=== PATIENT | female | born 1950 | race Caucasian/White ===

== ENCOUNTER → 2016-11-26 | Outpatient (CLI) | payer OTHER ==
[~2016-11-26] MED LIST: ACET500T57 PO; ATEN50TA8 PO; CLOP1TAB15 PO; IPRA1AER2 INH; NAPR1TAB9 PO; NARA2.5T2 PO; SNG10 PO
--- NOTE | 2016-11-26 15:47 | DIAGNOSTIC IMAGING REPORT ---
LEFT CLAVICLE 2 VIEWS HISTORY: Left clavicle PAIN COMPARISON: None. FINDINGS: There is no fracture or dislocation. Soft tissues are unremarkable. No radiopaque foreign bodies. IMPRESSION: No fractures. Electronically signed by: Ash Lopez M.D. 11/26/2016 3:46 PM Dictated Date/Time: 11/26/2016 3:45 PM
--- NOTE | 2016-11-26 15:49 | DIAGNOSTIC IMAGING REPORT ---
LEFT SHOULDER MIN 2 VIEWS ROUTINE CLINICAL HISTORY: PAIN pain COMPARISON: None. DISCUSSION: The bones and joint spaces appear intact. There is no evidence of fracture, dislocation or bony disease. There is no evidence for soft tissue swelling. IMPRESSION: Negative study. Electronically signed by: Rai Cordoba M.D. 11/26/2016 3:48 PM Dictated Date/Time: 11/26/2016 3:44 PM
--- NOTE | 2016-11-27 15:20 | CODING QUERY NO DIAGNOSIS ---
TREATMENT RENDERED WITHOUT A DIAGNOSIS To promote full compliance with coding requirements relating to patient care, physician participation is requested in all cases of accounting file clerk uncertainty. Please assist us with providing a diagnosis/symptom for the test(s) below: A diagnosis/symptom was not documented on your Order. A valid diagnosis/symptom is required to bill all insurances. Please remember that we are unable to code a diagnosis of rule out, probable, possible, questionable, or suspected. Tests that require a diagnosis: * CLAVICLE XRAY DIAGNOSIS: * SHOULDER MIN 2 VIEWS DIAGNOSIS: Provider Signature: Date: Thank you Cherelle Pacheco RIVS Information Management Once completed, please kindly fax back to [phone] For questions please call [phone]
== END | disposition home or self-care (01) ==
LOC: C.RAD 15:01
PROVIDERS: ATTEND Physician Assistant Medical
DX: Z00.00 Encounter for general adult medical examination without abnormal findings (principal)

== ENCOUNTER → 2017-03-26 | Outpatient (CLI) | payer OTHER ==
[2017-03-26 13:01] LABS: ESTIMATED AVERAGE GLUCOSE 120 mg/dl; HA1C FLAG Normal (Normal)
[2017-03-26 13:49] LABS: CHOLESTEROL/HDL RATIO 5.1
== END | disposition home or self-care (01) ==
LOC: C.LABBFT 08:18
PROVIDERS: ATTEND Family Medicine
DX: R73.01 Impaired fasting glucose (principal); Z91.89 Other specified personal risk factors, not elsewhere classified

== ENCOUNTER → 2018-05-16 | Outpatient (CLI) | payer OTHER, MEDICARE ==
[~2018-05-16] MED LIST changes: -ACET500T57 PO; +ACET500T58 PO; +MONT1TAB3 PO; -SNG10 PO
--- NOTE | 2018-05-16 13:08 | MAMMOGRAPHY REPORT ---
BILATERAL DIGITAL SCREENING MAMMOGRAM TOMOSYNTHESIS WITH CAD: 05/16/2018 CLINICAL HISTORY: Routine screening. Patient has no complaints. TECHNIQUE: The study was acquired using full field digital technology and interpreted from soft copy. Breast tomosynthesis in addition to standard 2D mammography was performed. Current study was also ev aluated with a Computer Aided Detection (CAD) system. COMPARISON: Comparison is made to exams dated: 02/14/2016 mammogram, 01/18/2015 mammogram, 03/10/2004 ma mmogram, 10/08/2009 mammogram, and 06/23/2013 ultrasound - [facility] [address]. BREAST COMPOSITION: The tissue of both breasts is heterogeneously dense, which may obscure small mass es. FINDINGS: The parenchymal pattern is unchanged. No developing mass, architectural distortion or cluster of susp icious microcalcifications is seen in either breast. IMPRESSION: ACR BI-RADS CATEGORY 2: BENIGN There is no mammographic evidence of malignancy. A 1 year screening mammogram is recommended.( 019) The patient will receive written notification of the results. Some breast cancers are not detected with mammography. A negative mammographic report should not kimberly y biopsy if a clinically suggestive mass is present. Michelle Sharp M.D. ay/:05/16/2018 10:49:17 Photographer Lithographic: RT Umesh(Tracy)(M), [facility] [address] letter sent: Normal 1/2 BI-RADS Code: ACR BI-RADS Category 2: Benign
== END | disposition home or self-care (01) ==
LOC: C.MAMM 09:30
PROVIDERS: ATTEND Family Medicine
DX: Z12.31 Encounter for screening mammogram for malignant neoplasm of breast (principal)

== ENCOUNTER 2024-10-13 17:56 | Inpatient (IN) ==
[2024-10-13 18:33] LABS: Basophils # (auto) 0.06 K/uL (0.00-0.20); Basophils % (auto) 0.7 %; Eosinophils # (auto) 0.13 K/uL (0.00-0.50); Eosinophils % (auto) 1.5 %; Hemoglobin 14.7 g/dl (12.0-16.0); Immature Granulocytes # (auto) 0.03 K/uL (0.01-0.20); Immature Granulocytes % (auto) 0.3 %; Lymphocytes # (auto) 2.72 K/uL (1.20-3.40); Mean Corpuscular Hemoglobin 29.9 pg (25.0-34.0); Mean Corpuscular Hgb Conc 34.2 g/dL (32.0-36.0); Mean Corpuscular Volume 87.4 fL (80.0-100.0); Mean Platelet Volume 9.9 fL (9.4-12.4); Monocytes # (auto) 0.92 K/uL (0.11-0.59); Monocytes % (auto) 10.5 %; Neutrophils # (auto) 4.91 K/uL (1.40-6.50); Platelet Count 244 K/uL (130-400); RDW Coefficient of Variation 13.2 % (11.5-14.5); RDW Standard Deviation 42.1 fL (36.4-46.3); Red Blood Count 4.92 M/uL (4.20-5.40); White Blood Count 8.77 K/ul (4.8-10.8)
[2024-10-13] MEDS: ONDANSETRON INJ 2 MG/ML 2 ML VIAL IV STA (18:50)
[2024-10-13 18:51] LABS: Albumin Globulin Ratio 1.3 (0.9-2); BUN Creatinine Ratio 20.8 (10-20); Bilirubin,Total 0.5 mg/dl (0.2-1.0); Calcium 9.2 mg/dl (8.6-10.3); Creatinine Clr Calc Pharmacy 50.3 ml/min
[2024-10-13] MEDS: MoRPHine SULFATE 4 MG/ML 1 ML CARP\\VIAL IV STA (18:52)
--- NOTE | 2024-10-13 18:53 | Emergency Department Note ---
Impression & Plan Hydronephrosis due to obstruction of ureter, Hypertension, Ureterolithiasis, Acute left flank pain ED Provider Note NAME: DEANNA LEES AGE: 74 SEX: F : 1950 ARRIVES VIA: Walk-In INFORMANT: Patient ED PROVIDER(S): Quentin Mathew MD CHIEF COMPLAINT: Left flank pain PLAN: Disposition: Admit MEDICAL DECISION MAKING: The patient is a pleasant 74-year-old woman with a past medical history of small bowel perforation in 2016, who presents to the emergency department via walk-in for evaluation of acute onset left flank and lower abdominal pain associated nausea and vomiting began approximate an hour prior to arrival. Patient denies any history of similar symptoms. She denies any history of kidney stones. She denies any blood in urine or burning with urination. She denies any fevers, chills, cough, congestion, diarrhea or constipation. On evaluation the patient is uncomfortable but no distress, afebrile with blood pressure in the 230/130s in the setting of her discomfort and vital signs otherwise stable. She appears clinically dry. She has mild left lower abdominal and left flank discomfort without discrete tenderness. EKG without overt acute ischemia. CXR negative for acute cardiopulmonary process per my personal preliminary review/interpretation. WBC, H/H and platelets within normal limits. Chemistry without metabolic acidosis. LFTs unremarkable. High-sensitivity troponin 3.1, within normal limits. UA with out evidence of infection. CT of the abdomen pelvis was performed and demonstrates mild left-sided hydronephrosis and hydroureter related to a 2 mm distal ureteral calculus send 1 cm of the UVJ. Upon reevaluation patient did report some improvement following IV hydration, IV morphine x 2, Zofran and Phenergan though she did report feeling as though the pain was returning and ultimately did prefer admission for further observation and management. Case was discussed with Dr. Coronado, [facility] hospitalist, who will evaluate the patient for admission. Further management per admitting team. Triage Nursing notes reviewed and agree them. Prior/external medical records reviewed Vital Signs: reviewed Differential diagnosis: Renal colic, UTI, appendicitis, diverticulitis, mesenteric ischemia, aortic pathology, infections, inflammatory bowel disease, PUD, biliary pathology, as well as other pathologies. ER treatment provided: See below. Diagnostics interpreted by me: ECG: Normal sinus rhythm, 64 bpm, no ectopy, no overt ST elevation or depression, LVH, QTc 441, QRS 82 Cardiac Monitoring: An order for continuous cardiac monitoring was placed and demonstrated Normal sinus rhythm, 64 bpm, no ectopy. Laboratory studies: See below Imaging studies: See below Consultation(s): Case was discussed with Dr. Coronado, [facility] hospitalist, who will evaluate the patient for admission. HPI: The patient is a pleasant 74-year-old woman with a past medical history of small bowel perforation in 2016, who presents to the emergency department via walk-in for evaluation of acute onset left flank and lower abdominal pain associated nausea and vomiting began approximate an hour prior to arrival. Patient denies any history of similar symptoms. She denies any history of kidney stones. She denies any blood in urine or burning with urination. She denies any fevers, chills, cough, congestion, diarrhea or constipation. ROS: See above HPI for pertinent positives & negatives. A total of 10 systems reviewed and were otherwise negative. VITALS:See Below PHYSICAL EXAMINATION: GENERAL: Awake, alert, uncomfortable-appearing, in no distress, BMI 28.9. HENT: Normocephalic, atraumatic. Oropharynx with dry mucous membranes and otherwise unremarkable. EYES: Normal conjunctiva. Sclera non-icteric. NECK: Supple. No nuchal rigidity. FROM. No JVD. RESPIRATORY: Clear to auscultation. CARDIAC: Regular rate, normal rhythm. Extremities warm and well perfused. Pulses equal. ABDOMEN: Soft, non-distended. Mild left lower abdominal and left flank discomfort without discrete tenderness. MUSCULOSKELETAL: Chest examination reveals no tenderness. The back is symmetrical on inspection without obvious abnormality. There is no CVA tenderness to palpation. No joint edema. LOWER EXTREMITIES: Calves are equal size bilaterally and non-tender. No edema. No discoloration. NEURO: Normal sensorium. No sensory or motor deficits noted. SKIN: No rash or jaundice noted. Quentin Mathew MD Past Med/Surg History Problem List (Updated 10/14/24 @ 03:09 by Quentin Mathew MD) Acute left flank pain (Acute) Ureterolithiasis (Acute) Hypertension (Acute) Hydronephrosis due to obstruction of ureter (Acute) COVID (Acute) HTN (hypertension) (Chronic) Duodenal perforation (Acute) Dysphagia (Acute) Hemorrhagic cystitis (Acute) Hemorrhagic cystitis (Acute) Swelling of right little finger (Acute) Social History Smoking Status: Former smoker Preferred Language: Hebrew Feels Safe at Home: Yes Allergies Allergies Allergy/AdvReac Type Severity Reaction Status Date / Time spironolactone Allergy Mild RAPID HR Verified 10/13/24 23:59 AND SOB SUN Inhibitors Allergy Unknown SWELLING Verified 10/13/24 23:59 IN FACE apple Allergy Unknown HIVES Verified 10/13/24 23:59 Bactrim Allergy Unknown THRUSH Unverified 04/10/18 11:09 cabbage Allergy Unknown HIVES Verified 10/13/24 23:59 nut - unspecified Allergy Unknown SWELLING Verified 10/13/24 23:59 orange Allergy Unknown HIVES Verified 10/13/24 23:59 sulfamethoxazole [Bactrim] Allergy Unknown THRUSH Unverified 10/13/24 23:59 trimethoprim [Bactrim] Allergy Unknown THRUSH Unverified 10/13/24 23:59 Home Meds Home Medications Medication Instructions Recorded Confirmed albuterol sulfate 90 mcg/actuation 2 inh inhalation Q4H PRN Shortness 10/13/24 10/14/24 breath activated powder inhaler Of Breath atenolol 50 mg tablet 50 mg PO DAILY 10/13/24 10/14/24 clopidogrel 75 mg tablet (Plavix) 75 mg PO DAILY 10/13/24 10/14/24 famotidine 40 mg tablet 40 mg PO DAILY 10/13/24 10/14/24 montelukast 10 mg tablet 10 mg PO DAILY 10/13/24 10/14/24 pantoprazole 40 mg tablet,delayed 40 mg PO DAILY 10/13/24 10/14/24 release (Protonix) polyethylene glycol 3350 17 gram 17 g PO DAILY 10/13/24 10/14/24 oral powder packet (Miralax) psyllium 1 packet PO DAILY 10/13/24 10/14/24 Results & Data (ED) Vital Signs Vital Signs - 24 hr 10/13/24 17:57 10/13/24 17:57 10/13/24 18:57 Temperature 36.6 C Temperature Source Temporal Artery Scan Pulse Rate 71 Pulse Rate [Apical] Respiratory Rate 18 18 Respiratory Effort / Characteristics Respiratory Depth Respiratory Pattern Blood Pressure 239/131 H Blood Pressure [Right Arm] Blood Pressure Mean 167 Blood Pressure Mean [Right Arm] Blood Pressure Position [Right Arm] Pulse Oximetry 98 96 91 Oxygen Delivery Method Room Air Sepsis Recent Fever Within 48 Hours No Sepsis New/Unexplained Change in Mental Status N/A Sepsis Action Taken by Nursing No Action Required 10/13/24 18:57 10/13/24 19:02 10/13/24 19:07 Temperature Temperature Source Pulse Rate 74 63 Pulse Rate [Apical] 64 Respiratory Rate 18 19 Respiratory Effort / Characteristics Non-Labored Spontaneous Respiratory Depth Normal Respiratory Pattern Regular Blood Pressure Blood Pressure [Right Arm] 221/111 H Blood Pressure Mean Blood Pressure Mean [Right Arm] 147 Blood Pressure Position [Right Arm] Pulse Oximetry 91 93 Oxygen Delivery Method Room Air Room Air Sepsis Recent Fever Within 48 Hours Sepsis New/Unexplained Change in Mental Status Sepsis Action Taken by Nursing 10/13/24 19:55 10/13/24 20:04 10/13/24 20:30 Temperature Temperature Source Pulse Rate Pulse Rate [Apical] 87 90 87 Respiratory Rate 22 20 20 Respiratory Effort / Characteristics Non-Labored Spontaneous Non-Labored Spontaneous Respiratory Depth Normal Normal Respiratory Pattern Regular Regular Blood Pressure Blood Pressure [Right Arm] 250/133 H 195/106 H 186/133 H Blood Pressure Mean Blood Pressure Mean [Right Arm] 172 135 150 Blood Pressure Position [Right Arm] Semi-fowlers Semi-fowlers Semi-fowlers Pulse Oximetry 93 92 93 Oxygen Delivery Method Room Air Room Air Room Air Sepsis Recent Fever Within 48 Hours Sepsis New/Unexplained Change in Mental Status Sepsis Action Taken by Nursing 10/13/24 20:55 10/13/24 21:30 10/13/24 22:00 Temperature Temperature Source Pulse Rate Pulse Rate [Apical] 80 105 H 95 H Respiratory Rate 19 18 26 H Respiratory Effort / Characteristics Non-Labored Spontaneous Non-Labored Spontaneous Non-Labored Spontaneous Respiratory Depth Normal Normal Normal Respiratory Pattern Regular Regular Regular Blood Pressure Blood Pressure [Right Arm] 204/107 H 200/120 H 208/115 H Blood Pressure Mean Blood Pressure Mean [Right Arm] 139 146 146 Blood Pressure Position [Right Arm] Semi-fowlers Semi-fowlers Pulse Oximetry 93 91 93 Oxygen Delivery Method Room Air Room Air Room Air Sepsis Recent Fever Within 48 Hours Sepsis New/Unexplained Change in Mental Status Sepsis Action Taken by Nursing 10/13/24 22:52 10/13/24 23:04 Temperature Temperature Source Pulse Rate 81 Pulse Rate [Apical] 73 Respiratory Rate 25 H Respiratory Effort / Characteristics Non-Labored Spontaneous Respiratory Depth Normal Respiratory Pattern Regular Blood Pressure Blood Pressure [Right Arm] 184/112 H Blood Pressure Mean Blood Pressure Mean [Right Arm] 136 Blood Pressure Position [Right Arm] Semi-fowlers Pulse Oximetry 93 Oxygen Delivery Method Room Air Sepsis Recent Fever Within 48 Hours Sepsis New/Unexplained Change in Mental Status Sepsis Action Taken by Nursing Laboratory Data 10/13/24 18:12 10/13/24 18:12 Lab Results 10/13/24 10/13/24 Range/Units 18:12 18:40 WBC 8.77 (4.8-10.8) K/ul RBC 4.92 (4.20-5.40) M/uL Hgb 14.7 (12.0-16.0) g/dl Hct 43.0 (37.0-47.0) % MCV 87.4 (80.0-100.0) fL MCH 29.9 (25.0-34.0) pg MCHC 34.2 (32.0-36.0) g/dL RDW Std Deviation 42.1 (36.4-46.3) fL RDW Coeff of Heri 13.2 (11.5-14.5) % Plt Count 244 (130-400) K/uL MPV 9.9 (9.4-12.4) fL Immature Gran % (Auto) 0.3 % Neut % (Auto) 56.0 % Lymph % (Auto) 31.0 % [place] % (Auto) 10.5 % Eos % (Auto) 1.5 % Baso % (Auto) 0.7 % Neut # (Auto) 4.91 (1.40-6.50) K/uL Lymph # (Auto) 2.72 (1.20-3.40) K/uL [place] # (Auto) 0.92 H (0.11-0.59) K/uL Eos # (Auto) 0.13 (0.00-0.50) K/uL Baso # (Auto) 0.06 (0.00-0.20) K/uL Immature Gran # (Auto) 0.03 (0.01-0.20) K/uL PT 9.7 (9.0-12.0) Seconds INR 0.9 (0.9-1.1) APTT 25 (21-31) Seconds PTT Ratio 0.9 Sodium 142 (136-145) mmol/L Potassium 4.0 (3.5-5.1) mmol/L Chloride 108 H (98-107) mmol/L Carbon Dioxide 28 (21-32) mmol/L Anion Gap 6 (3-11) BUN 21 (6-23) mg/dl Creatinine 1.01 (0.6-1.2) mg/dl Est Cr Clr Drug Dosing 50.3 ml/min eGFR 59.15 BUN/Creatinine Ratio 20.8 H (10-20) Glucose 115 H (70-99(Fasting)) mg/dl Calcium 9.2 (8.6-10.3) mg/dl Total Bilirubin 0.5 (0.2-1.0) mg/dl AST 18 (13-39) U/L ALT 18 (7-52) U/L Alkaline Phosphatase 89 (34-104) U/L Troponin I High Sens 3.1 (0-14) pg/ml Total Protein 7.0 (6.0-8.3) gm/dl Albumin 4.0 (3.4-5.0) gm/dl Globulin 3.0 (2.5-4.0) gm/dl Albumin/Globulin Ratio 1.3 (0.9-2) Urine Color Yellow Urine Appearance Clear (Clear) Urine pH 6.0 (4.5-7.5) Ur Specific [place] 1.017 (1.000-1.030) Urine Protein Negative (Negative) Urine Glucose (UA) Negative (Negative) Urine Ketones Negative (Negative) Urine Blood Trace H (Negative) Urine Nitrite Negative (Negative) Urine Bilirubin Negative (Negative) Urine Urobilinogen Negative (Negative) Ur Leukocyte Esterase Negative (Negative) Urine WBC (Auto) 0-5 (0-5) /hpf Urine RBC (Auto) 3-5 H (0-2) /hpf U Hyaline Cast (Auto) 0-2 (0-2) /lpf U Epithel Cells (Auto) 0-2 (0-2) /hpf Urine Bacteria (Auto) None Seen (None Seen) Administered Medications Discontinued Medications Hydromorphone HCl (Hydromorphone Inj 0.5 Mg/0.5 Ml Syr) 0.5 mg IV NOW STA Stop: 10/13/24 23:18 Last Admin: 10/13/24 23:28 Dose: 0.5 mg Documented By: Acetaminophen (Ofirmev) 1,000 mg in 100 mls @ 400 mls/hr IV NOW STA Stop: 10/13/24 19:00 Last Infusion: 10/13/24 19:59 Dose: Infused Documented By: Admin: 10/13/24 19:05 Dose: 400 mls/hr Documented By: ALAYNA Sodium Chloride (Nss) 1,000 mls @ 999 mls/hr IV .Q1H1M ONE Stop: 10/13/24 19:46 Last Infusion: 10/13/24 20:37 Dose: Infused Documented By: Admin: 10/13/24 18:57 Dose: 999 mls/hr Documented By: ALAYNA Promethazine HCl (Phenergan) 6.25 mg in 50.25 mls @ 201 mls/hr IV NOW STA Stop: 10/13/24 20:02 Last Admin: 10/13/24 20:55 Dose: Not Given Documented By: ALAYNA Ioversol (Optiray 320 100ml) 93 ml IV ONCE ONE Stop: 10/13/24 19:16 Last Admin: 10/13/24 19:15 Dose: 93 ml Documented By: EHSAN Ioversol (Optiray 320 100ml) 113 ml IV ONCE ONE Stop: 10/13/24 19:38 Last Admin: 10/13/24 19:37 Dose: 113 ml Documented By: EHSAN Labetalol HCl (Labetalol Hcl Iv 5 Mg/Ml 20ml) 10 mg IV NOW STA Stop: 10/14/24 00:53 Last Admin: 10/14/24 01:10 Dose: 10 mg Documented By: Labetalol HCl (Labetalol Hcl Iv 5 Mg/Ml 20ml) 10 mg IV NOW STA Stop: 10/14/24 02:31 Last Admin: 10/14/24 02:46 Dose: 10 mg Documented By: Morphine Sulfate (Morphine Sulfate 4 Mg/Ml 1 Ml Carp\Vial) 4 mg IV NOW STA Stop: 10/13/24 18:45 Last Admin: 10/13/24 18:52 Dose: 4 mg Documented By: ALAYNA Morphine Sulfate (Morphine Sulfate 10 Mg/Ml Carp/Vial) 6 mg IV NOW STA Stop: 10/13/24 19:48 Last Admin: 10/13/24 19:54 Dose: 6 mg Documented By: ALAYNA Ondansetron HCl (Ondansetron Inj 2 Mg/Ml 2 Ml Vial) 4 mg IV NOW STA Stop: 10/13/24 18:45 Last Admin: 10/13/24 18:50 Dose: 4 mg Documented By: ALAYNA Imaging Data Radiologist's Impression: Abdomen/Pelvis CT 10/13/24 18:16 Exam(s): CT ABDOMEN + PELVIS With Contrast IV Amt: 113ML OPTIRAY 320 EXAM: CT Abdomen and Pelvis With Intravenous Contrast CLINICAL HISTORY: Reason for exam: left flank pain. TECHNIQUE: Axial computed tomography images of the abdomen and pelvis with intravenous contrast. CTDI is 21.18 mGy and DLP is 1008.65 mGy-cm. Automated exposure control was utilized for the study. A dose lowering technique was utilized adhering to the principles of ALARA. CONTRAST: Patient received 113ML OPTIRAY 320 of IV contrast COMPARISON: July 10, 2015 FINDINGS: Lung bases: Unremarkable. No mass. No consolidation. ABDOMEN: Liver: The liver is enlarged measuring 20 cm craniocaudad. No focal liver mass lesion is seen. Gallbladder and bile ducts: Previous cholecystectomy. No choledocholithiasis is seen. No ductal dilation. Pancreas: Unremarkable. No mass. No ductal dilation. Spleen: Unremarkable. No splenomegaly. Adrenals: Unremarkable. No mass. Kidneys and ureters: Slightly delayed left nephrogram with mild left hydronephrosis and hydroureter down to a 2 mm calculus in the distal left ureter located within 1 cm of the ureterovesicular junction.. Stomach and bowel: There is diverticulosis of the left and sigmoid colon without evidence of acute diverticulitis. There is mild diffuse wall thickening throughout the entire colon due to decompressed status. No pneumoperitoneum, free fluid, or acute inflammation is seen. There is an anastomotic staple line along the stomach which is otherwise unremarkable. No obstruction. PELVIS: Appendix: No findings to suggest acute appendicitis. Bladder: Unremarkable. No mass. Reproductive: Unremarkable as visualized. ABDOMEN and PELVIS: Intraperitoneal space: See above. Bones/joints: No acute fracture. No dislocation. Soft tissues: Unremarkable. Vasculature: The abdominal aorta is mildly calcified but nondilated. Lymph nodes: Unremarkable. No enlarged lymph nodes. IMPRESSION: 1. Slightly delayed left nephrogram with mild left hydronephrosis and hydroureter down to a 2 mm calculus in the distal left ureter located within 1 cm of the ureterovesicular junction.. 2. There is diverticulosis of the left and sigmoid colon without evidence of acute diverticulitis. There is mild diffuse wall thickening throughout the entire colon due to decompressed status. No pneumoperitoneum, free fluid, or acute inflammation is seen. Electronically signed by: Orlando Miranda MD 10/13/24 20:08 PM Chest X-Ray 10/13/24 18:16 Chest radiograph, one view History: Chest pain Comparison: CT from 05/18/2015 Findings: Single AP view of the chest performed. No focal consolidation or pleural effusion. No pneumothorax. The cardiomediastinal silhouette is within normal limits. Prominence of the pulmonary vasculature. Calcified granuloma over the right lower lung. No evidence for lymphadenopathy. No visualized bony or soft tissue abnormality. Impression: Prominence of the pulmonary vasculature suggesting pulmonary venous hypertension. Otherwise no acute process Electronically signed by Stu Quintanilla 10-13-2024 6:52 PM Discharge Plan Visit Data Chief Complaint: Pain (Generalized) Stated Complaint: LEFT SIDE PAIN, NAUSEA, VOMITING ED Provider: Quentin Mathew Discharge Problem: Hydronephrosis due to obstruction of ureter, Hypertension, Ureterolithiasis, Acute left flank pain Discharge Instructions Interventions: ED Discharge Assessment Last Done: 10/14/24 02:50 Discharge Problem: Hypertension Qualifiers: Hypertension type: unspecified Qualified Code(s): I10 - Essential (primary) hypertension
[2024-10-13 18:56] LABS: Troponin I High Sensitivity 3.1 pg/ml (0-14)
[2024-10-13] MEDS: SODIUM CHLORIDE 0.9% 1,000 ML IV ONE (18:57)
[2024-10-13 19:04] LABS: Appearance Urine Clear (Clear); Bacteria Urine Automated None Seen (None Seen); Bilirubin Urine Negative (Negative); Blood Urine Trace (Negative); Cast Urine Automated 0-2 /lpf (0-2); Color Urine Yellow; Epithelial Cell Urine Auto 0-2 /hpf (0-2); Glucose Urine UA Negative (Negative); Ketones Urine Negative (Negative); Leukocyte Esterase Urine Negative (Negative); Nitrite Urine Negative (Negative); Protein Urine Negative (Negative); Specific Gravity Urine 1.017 (1.000-1.030); Urobilinogen Urine Negative (Negative); WBC Urine Automated 0-5 /hpf (0-5)
[2024-10-13] MEDS: ACETAMINOPHEN 1,000 MG/100 ML VIAL IV STA (19:05)
[2024-10-13 19:10] LABS: INR 0.9 (0.9-1.1); Partial Thromboplastin Ratio 0.9; Partial Thromboplastin Time 25 Seconds (21-31); Prothrombin Time 9.7 Seconds (9.0-12.0)
[2024-10-13] MEDS: OPTIRAY 320 100ml IV ONE ×2 (19:15→19:37)
[2024-10-13] MEDS: MoRPHine SULFATE 10 MG/ML CARP/VIAL IV STA (19:54)
--- NOTE | 2024-10-13 20:09 | CT Scan Report ---
Exam(s): CT ABDOMEN + PELVIS With Contrast IV Amt: 113ML OPTIRAY 320 EXAM: CT Abdomen and Pelvis With Intravenous Contrast CLINICAL HISTORY: Reason for exam: left flank pain. TECHNIQUE: Axial computed tomography images of the abdomen and pelvis with intravenous contrast. CTDI is 21.18 mGy and DLP is 1008.65 mGy-cm. Automated exposure control was utilized for the study. A dose lowering technique was utilized adhering to the principles of ALARA. CONTRAST: Patient received 113ML OPTIRAY 320 of IV contrast COMPARISON: July 10, 2015 FINDINGS: Lung bases: Unremarkable. No mass. No consolidation. ABDOMEN: Liver: The liver is enlarged measuring 20 cm craniocaudad. No focal liver mass lesion is seen. Gallbladder and bile ducts: Previous cholecystectomy. No choledocholithiasis is seen. No ductal dilation. Pancreas: Unremarkable. No mass. No ductal dilation. Spleen: Unremarkable. No splenomegaly. Adrenals: Unremarkable. No mass. Kidneys and ureters: Slightly delayed left nephrogram with mild left hydronephrosis and hydroureter down to a 2 mm calculus in the distal left ureter located within 1 cm of the ureterovesicular junction.. Stomach and bowel: There is diverticulosis of the left and sigmoid colon without evidence of acute diverticulitis. There is mild diffuse wall thickening throughout the entire colon due to decompressed status. No pneumoperitoneum, free fluid, or acute inflammation is seen. There is an anastomotic staple line along the stomach which is otherwise unremarkable. No obstruction. PELVIS: Appendix: No findings to suggest acute appendicitis. Bladder: Unremarkable. No mass. Reproductive: Unremarkable as visualized. ABDOMEN and PELVIS: Intraperitoneal space: See above. Bones/joints: No acute fracture. No dislocation. Soft tissues: Unremarkable. Vasculature: The abdominal aorta is mildly calcified but nondilated. Lymph nodes: Unremarkable. No enlarged lymph nodes. IMPRESSION: 1. Slightly delayed left nephrogram with mild left hydronephrosis and hydroureter down to a 2 mm calculus in the distal left ureter located within 1 cm of the ureterovesicular junction.. 2. There is diverticulosis of the left and sigmoid colon without evidence of acute diverticulitis. There is mild diffuse wall thickening throughout the entire colon due to decompressed status. No pneumoperitoneum, free fluid, or acute inflammation is seen. Electronically signed by: Orlando Miranda MD 10/13/24 20:08 PM
[2024-10-13] MEDS: PROMETHAZINE 6.25 MG/50.25 ML BAG IV STA (20:55)
[2024-10-13] MEDS: HYDROmorphone INJ 0.5 MG/0.5 ML SYR IV STA (23:28)
[2024-10-14] MEDS: LABETALOL HCL IV 5 MG/ML 20ML IV STA ×2 (01:10→02:46)
[2024-10-14] MEDS ORDERED: LABETALOL HCL IV 5 MG/ML 20ML IV PRN ×2 (02:49→14:42)
[2024-10-14] MEDS ORDERED: POLYETHYLENE (MIRALAX) 17 GM PACK PO PRN (02:49)
[2024-10-14] MEDS ORDERED: ONDANSETRON INJ 2 MG/ML 2 ML VIAL IV PRN ×2 (02:49→14:42)
[2024-10-14] MEDS ORDERED: HYDROmorphone INJ 0.5 MG/0.5 ML SYR IV PRN (02:49)
[2024-10-14] MEDS ORDERED: ALBUTEROL HFA 8 GM INHALER INH PRN (02:56)
[2024-10-14] MEDS: SODIUM CHLORIDE 0.9% 1,000 ML IV SCH (03:36)
--- OUTSIDE RECORDS SUMMARY | 2024-10-14 04:27 | External Medical Summary | Summary of Care ---
Author Name Unknown Organization [facility] Address [address] [place] [address] Phone [phone] Care Team Providers Care Linux Kernel Developer Name Role Phone Layo Flores MD Primary Care Provider Encounter Details Date Type Department Care Team (Late st Contact Info) Description 07/03/2024 Telephone Interventional [facility] C[facility] [address] [place] [address] Jaycee Schmidt MD [address] [place] [address] Allergies Active Allergy Reactions Criticality Noted Date Comments Trevon Inhibitors 09/06/2002 Swelling in face Sulfamethoxazole-Trimeth oprim Rash 12/09/2016 Food (See Comments) 11/29/2001 Nuts: lip/throat swelling Cephalexin Other (Please comment) 12/14/2021 thrush Levofloxacin 11/03/2017 Rash on day 7 of abx Spironolactone Tachycardia 11/18/2011 Heart racing documented as of this encounter (statuses as of 10/02/2024) Medications fluticasone (FLONASE) 50 MCG/ACT nasal sprayIndications: PND (post-nasal drip) 2 spray in each nostril daily 16 g 2 05/06/20 20 Active Additional Information Patient taking differently: 2 [place] Nasal Daily(AM), 2 spray in each nostril daily,Indications: as needed, Reported on 09/07/2024 Ipratropium-Albut cuco 20-100 MCG/ACT Inhalation Aerosol Solution Inhale by mouth. 0 15 Active Cyclobenzaprine HCl 5 MG Oral Tablet (Flexeril) TAKE 1 TABLET BY MOUTH AT BEDTIME NEEDED 15 Tablet 11/15/19 22 Active Erythromycin 2 % External Solution APPLY TO AFFECTED AREA OF FACE, 2X A DAY 60 mL 11 10/18/19 24 Active Albuterol Sulfate HFA 108 (90 Base) MCG/ACT Inhalation Aerosol SolutionIndicatio ns:Mild intermittent reactive airway disease without complication TAKE 2 INHALATION DOSING UNIT BY MOUTH 4 TIMES A DAY NEEDED FOR SHORTNESS OF BREATH OR WHEEZING. 18 g 1 01/04/20 24 Active Montelukast Sodium 10 MG Oral Tablet (Singulair) TAKE 1 TABLET BY MOUTH EVERY DAY IN THE MORNING 90 Tablet 3 03/06/20 24 Active Additional Information Patient taking differently: 10 mg Oral HS, Reported on 09/07/2024 Triamcinolone Acetonide 0.1 % External Cream (Aristocort)Indic ations:Seborrheic keratosis Apply 2x daily to irritated lesions on body intermittently when needed 80 g 05/11/20 24 Active Clopidogrel Bisulfate 75 MG Oral Tablet (pLAVix)Indicatio ns:TICKETING CLERK demyelination (HCC) TAKE 1 TABLET BY MOUTH EVERY DAY 90 Tablet 2 06/20/20 24 Active documented as of this encounter (statuses as of 10/02/2024) Active Problems Problem Noted Date Diagnosed Date 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 Gastroesophageal reflux disease with esophagitis 02/23/2019 Family history of colon cancer 07/12/2009 Cerebrovascular disease, arteriosclerotic, post- stroke 01/15/2009 Overview (01/17/2009): Modified per CVA protocol #8 Tobacco use disorder 02/03/2001 HTN, goal below 140/90 08/19/2000 documented as of this encounter (statuses as of 10/02/2024) Resolved Problems Problem Noted Date Diagnosed Date Resolved Date TICKETING CLERK demyelination 01/11/2023 01/04/2024 Prediabetes 11/14/2018 04/16/2022 Overview: Per Prediabetes protocol #1 Perforation of duodenum 07/10/201510/06 PURE HYPERCHOLESTEROLEM 04/24/200512/2008 CVA 02/03/2001 01/17/2009 Overview (01/17/2009): Modified per CVA protocol #8 TICKETING CLERK demyelination 08/19/2000 02/18/2021 Headache 11/06/2008 Overview (12/25/2015): ICD-10 update of inactive term LUMBAGO 11/06/2008 GENERAL OSTEOARTHROSIS 07/12 Sequela, post-stroke 009 Peanut allergy 02/23/2019 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 documented as of this encounter (statuses as of 10/02/2024) Immunizations Name Administration Dates Next Due COVID-19 mRNA, LNP-s, No Pre serve, 2-Dose Series (Moderna) 09/04/2021,12/09/2020,10/29/2020 H1N1 2009 Influenza, IM 08/18/2009 Pneumococcal Conjugate Vacc, 13 Valent (Prevnar) 08/05/2018 Pneumococcal Polysaccharide PPV23 (Pneumovax) 11/06/2019 Seasonal Influenza Vac., MDV , IM, 0.5 mL (Fluzone) 07/01/2015,07/18/2014,07/28/2013,07/14,07/01/2009 Seasonal Influenza, PF, 6 M & above, IM , (FluLaval or Fluzone) 07/25/2021,07/25/2020,08/05/2018 Seasonal Influenza, Quadriva lent Hd (Fluzone Hd) 07/05/2023 Seasonal Influenza, Quadriva lent Hd, 65+ Yrs 08/04/2022 Seasonal Influenza, Quadriva lent, No Preserve, IM 07/06/2017 Seasonal Influenza, Trivalen t, Adjuvanted, 65+ YRS, PF, (Fluad) 06/23/2019 TDAP (age 10 and older)(Boostrix) 11/07/2018 TDAP, Age 7 and older, IM (Adacel) 08/10/2008 Varicella Zoster Vaccine (Adult) 11/22/2015 documented as of this encounter Social History Tobacco Use Types Packs/Day Years Used Date Smoking Tobacco: Light Smoker Cigarettes 0.5 38 Smokeless Tobacco: Never Comments:Smoking since age [age], < 1/2 pk per day Alcohol Use Standard Drinks/Week Comments No 0 (1 standard drink = 0.6 oz pur e alcohol) PHQ-2 Answer Date Recorded PHQ Adult Total Score 0 07/05/2024 Hunger Vital Sign Answer Date Recorded Within the past 12 months, y ou worried that your food would run out before you got the money to buy more. Never true 07/05/20 24 Within the past 12 months, t he food you bought just didn't last and you didn't have money to get more. Never true 07/05/2024 Childcare Answer Date Recorded Do you feel overwhelmed with taking care of a child, family member or friend? No 07/05/2024 Does your family need help f inding childcare? (Household - for ages 0-17 years) Not on file 07/05/2024 Clothing Answer Date Recorded Have you been unable to get clothing when it was really needed? No 07/05/2024 Is your family able to get c lothes or diapers when needed? (Household - for ages 0-17 years) Not on file 07/05/2024 Personal Safety Answer Date Recorded Do you feel unsafe or have concerns for your saf ety? No 07/05/2024 Do you have concerns for you r family's safety? (Household - for ages 0-17 years) Not on file 07/05/2024 Utilities Answer Date Recorded Do you have trouble paying y our heating, water, or electric bill? No 07/05/2024 Is your family able to pay t he heat, water, or electric bill? (Household - for ages 0-17 years) Not on file 07/05/2024 Does your family have access to good internet? (Household - for ages 0-17 years) Not on file 07/05/2024 Employment Status Answer Date Recorded Are you unemployed or without regular income? No 07/05/2024 Does the household have a re gular source of income? (Household - for ages 0-17 years) Not on file 07/05/2024 Social Connections Answer Date Recorded How often do you feel lonely or isolated from th ose around you? Never 07/05/2024 Financial Resource Strain Answer Date R ecorded Do you have any trouble payi ng for your medications, or do you think you might in the future? No 07/05/2024 Does your family have troubl e paying for medicine? (Household - for ages 0-17 years) Not on file 07/05/2024 Transportation Needs Answer Date Record ed Do you have trouble getting a ride to medical visits or work? (Adult - for ages 18 years and over) Not on file 07/05/2024 Does your family have a hard time getting a ride to doctors visits? (Household - for ages 0-17 years) Not on file 07/05/2024 Has lack of transportation k ept you from medical appointments, meetings, work, or from getting things needed for daily living? Check all that apply. No 07/05/2024 Do you (or your family) have trouble finding or paying for a ride (transportation)? (Household - for ages 0-17 years) Not on file 07/05/2024 Housing Stability Answer Date Recorded Do you currently live in a s helter or have no steady place to sleep at night? No 07/05/2024 Do you think you are at risk of becoming homeless? (Adult - for ages 18 years and over) Not on file 07/05/2024 Does your family worry about paying for your home or becoming homeless? (Household - for ages 0-17 years) Not on file 1 Are you homeless or worried that you might be in the future? No 07/05/2024 Are you (or your family) lynn eless or worried that you might be in the future? (Household - for ages 0-17 years) Not on file Food Insecurity Answer Date Recorded Do you need food for this week? No 07/05/2024 Are you able to get enough f ood for your family? (Household - for ages 0-17 years) Not on file 07/05/2024 Does your family need food t his week? (Household - for ages 0-17 years) Not on file 07/05/2024 Do you always have enough fo od for your family? (Household - for ages 0-17 years) Not on file 07/05/2024 Comments No Sex and Gender Information Value Date Recorded Sex Assigned at Female 05/06/2020 8:33 AM EDT Legal Sex Female 5:05 AM EST Gender Identity Female 05/06/2020 8:33 AM EDT Sexual Orientation Straight 05/06/2020 8: 33 AM EDT documented as of this encounter Functional Status * Are you deaf or do you have serious difficulty hearing? Answer Date of Assessment Author No 07/10/2015 12:03 AM EDT Mary Carrasquillo RN * Are you blind or do you have serious difficulty seeing, even when wearing glasses? Answer Date of Assessment Author No 07/10/2015 12:03 AM EDT Mary Carrasquillo RN * Do you have serious difficulty walking or climbing stairs? (5 years old or older) Answer Date of Assessment Author No 07/10/2015 12:03 AM EDT Mary Carrasquillo RN * Do you have difficulty dressing or bathing? (5 years old or older) Answer Date of Assessment Author No 07/10/2015 12:03 AM EDT Mary Carrasquillo RN * Because of a physical, mental, or emotional condition, do you have difficulty doing errands alone such as visiting a doctors office or shopping? (15 years old or older) Answer Date of Assessment Author No 07/10/2015 12:03 AM EDT Mary Carrasquillo RN documented as of this encounter Mental Status * Because of a physical, mental, or emotional condition, do you have serious difficulty concentrating, remembering, or making decisions? (5 years old or older) Answer Entry Date Author No 07/10/2015 12:03 AM EDT Mary Carrasquillo RN documented in this encounter Miscellaneous Notes * Telephone Encounter - Jaqueline Pierce OSA - 07/03/2024 8:23 AM EDT ERROR documented in this encounter Plan of Treatment Upcoming Encounters Date Type Department Care Team (Late st Contact Info) Description 11/16/2024 1:30 PM EST Office Visit Interventional Pain Center [facility] [address] [facility] [place] [phone] Josey Jacob PA-C [address] [place] [address] 11/21/2024 8:30 AM EST Office Visit Gastroenterology, [facility] [address] [place] [address] Maria Fernanda Maciel CRNP [address] [place] [address] 01/03/2025 8:20 AM EDT [place] [address] [place] [address] [phone] FebruaryLayo MD [address] [place] [address] 05/22/2025 10:20 AM EDT Office Visit Dermatology, [facility] [place] [address] [place] [address] [phone] Filomena Moncada PA-C [address] [place] [address] [place] [address] Scheduled Procedures Name Priority Associated Diagnoses Date/Ti me COLONOSCOPY FLEXIBLE WITH EN DOSCOPIC ULTRASOUND EXAM Recall Pancreatic cyst Health Maintenance Due Date Last Done Comments Cologuard 1997 Sigmoidoscopy 1997 Zoster Vaccines (2 of 3) 01/17/2016 11/22/2015 Fecal Occult Blood Test 07/17/2020 07/17/2019 Adult Wellness Visit 05/19/2022 05/19/2021 Mammogram 04/21/2024 04/21/2023, 11/04, 06/28/2019, Additional history exists COVID-19 Vaccine ( season) 2024 07/13/2023, 09/04/2021, 12/09/2020, Additional history exists DXA Scan 01/18/2025 01/18/2018 Depression Screening 07/05/2025 07/05/2024 GFR 07/25/2025 07/25/2024, 05/04, 01/17/2024, Additional history exists Albumin/Creatinine Ratio 07/25/2027 07/25/2024, 01/02 DTap/Tdap Vaccines (3 - Td or Tdap) 11/07/2028 11/07/2018, 08/10/2008 Pneumococcal Vaccine: 50+ Years Completed 11/06/2019, 08/05/2018 Colonoscopy Discontinued 04/24/2024, 04/24/2024 Influenza Vaccine (FLU shot) Completed 07/05/2024, 07/05/2023, 08/04/2022, Additional history exists Colorectal Cancer Screening Discontinued HPV (Gardasil) Vaccine Aged Out No lo nger eligible based on patient's age to complete this topic Hepatitis B Vaccine Aged Out No longe r eligible based on patient's age to complete this topic MENINGOCOCCAL (MENACTRA/MENVEO) Aged Out No longer eligible based on patient's age to complete this topic documented as of this encounter Medical Devices Not on filedocumented as of this encounter Advance Directives * Full Code (Latest Code Status on File) Date Activated Date Inactivated Comments 07/09/2015 11:15 PM 07/23/2015 2:52 PM Question Answer Comments Discussion of Advance Directives occurred with: Not Discussed Does the patient have a Living Will? No Does the patient have Health Care Power of Attor mariusz? No Care Teams Linux Kernel Developer Relationship Specialty Start Date End Date February, Layo Almaguer MD PCP - General Family Medicine 06/09/23 documented as of this encounter
--- OUTSIDE RECORDS SUMMARY | 2024-10-14 04:27 | External Medical Summary | Summary of Care ---
Author Name Unknown Organization [facility] Address [address] [place] [address] Phone [phone] Care Team Providers Care Events Manager Name Role Phone Layo Flores MD Primary Care Provider Reason for Visit * Reason Onset Date Comments Appointment 07/03/2024 Encounter Details Date Type Department Care Team (Late st Contact Info) Description 07/03/2024 Telephone Interventional Pain Center, [facility] [address] [facility] [place] [address] Jaycee Schmidt MD [address] [place] [address] Appointment Allergies Active Allergy Reactions Criticality Noted Date [...] Active Additional Information Patient taking differently: 2 [place] Nasal Daily(AM), 2 spray in each nostril [...] Clopidogrel Bisulfate 75 MG Oral Tablet (pLAVix)Indicatio ns:WILDLIFE TECHNICIAN demyelination (HCC) TAKE 1 TABLET BY MOUTH EVERY DAY 90 Tablet 2 06/20/20 24 Active documented as of this encounter (statuses as of 10/02/2024) Active Problems Problem Noted Date Diagnosed Date WILDLIFE TECHNICIAN demyelination 07/05/2024 Gastroesophageal reflux disease with esophagitis 02/23/2019 Family history of colon cancer 07/12/2009 Cerebrovascular disease, arteriosclerotic, post- stroke 01/15/2009 Overview (01/17/2009): Modified per CVA protocol #8 Tobacco use disorder 02/03/2001 HTN, goal below 140/90 08/19/2000 documented as of this encounter (statuses as of 10/02/2024) Resolved Problems Problem Noted Date Diagnosed Date Resolved Date WILDLIFE TECHNICIAN demyelination 01/11/2023 01/04/2024 Prediabetes 11/14/2018 04/16/2022 Overview: Per Prediabetes protocol #1 Perforation of duodenum 07/10/201510/06 PURE HYPERCHOLESTEROLEM 04/24/2005 02/0 12/2008 CVA 02/03/2001 01/17/2009 Overview (01/17/2009): Modified per CVA protocol #8 WILDLIFE TECHNICIAN demyelination 08/19/2000 02/18/2021 Headache 11/06/2008 Overview (12/25/2015): [...] of Assessment Author No 07/10/2015 12:03 AM NANCYT Mary Carrasquillo RN * Do you have [...] of Assessment Author No 07/10/2015 12:03 AM NANCYT Mary Carrasquillo RN documented as of this encounter Mental Status * Because of a physical, mental, or emotional condition, do you have serious difficulty concentrating, remembering, or making decisions? (5 years old or older) Answer Entry Date Author No 07/10/2015 12:03 AM EDT Mary Carrasquillo RN documented in this encounter Miscellaneous Notes * Telephone Encounter - Jaqueline Pierce OSA - 07/03/2024 8:24 AM EDT Patient calling requesting an appointment for injection for July, please call patient and advise. documented in this encounter Plan of Treatment Upcoming Encounters Date Type Department Care Team (Late st Contact Info) Description 11/16/2024 1:30 PM EST Office Visit Interventional Pain Center [facility] [address] [place] [phone] Josey Jacbo PA-C [address] [place] [address] 11/21/2024 8:30 AM EST Office Visit Gastroenterology, [facility] [address] [place] [address] Maria Fernanda Maciel CRNP [address] [place] [address] 01/03/2025 8:20 AM EDT [place] [address] [place] [address] [phone] FebruaryLayo MD [address] [facility] [place] [address] 05/22/2025 10:20 AM EDT Office Visit Dermatology, [place] Cristina Calhoun [address] [place] [phone] Filomena Moncada PA-C [address] [place] [address] [place] [address] Scheduled Procedures Name Priority Associated Diagnoses Date/Ti [...] Power of Attor mariusz? No Care Teams Events Manager Relationship Specialty Start Date End Date February, Layo Almaguer MD PCP - General Family Medicine 06/09/23 documented as of this encounter
--- OUTSIDE RECORDS SUMMARY | 2024-10-14 04:28 | External Medical Summary | Summary of Care ---
Author Name Unknown Organization [facility] Address [address] [place] [address] Phone [phone] Care Team Providers Care Field Service Coordinator Name Role Phone FebruaryJorge MD Primary Care Provider [phone] Reason for Visit * Reason Comments eRx-Medication Refill Encounter Details Date Type Department Care Team (Late st Contact Info) Description 09/06/2024 Refill Family Practice [facility] [address] [facility] [place] [address] FebruaryJorge MD [address] [place] [address] [place] [phone] Allergies Active Allergy Reactions Criticality Noted Date Comments Trevon Inhibitors 09/06/2002 Swelling in face Sulfamethoxazole-Trimeth oprim Rash 12/09/2016 Food (See Comments) 11/29/2001 Nuts: lip/throat swelling Cephalexin Other (Please comment) 12/14/2021 thrush Levofloxacin 11/03/2017 Rash on day 7 of abx Spironolactone Tachycardia 11/18/2011 Heart racing documented as of this encounter (statuses as of 09/07/2024) Medications fluticasone (FLONASE) 50 MCG/ACT nasal sprayIndications :PND (post-nasal drip) 2 spray in each nostril daily 16 g 2 020 Active Additional Information Patient taking differently: 2 [place] Nasal Daily(AM), 2 spray in each nostril daily,Indications: as needed, Reported on 09/07/2024 Ipratropium-Albu terol 20-100 MCG/ACT Inhalation Aerosol Solution Inhale by mouth. 015 Active Cyclobenzaprine HCl 5 MG Oral Tablet (Flexeril) TAKE 1 TABLET BY MOUTH AT BEDTIME NEEDED 15 Tablet 022 Active Erythromycin 2 % External Solution APPLY TO AFFECTED AREA OF FACE, 2X A DAY 60 mL 11 024 Active Albuterol Sulfate HFA 108 (90 Base) MCG/ACT Inhalation Aerosol SolutionIndicati ons:Mild intermittent reactive airway disease without complication TAKE 2 INHALATION DOSING UNIT BY MOUTH 4 TIMES A DAY NEEDED FOR SHORTNESS OF BREATH OR WHEEZING. 18 g 1 024 Active Montelukast Sodium 10 MG Oral Tablet (Singulair) TAKE 1 TABLET BY MOUTH EVERY DAY IN THE MORNING 90 Tablet 3 024 Active Additional Information Patient taking differently: 10 mg Oral HS, Reported on 09/07/2024 Triamcinolone Acetonide 0.1 % External Cream (Aristocort)Marsha cations:Seborrhe ic keratosis Apply 2x daily to irritated lesions on body intermittently when needed 80 g 024 Active Clopidogrel Bisulfate 75 MG Oral Tablet (pLAVix)Indicati ons:TARGET NETWORK ANALYST demyelination (HCC) TAKE 1 TABLET BY MOUTH EVERY DAY 90 Tablet 2 024 Active Pantoprazole Sodium 40 MG Oral Tablet Delayed Release (Protonix)Indica tions:Gastroesop hageal reflux disease without esophagitis,Othe r vitamin B12 deficiency anemias Take 1 Tablet by mouth in the morning. 90 Tablet 024 Active Polyethylene Glycol 3350 17 GM/SCOOP Oral Powder (MiraLax)Indicat ions:Constipatio n, unspecified constipation type,Gastroesoph ageal reflux disease without esophagitis Take 17 g by mouth in the morning. One cap full in juice, to effect 1 stool per day. .. 510 g 11 024 Active Psyllium 58.6 % Oral Packet (Metamucil)Indic ations:Constipat ion, unspecified constipation type,Gastroesoph ageal reflux disease without esophagitis Take 1 Packet by mouth in the morning. 90 Packet 3 024 Active Atenolol 50 MG Oral Tablet (Tenormin) TAKE 1 TABLET BY MOUTH EVERY DAY 90 Tablet 3 024 Active Atenolol 50 MG Oral Tablet (Tenormin) TAKE 1 TABLET BY MOUTH EVERY DAY 90 Tablet 3 023 2023 Discontinued documented as of this encounter (statuses as of 09/07/2024) Active Problems Problem Noted Date Diagnosed Date TARGET NETWORK ANALYST demyelination 07/05/2024 Gastroesophageal reflux disease with esophagitis 02/23/2019 Family history of colon cancer 07/12/2009 Cerebrovascular disease, arteriosclerotic, post- stroke 01/15/2009 Overview (01/17/2009): Modified per CVA protocol #8 Tobacco use disorder 02/03/2001 HTN, goal below 140/90 08/19/2000 documented as of this encounter (statuses as of 09/07/2024) Resolved Problems Problem Noted Date Diagnosed Date Resolved Date TARGET NETWORK ANALYST demyelination 01/11/2023 01/04/2024 Prediabetes 11/14/2018 04/16/2022 Overview: Per Prediabetes protocol #1 Perforation of duodenum 07/10/201510/06 PURE HYPERCHOLESTEROLEM 04/24/2005 02/0 12/2008 CVA 02/03/2001 01/17/2009 Overview (01/17/2009): Modified per CVA protocol #8 TARGET NETWORK ANALYST demyelination 08/19/2000 02/18/2021 Headache 11/06/2008 Overview (12/25/2015): ICD-10 update of inactive term LUMBAGO 11/06/2008 GENERAL OSTEOARTHROSIS 07/12 Sequela, post-stroke 009 Peanut allergy 02/23/2019 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 documented as of this encounter (statuses as of 09/07/2024) Immunizations Name Administration Dates Next Due COVID-19 mRNA, LNP-s, No Pre serve, 2-Dose Series (Moderna) 09/04/2021,12/09/2020,10/29/2020 H1N1 2009 Influenza, IM 08/18/2009 Pneumococcal Conjugate Vacc, 13 Valent (Prevnar) 08/05/2018 Pneumococcal Polysaccharide PPV23 (Pneumovax) 11/06/2019 Seasonal Influenza Vac., MDV , IM, 0.5 mL (Fluzone) 07/01/2015,07/18/2014,07/28/2013,07/14,07/01/2009 Seasonal Influenza, High Dos e, Trivalent, PF, IM (Fluzone HD) 07/05/2024 Seasonal Influenza, PF, 6 M & above, [...] No 07/05/2024 Does the household have a [facility] source of income? (Household - for ages [...] of Assessment Author No 07/10/2015 12:03 AM Mary Bingham RN * Do you have serious difficulty walking or climbing stairs? (5 years old or older) Answer Date of Assessment Author No 07/10/2015 12:03 AM EDT Mary Carrasquillo RN * Do you have difficulty dressing or bathing? (5 years old or older) Answer Date of Assessment Author No 07/10/2015 12:03 AM Mary Bingham RN * Because of a physical, mental, or emotional condition, do you have difficulty doing errands alone such as visiting a doctors office or shopping? (15 years old or older) Answer Date of Assessment Author No 07/10/2015 12:03 AM Mary Bingham RN documented as of this encounter Mental Status * Because of a physical, mental, or emotional condition, do you have serious difficulty concentrating, remembering, or making decisions? (5 years old or older) Answer Entry Date Author No 07/10/2015 12:03 AM Mary Bingham RN documented in this encounter Miscellaneous Notes * Telephone Encounter - Andreas Nelson [facility] - 09/07/2024 5:14 PM ESTSigned Prescriptions: Disp Refills Atenolol 50 MG Oral Tablet (Tenormin) 90 Tab*3 Sig: TAKE 1 TABLET BY MOUTH EVERY DAYAuthorizing Provider: JORGE MCMILLAN User: ANDREAS NELSON documented in this encounter Plan of Treatment Upcoming Encounters Date Type Department Care Team (Late st Contact Info) Description 11/16/2024 1:30 PM EST Office Visit Interventional Pain Center, [facility] [address] [place] [address] Josey Jacob PA-C [address] [place] [address] 11/21/2024 8:30 AM EST Office Visit Gastroenterology, [facility] [address] [place] [address] Maria Fernanda Maciel CRNP [address] [place] [address] 01/03/2025 8:20 AM EDT Office Visit Family Practice, [facility] [address] [place] [place] [phone] FebruaryJorge MD [address] [place] [address] 05/22/2025 10:20 AM EDT Office Visit Dermatology, [place] [phone] Filomena Moncada PA-C [address] [place] [address] [place] [address] Scheduled Procedures Name Priority Associated Diagnoses Date/Ti [...] or Tdap) 11/07/2028 11/07/2018, 08/10/2008 Pneumococcal Vaccine: 65+ Years Completed 11/06/2019, 08/05/2018 Colonoscopy Discontinued 04/24/2024, [...] Power of Attor mariusz? No Care Teams Field Service Coordinator Relationship Specialty Start Date End Date February, Jorge Almaguer MD [address] [place] [address] PCP - General Family Medicine 06/09/23 documented as of this encounter
--- OUTSIDE RECORDS SUMMARY | 2024-10-14 04:28 | External Medical Summary ---
Author Name Unknown Address Unknown Organization [id number]:LABORATORY [facility] – [place], [place] - [facility] [place] [address] [place] [address] [place] [address] Laboratory Report Ordering Provider Test Date Status 07/25/2024 08:17:38 Final Normal: <30 mg/g creatinine< br/>High: 30-300 mg/g creatinine
Very High: >300 mg/g creatinine
Nephrotic: >2200 mg/g creatinine Observation Date Value Abnormality Reference (Units ) Status Albumin, Urine 07/25/2024 08:17:38 <1.20 (mg/dL) Final Creatinine, Urine 07/25/2024 08:17:38 126 (mg/dL) Final Albumin/Creatinine [Mass Ratio] in Urine 07/25/2024 08:17:38 <10 <30 (mg/g Creat) Final Performing Location LABORATORY [facility] [place], [place] - [address] [place] [address]
--- OUTSIDE RECORDS SUMMARY | 2024-10-14 04:28 | External Medical Summary ---
Author Name Unknown Address Unknown Organization [id number]:LABORATORY [facility] [place] - [facility] [address] [facility] [address] Laboratory Report Ordering Provider Test Date Status 07/25/2024 08:17:38 Final Observation Date Value Abnormality Reference (Units ) Status WBC, Total 07/25/2024 08:17:38 8.92 4.00-10.80 (K/uL) Final RBC 07/25/2024 08:17:38 4.98 3.85-5.15 (M/uL) Final Hemoglobin 07/25/2024 08:17:38 15.1 12.0-15.3 (g/dL) Final HCT 07/25/2024 08:17:38 46.0 Above high normal 36.0-45.2 (%) Final MCV 07/25/2024 08:17:38 92.4 81.5-97.5 (fL) Final MCH 07/25/2024 08:17:38 30.3 27.0-34.0 (pg) Final MCHC 07/25/2024 08:17:38 32.8 32.0-36.0 (g/dL) Final RDW 07/25/2024 08:17:38 13.0 11.5-15.5 (%) Final Platelets 07/25/2024 08:17:38 238 140-400 (K/uL) Final MPV 07/25/2024 08:17:38 10.9 6.6-11.1 (fL) Final Nucleated erythrocytes/100 leukocytes [Ratio] in Blood by Automated count 07/25/2024 08:17:38 0 <=0 (/100 WBCs) Final Performing Location LABORATORY [facility] [place] - [address] [facility] [address]
--- OUTSIDE RECORDS SUMMARY | 2024-10-14 04:28 | External Medical Summary | Continuity of Care Document ---
Author Name Unknown Organization [place] [id number] Address [address] [place] [id number] Care Team Providers Care Cops Name Role Phone Darinel Anderson Primary Care Physician [phone] Encounter [facility] JITENDRAR [id number] Date(s): 07/17/24 - 07/17/24 [facility] [address] [id number] [facility] Sports Medicine [address] [place] [id number] Encounter Diagnosis Calcific tendonitis of right shoulder region(Discharge Diagnosis) - 07/17/24 Discharge Disposition: Home or Self Care Attending Physician: FREDIS Lin Cory D Allergies, Adverse Reactions, Alerts Substance Criticality Severity Reaction Reaction Severity Status spironolactone increased HR Ac tive lisinopril 1 facial swelling A ctive Levaquin rash Active Bactrim rash Active 1allergic to all SUN's Assessment and Plan Extracted from: Title:Clinical Document Author:FREDIS Lin C ory D Date:07/17/24 OUTPATIENT NOTE Name: DEANNA LEES Patient Number:[id number] : 1950 Date of Service: 07/17/2024 Chief complaint: Right shoulder impingement HPI: This 73 year-old female presents today for another cortisone injection in her right shoulder. I last saw her 4 months ago. She denies any loss of motion. No numbness or tingling. No loss of strength. She points to the rotator cuff insertion and subacromial space as the area of discomfort. No other complaints. Physical exam General: Well-developed, well-nourished, elderly female, in no acute distress. Sitting on a chair. Alert and oriented. Skin: Warm and dry with good turgor. No rashes or lesions. No ecchymosis or erythema. No edema. Musculoskeletal: Right shoulder evaluation reveals no obvious asymmetry or deformity. She has full range of motion of the shoulder including overhead reach. Normal cross body adduction and behind the back reach. She continues to have discomfort with Dorman testing and Neer impingement testing. No appreciable weakness. Mild to moderate pain with empty can testing. No current discomfort with palpation over the shoulder unless she is stressed during resisted external rotation. No pain with palpation over the proximal biceps tendon. Elbow exam is benign. There is full motion without discomfort. Neurologic: Gross sensation is intact across the left arm by soft touch. Peripheral pulses are 2+. Impression: Right shoulder calcific tendinopathy Plan: The patient was educated regarding today's findings. Conservative care measures were discussed. She responded well to the cortisone injection previously. She would like to proceed again. I think it is reasonable. Follow-up on an as-needed basis. Continue to limit heavy overhead work or prolonged repetitive activity. Call with any other concerns. Impression: Right shoulder calcific tendinopathy Procedure: Informed oral consent was obtained for administration of a cortisone injection. Timeout was taken with nurse Martinez in the room and the right shoulder was confirmed with the patient. She was seated in a chair with her arm in her lap. A posterior lateral approach was used. Bony landmarks on the shoulder were identified and the posterior glenohumeral joint was identified and marked. Skin was cleansed Betadine x2 and an alcohol swab x1. Skin was anesthetized using ethyl chloride spray. A syringe of 1ml 1% plain lidocaine, 1 mL 0.25% plain Marcaine, and 2 mL Depo- Medrol (40 mg/mL) was injected sterilely. Free flow was obtained. The patient tolerated the procedure well. Hemostasis was achieved with a Band-Aid. This dictation has been completed using Healint text voice recognition software. Grammatical errors, omissions, insertions, and misspellings may be present due to the limitations of the software. Medications atenolol 50 mg oral tablet Start: 05/16/18 10:33:00 AM EDT, 1 tab, PO, Daily Start Date: 05/16/18 Status: Ordered Flonase Start: 05/16/18 10:34:00 AM EDT, 50 mcg =, intranasal, Daily, 2 sprays each nostril. PRN Start Date: 05/16/18 Status: Ordered montelukast 10 mg oral tablet TAKE 1 TABLET BY MOUTH EVERY DAY IN THE MORNING Start Date: 12/14/23 Status: Ordered Pepcid 20 mg oral tablet Start: 05/16/18 10:34:00 AM EDT, 2 tab, PO, Daily, PRN Start Date: 05/16/18 Status: Ordered Plavix 75 mg oral tablet Start: 05/16/18 10:33:00 AM EDT, 1 tab, PO, Daily Start Date: 05/16/18 Status: Ordered Protonix 40 mg oral delayed release tablet Start: 05/16/18 10:33:00 AM EDT, 1 tab, PO, Daily, PRN Start Date: 05/16/18 Status: Ordered Ventolin Start: 05/16/18 10:34:00 AM EDT, PRN Start Date: 05/16/18 Status: Ordered Mental Status 07/17/24 Barriers to Learning one year None evide nt Mandatory Health Literacy Documentation Yes Health Literacy Communication Barriers N ever Primary Language Lao Problem List Condition Confirmation Course Effective Dates Status Health St atus Informant Calcific tendonitis of right shoulder region Confirmed Active Stroke 1 Confirmed Active GERD (gastroesophageal reflux disease) Confirmed Active Hypertension Confirmed Active 1history of Diagnosis Diagnosis Type Effective Dates Health Status Clinical Service Informant Calcific tendonitis of right shoulder region Discharge Diagnosis 07/17/24 Vital Signs Most recent to oldest [Reference Range]: 1 Height 162.0 cm (07/17/24 7:58 AM) Patient Weight 75 kg (07/17/24 7:58 AM) Body Mass Index 28.58 kg/m2 (07/17/24 7:58 AM) Social History Social History Type Response Smoking Status Never smoked cigaret shelli Sex Female Sex Representation Female (finding) Outpatient Note * FREDIS Lin Cory D: PERFORM, MODIFY Event Display: .Outpt Note Authored Date: [id number] OUTPATIENT NOTE Name: DEANNA LEES Patient Number:[id number] : 1950 Date of Service: 07/17/2024 Chief complaint: Right shoulder impingement HPI: This 73 year-old female presents today for another cortisone injection in her right shoulder. I last saw her 4 months ago. She denies any loss of motion. No numbness or tingling. No loss of strength. She points to the rotator cuff insertion and subacromial space as the area of discomfort. No other complaints. Physical exam General: Well-developed, well-nourished, elderly female, in no acute distress. Sitting on a chair. Alert and oriented. Skin: Warm and dry with good turgor. No rashes or lesions. No ecchymosis or erythema. No edema. Musculoskeletal: Right shoulder evaluation reveals no obvious asymmetry or deformity. She has full range of motion of the shoulder including overhead reach. Normal cross body adduction and behind theback reach. She continues to have discomfort with Dorman testing and Neer impingement testing. No a ppreciable weakness. Mild to moderate pain with empty can testing. No current discomfort with palpation over the shoulder unless she is stressed during resisted external rotation. No pain with palpation over the proximal biceps tendon. Elbow exam is benign. There is full motion without discomfort. Neurologic: Gross sensation is intact across the left arm by soft touch. Peripheral pulses are 2+. Impression: Right shoulder calcific tendinopathy Plan: The patient was educated regarding today's findings. Conservative care measures were discussed. She responded well to the cortisone injection previously. She would like to proceed again. I think it is reasonable. Follow-up on an as-needed basis. Continue to limit heavy overhead work or prolonged repetitive activity. Call with any other concerns. Impression: Right shoulder calcific tendinopathy Procedure: Informed oral consent was obtained for administration of a cortisone injection. Timeout was taken with nurse Maritnez in the room and the right shoulder was confirmed with the patient. She wasseated in a chair with her arm in her lap. A posterior lateral approach was used. Bony landmarks onthe shoulder were identified and the posterior glenohumeral joint was identified and marked. Skin was cleansed Betadine x2 and an alcohol swab x1. Skin was anesthetized using ethyl chloride spray. A syringe of 1ml 1% plain lidocaine, 1 mL 0.25% plain Marcaine, and 2 mL Depo-Medrol (40 mg/mL) was injected sterilely. Free flow was obtained. The patient tolerated the procedure well. Hemostasis was achieved with a Band-Aid. This dictation has been completed using Healint text voice recognition software. Grammatical errors, omissions, insertions, and misspellings may be present due to the limitations of the software. Electronic Signature on File Electronically Reviewed/Signed by: Allen Lin PA-C Author Signature Dt/Tm:07/17/2024 02:53 PM Division of Sports Medicine Electronically Reviewed/Signed by: Shilo Gerber MD Cosigner Signature Dt/Tm: 07/17/2024 03:11 PM Credit Review Manager for Clinical Affairs, [facility] Professor in Orthopaedics Fusion Juncture Grinder, [facility] CDS Patient Care team information Care Team Personnel Name: MD Monica, Darinel Molina Position: Referring DIRECT Member Role: Primary Care Provider Address: [address] [place] [id number]
--- OUTSIDE RECORDS SUMMARY | 2024-10-14 04:28 | External Medical Summary | Summary of Care ---
Author Name Unknown Organization [facility] Address [address] [place] [address] Phone [phone] Care Team Providers Care Indirect Sales Exec Name Role Phone May, Layo Almaguer MD Primary Care Provider Reason for Visit * Reason Comments Outpatient Testing Encounter Details Date Type Department Care Team (Late st Contact Info) Description 07/25/2024 8:00 AM EDT Laboratory Laboratory, [place] [address] [place] [address] [place] [address] [place] [address] HTN, goal below 140/90; Cerebrovascular disease, arteriosclerotic, post-stroke; Prediabetes Allergies Active Allergy Reactions Criticality Noted Date Comments Trevon Inhibitors 09/06/2002 Swelling in face Sulfamethoxazole-Trimeth oprim Rash 12/09/2016 Food (See Comments) 11/29/2001 Nuts: lip/throat swelling Cephalexin Other (Please comment) 12/14/2021 thrush Levofloxacin 11/03/2017 Rash on day 7 of abx Spironolactone Tachycardia 11/18/2011 Heart racing documented as of this encounter (statuses as of 07/25/2024) Medications Medication Sig Dispensed Refills Start Date End Date Status fluticasone (FLONASE) 50 MCG/ACT nasal sprayIndications:PN D (post-nasal drip) 2 spray in each nostril daily 16 g 2 05/06/2020 Active Additional Information Patient taking differently: 2 [place] Nasal Daily(AM), 2 spray in each nostril daily,Indications: as needed, Reported on 04/18/2024 Ipratropium-Albuter ol 20-100 MCG/ACT Inhalation Aerosol Solution Inhale by mouth. 07/09/2015 Active Cyclobenzaprine HCl 5 MG Oral Tablet (Flexeril) TAKE 1 TABLET BY MOUTH AT BEDTIME NEEDED 15 Tablet 11/15/2021 Active Pantoprazole Sodium 40 MG Oral Tablet Delayed Release (Protonix) Take by mouth 1 Tablet in the morning. 90 Tablet 03/06/2022 Active Additional Information Patient taking differently:40 mg Oral Daily(AM),Indications: as needed, Reported on 04/18/2024 Atenolol 50 MG Oral Tablet (Tenormin) TAKE 1 TABLET BY MOUTH EVERY DAY 90 Tablet 3 08/31/2023 Active Additional Information Patient taking differently: 50 mg Oral HS, Reported on 04/18/2024 Erythromycin 2 % External Solution APPLY TO AFFECTED AREA OF FACE, 2X A DAY 60 mL 11 10/18/2023 Active Albuterol Sulfate HFA 108 (90 Base) MCG/ACT Inhalation Aerosol SolutionIndications :Mild intermittent reactive airway disease without complication TAKE 2 INHALATION DOSING UNIT BY MOUTH 4 TIMES A DAY NEEDED FOR SHORTNESS OF BREATH OR WHEEZING. 18 g 1 01/04/2024 Active Montelukast Sodium 10 MG Oral Tablet (Singulair) TAKE 1 TABLET BY MOUTH EVERY DAY IN THE MORNING 90 Tablet 3 03/06/2024 Active Additional Information Patient taking differently: 10 mg Oral HS, Reported on 04/18/2024 Triamcinolone Acetonide 0.1 % External Cream (Aristocort)Indicat ions:Seborrheic keratosis Apply 2x daily to irritated lesions on body intermittently when needed 80 g 05/11/2024 Active Clopidogrel Bisulfate 75 MG Oral Tablet (pLAVix)Indications :SOCK FOLDER demyelination (HCC) TAKE 1 TABLET BY MOUTH EVERY DAY 90 Tablet 2 06/20/2024 Active Famotidine 40 MG Oral Tablet (Pepcid)Indications :as needed Take 1 Tablet by mouth in the morning. 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 Gastroesophageal reflux disease with esophagitis 02/23/2019 Family history of colon cancer 07/12/2009 Cerebrovascular disease, arteriosclerotic, post- stroke 01/15/2009 Overview: Modified per CVA protocol #8 Tobacco use disorder 02/03/2001 HTN, goal below 140/90 08/19/2000 documented as of this encounter (statuses as of 07/25/2024) Resolved Problems Problem Noted Date Diagnosed Date Resolved Date SOCK FOLDER demyelination 01/11/2023 01/04/2024 Prediabetes 11/14/2018 04/16/2022 Overview: Per Prediabetes protocol #1 Perforation of duodenum 07/10/201510/06 PURE HYPERCHOLESTEROLEM 04/24/2005 0212/2008 CVA 02/03/2001 01/17/2009 Overview: Modified per CVA protocol #8 SOCK FOLDER demyelination 08/19/2000 02/18/2021 Headache 11/06/2008 Overview: ICD-10 update of inactive term LUMBAGO 11/06/2008 GENERAL OSTEOARTHROSIS 07/12 Sequela, post-stroke 009 Peanut allergy 02/23/2019 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 documented as of this encounter (statuses as of 07/25/2024) Immunizations Name Administration Dates Next Due COVID-19 [...] Date Recorded PHQ Adult Total Score 0 05/19/2021 Hunger Vital Sign Answer Date Recorded Worried About Running Out of Food in the Last Ye ar Never true 06/23/2019 Ran Out of Food in the Last Year Never true 06/23/2019 Sex and Gender Information Value Date Recorded Sex Assigned at Female 05/06/2020 8:33 AM EDT Gender Identity Female 05/06/2020 8:33 AM EDT Sexual Orientation Straight 05/06/2020 8: 33 AM EDT Job Start Date Occupation Industry Not on file Not on file Not on file documented as of this encounter Functional Status Functional Status Response Date of Assess ment Are you deaf or do you have serious difficulty h earing? No 07/10/2015 Are you blind or do you have serious difficulty seeing, even when wearing glasses? No 07/10/2015 Do you have serious difficul ty walking or climbing stairs? (5 years old or older) No 07/10/2015 Do you have difficulty dress ing or bathing? (5 years old or older) No 07/10/2015 Because of a physical, menta l, or emotional condition, do you have difficulty doing errands alone such as visiting a doctor s office or shopping? (15 years old or older) No 07/10/20 15 Cognitive Status Response Date of Assessm ent Because of a physical, menta l, or emotional condition, do you have serious difficulty concentrating, remembering, or making decisions? (5 years old or older) No 07/10/2015 documented as of this encounter Plan of Treatment Upcoming Encounters Date Type Department Care Team (Late st Contact Info) Description 08/11/2024 7:30 AM EST Office Visit Gastroenterology, [facility] [address] [place] [phone] Maria Fernanda Maciel CRNP [address] [place] [phone] 09/07/2024 1:30 PM EST Office Visit Interventional Pain Center, [facility] [address] [place] [phone] Josey Jacob PA-C [address] [place] [phone] 01/03/2025 8:20 AM EDT Office Visit [facility] [place] [address] [facility] [phone] [facility]ayo [facility] [address] [facility] [address] 05/22/2025 10:20 AM EDT Office Visit [facility], [place] [address] [facility] [address] Filomena Moncada PA-C [address] [place] [address] [place] [phone] Pending Results Name Type Priority Associated Diagnoses Date /Time CBC WITH WBC DIFFERENTIAL Lab Routine HTN, goal below 140/90 07/25/2024 8:17 AM EDT COMPREHENSIVE METABOLIC PANEL Lab Routine HTN, goal below 140/90 07/25/2024 8:17 AM EDT LIPID PANEL WITH DIRECT LDL IF TG IS HIGH Lab Routine Cerebrovascular disease, arteriosclerotic, post-stroke 07/25/2024 8:17 AM EDT HEMOGLOBIN A1C Lab Routine Prediabetes 07/25/2024 8:17 AM EDT ALBUMIN / CREATININE RATIO, URINE Lab Routine HTN, goal below 140/90 07/25/2024 8:17 AM EDT CBC Lab Routine HTN, goal below 140/90 07/25/2024 8:17 AM EDT DIFFERENTIAL, AUTOMATED Lab Routine HTN, goal below 140/90 07/25/2024 8:17 AM EDT Scheduled Procedures Name Priority Associated Diagnoses Date/Ti me COLONOSCOPY FLEXIBLE WITH EN DOSCOPIC ULTRASOUND EXAM Recall Pancreatic cyst Health Maintenance Due Date Last Done Comments Cologuard 1997 Sigmoidoscopy 1997 Fecal Occult Blood Test 07/17/2020 07/17/2019 Adult Wellness Visit 05/19/2022 05/19/2021 Mammogram 04/21/2024 04/21/2023, 11/04, 06/28/2019, Additional history exists COVID-19 Vaccine ( season) 2024 07/13/2023, 09/04/2021, 12/09/2020, Additional history exists Zoster Vaccines (2 of 3) 08/12/2024 11/22/2015 Pos tponed from 01/17/2016 (Patient Declined After Education) DXA Scan 01/18/2025 01/18/2018 GFR 05/15/2025 05/15/2024, 01/02, 07/21/2023, Additional history exists Depression Screening 07/05/2025 07/05/2024 Albumin/Creatinine Ratio 01/16/2027 01/17/2024 DTap/Tdap Vaccines (3 - Td or Tdap) [...] Not on filedocumented as of this encounter Visit Diagnoses Diagnosis HTN, goal below 140/90 Unspecified essential hypertension Cerebrovascular disease, arteriosclerotic, post-stroke Cerebral atherosclerosis Prediabetes Other abnormal glucose documented in this encounter Advance Directives * Full Code (Latest Code Status on File) Date Activated Date Inactivated Comments 07/09/2015 11:15 PM 07/23/2015 2:52 PM Question Answer Comments Discussion of Advance Directives occurred with: Not Discussed Does the patient have a Living Will? No Does the patient have Health Care Power of Attor mariusz? No Care Teams Indirect Sales Exec Relationship Specialty Start Date End Date February, Layo Almaguer MD [address] [place] [address] PCP - General Family Medicine 06/09/23 documented as of this encounter
--- OUTSIDE RECORDS SUMMARY | 2024-10-14 04:28 | External Medical Summary ---
Author Name Unknown Address Unknown Organization K01:[facility] [place] [address] [facility] [place] [address] Laboratory Report Ordering Provider Test Date Status 07/25/2024 08:17:38 Final Observation Date Value Abnormality Reference (Units ) Status BUN 07/25/2024 08:17:38 24 Above high normal 6-20 (mg/dL) Final Creatinine 07/25/2024 08:17:38 0.8 0.5-1.0 (mg/dL) Final Glomerular filtration rate/1.73 sq M.predicted [Volume Rate/Area] in Serum, Plasma or Blood by Creatinine-based formula (CKD-EPI) 07/25/2024 08:17:38 75 >=60 (mL/min) Final eGFR is calculated based on the CKD-EPI 2020 equation. Sodium 07/25/2024 08:17:38 144 135-146 (m mol/L) Final Potassium 07/25/2024 08:17:38 4.2 3.5-5.1 (m mol/L) Final Cl 07/25/2024 08:17:38 106 98-107 (mm ol/L) Final CO2 07/25/2024 08:17:38 26 22-32 (mmo l/L) Final Anion gap 07/25/2024 08:17:38 12 7-15 (mmol /L) Final Glucose 07/25/2024 08:17:38 94 70-120 (mg /dL) Final Albumin 07/25/2024 08:17:38 4.1 3.8-5.0 (g /dL) Final AST (Aspartate aminotransferase) 07/25/2024 08:17:38 16 10-35 (U/L) Final Alk Phos 07/25/2024 08:17:38 105 35-130 (U/ L) Final Bilirubin, Total 07/25/2024 08:17:38 0.5 <=1 .2 (mg/dL) Final Calcium 07/25/2024 08:17:38 9.3 8.4-10.2 ( mg/dL) Final Protein 07/25/2024 08:17:38 6.3 6.0-8.3 (g /dL) Final ALT (Alanine aminotransferase) 07/25/2024 08:17:38 20 10-35 (U/L) Final Performing Location [facility] [place] [address] [facility] [address]
--- OUTSIDE RECORDS SUMMARY | 2024-10-14 04:28 | External Medical Summary | Summary of Care ---
Author Name Unknown Organization [facility] Address [address] [place] [address] Phone [phone] Care Team Providers Care Rating Examiner Name Role Phone Sandra, Layo Almaguer MD Primary Care Provider [phone] Reason for Visit * Reason Comments Outpatient Testing Encounter Details Date Type Department Care Team (Latest Contact Info) Description 08/11/2024 8:30 AM EST Laboratory Laboratory, [facility] [address] [place] [address] [facility] [address] [place] [address] Gastroesophageal reflux disease without esophagitis; Other vitamin B12 deficiency anemias Allergies Active Allergy Reactions Criticality Noted Date Comments Trevon Inhibitors 09/06/2002 Swelling in face Sulfamethoxazole-Trimeth oprim Rash 12/09/2016 Food (See Comments) 11/29/2001 Nuts: lip/throat swelling Cephalexin Other (Please comment) 12/14/2021 thrush Levofloxacin 11/03/2017 Rash on day 7 of abx Spironolactone Tachycardia 11/18/2011 Heart racing documented as of this encounter (statuses as of 08/11/2024) Medications fluticasone (FLONASE) 50 MCG/ACT nasal sprayIndications: PND (post-nasal drip) 2 spray in each nostril daily 16 g 2 05/06/20 20 Active Additional Information Patient taking differently: 2 [place] Nasal Daily(AM), 2 spray in each nostril daily,Indications: as needed, Reported on 08/11/2024 Ipratropium-Albut cuco 20-100 MCG/ACT Inhalation Aerosol Solution Inhale by mouth. 0 15 Active Cyclobenzaprine HCl 5 MG Oral Tablet (Flexeril) TAKE 1 TABLET BY MOUTH AT BEDTIME NEEDED 15 Tablet 11/15/19 22 Active Atenolol 50 MG Oral Tablet (Tenormin) TAKE 1 TABLET BY MOUTH EVERY DAY 90 Tablet 3 08/31/20 23 Active Additional Information Patient taking differently: 50 mg Oral HS, Reported on 08/11/2024 Erythromycin 2 % External Solution APPLY TO [...] differently: 10 mg Oral HS, Reported on 08/11/2024 Triamcinolone Acetonide 0.1 % External Cream (Aristocort)Indic ations:Seborrheic keratosis Apply 2x daily to irritated lesions on body intermittently when needed 80 g 05/11/20 24 Active Clopidogrel Bisulfate 75 MG Oral Tablet (pLAVix)Indicatio ns:NASCAR RACER demyelination (HCC) TAKE 1 TABLET BY MOUTH EVERY DAY 90 Tablet 2 06/20/20 24 Active Pantoprazole Sodium 40 MG Oral Tablet Delayed Release (Protonix)Indicat ions:Gastroesopha geal reflux disease without esophagitis,Other vitamin B12 deficiency anemias Take 1 Tablet by mouth in the morning. 90 Tablet 08/11/20 24 Active Polyethylene Glycol 3350 17 GM/SCOOP Oral Powder (MiraLax)Indicati ons:Constipation, unspecified constipation type,Gastroesopha geal reflux disease without esophagitis Take 17 g by mouth in the morning. One cap full in juice, to effect 1 stool per day. .. 510 g 11 08/11/20 24 Active Psyllium 58.6 % Oral Packet (Metamucil)Indica tions:Constipatio n, unspecified constipation type,Gastroesopha geal reflux disease without esophagitis Take 1 Packet by mouth in the morning. 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 Gastroesophageal reflux disease with esophagitis 02/23/2019 Family history of colon cancer 07/12/2009 Cerebrovascular disease, arteriosclerotic, post- stroke 01/15/2009 Overview (01/17/2009): Modified per CVA protocol #8 Tobacco use disorder 02/03/2001 HTN, goal below 140/90 08/19/2000 documented as of this encounter (statuses as of 08/11/2024) Resolved Problems Problem Noted Date Diagnosed Date Resolved Date NASCAR RACER demyelination 01/11/2023 01/04/2024 Prediabetes 11/14/2018 04/16/2022 Overview: Per Prediabetes protocol #1 Perforation of duodenum 07/10/201510/06 PURE HYPERCHOLESTEROLEM 04/24/200512/2008 CVA 02/03/2001 01/17/2009 Overview (01/17/2009): Modified per CVA protocol #8 NASCAR RACER demyelination 08/19/2000 02/18/2021 Headache 11/06/2008 Overview (12/25/2015): ICD-10 update of inactive term LUMBAGO 11/06/2008 GENERAL OSTEOARTHROSIS 07/12 Sequela, post-stroke 009 Peanut allergy 02/23/2019 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 documented as of this encounter (statuses as of 08/11/2024) Immunizations Name Administration Dates Next Due COVID-19 [...] No 07/05/2024 Does the household have a [facility] source of income? (Household - for ages [...] Author No 07/10/2015 12:03 AM EDT Mary Carrasquilol RN documented as of this encounter Mental Status * Because of a physical, mental, or emotional condition, do you have serious difficulty concentrating, remembering, or making decisions? (5 years old or older) Answer Entry Date Author No 07/10/2015 12:03 AM EDT Mary Carrasquillo RN documented in this encounter Plan of Treatment Upcoming Encounters Date Type Department Care Team (Late st Contact Info) Description 09/07/2024 1:30 PM EST Office Visit Interventional Pain Center, [facility] [address] [place] [phone] Josey Jacob PA-C [address] [facility] [place] [address] 11/21/2024 8:30 AM EST Office Visit Gastroenterology, [facility] [address] [place] [phone] Maria Fernanda Maciel CRNP [facility] [place] [address] 01/03/2025 8:20 AM EDT Office Visit Family [facility] [address] [place] [address] FebruaryLayo MD [address] [place] [address] 05/22/2025 10:20 AM EDT Office Visit Dermatology, [place] [address] [facility] [place] [address] Filomena Moncada PA-C [address] [place] [address] [place] [address] Pending Results Name Type Priority Associated Diagnoses Date /Time MAGNESIUM Lab Routine Gastroesophageal reflux disease without esophagitis Other vitamin B12 deficiency anemias 08/11/2024 8:08 AM EST VITAMIN B12 Lab Routine Gastroesophageal reflux disease without esophagitis Other vitamin B12 deficiency anemias 08/11/2024 8:08 AM EST Scheduled Procedures Name Priority Associated Diagnoses Date/Ti [...] Declined After Education) DXA Scan 01/18/2025 01/18/2018 Depression Screening 07/05/2025 [...] as of this encounter Visit Diagnoses Diagnosis Gastroesophageal reflux disease without esophagitis Esophageal reflux Other vitamin B12 deficiency anemias documented in this encounter Advance Directives * Full Code (Latest Code Status on File) Date Activated Date Inactivated Comments 07/09/2015 11:15 PM 07/23/2015 2:52 PM Question Answer Comments Discussion of Advance Directives occurred with: Not Discussed Does the patient have a Living Will? No Does the patient have Health Care Power of Attor mariusz? No Care Teams Rating Examiner Relationship Specialty Start Date End Date February, Layo Almaguer MD [address] [place] [address] PCP - General Family Medicine 06/09/23 documented as of this encounter
--- OUTSIDE RECORDS SUMMARY | 2024-10-14 04:28 | External Medical Summary ---
Author Name Unknown Address Unknown Organization [id number]:LABORATORY [facility] [place] - [address] [place] [address] Laboratory Report Ordering Provider Test Date Status MELISSA MCGHEE 08/11/2024 08:08:36 Final Observation Date Value Abnormality Reference (Units ) Status Vitamin B12 08/11/2024 08:08:36 059 350-4731 (pg/mL) Final Performing Location LAB[facility]ATORY [facility] - [address] [place] [address]
--- OUTSIDE RECORDS SUMMARY | 2024-10-14 04:28 | External Medical Summary | Summary of Care ---
Author Name Unknown Organization [facility] Address [address] [place] [address] Phone [phone] Care Team Providers Care Overnight Caregiver Name Role Phone May, Layo Almaguer MD Primary Care Provider [phone] Reason for Visit * Reason Comments Outpatient Testing Encounter Details Date Type Department Care Team (Late st Contact Info) Description 07/25/2024 8:00 AM EDT Laboratory Laboratory, [place] [address] [place] [address] [place], Laboratory [address] [place] [address] HTN, goal below 140/90; Cerebrovascular [...] Active Additional Information Patient taking differently: 2 [place] Nasal Daily(AM), 2 spray in each nostril [...] Clopidogrel Bisulfate 75 MG Oral Tablet (pLAVix)Indications :PHYSICIAN PRESIDENT demyelination (HCC) TAKE 1 TABLET BY MOUTH EVERY DAY 90 Tablet 2 06/20/2024 Active Famotidine 40 MG Oral Tablet (Pepcid)Indications :as needed Take 1 Tablet by mouth in the morning. 90 Tablet 3 07/05/2024 Active documented as of this encounter (statuses as of 07/25/2024) Active Problems Problem Noted Date Diagnosed Date PHYSICIAN PRESIDENT demyelination 07/05/2024 Gastroesophageal reflux disease with esophagitis 02/23/2019 Family history of colon cancer 07/12/2009 Cerebrovascular disease, arteriosclerotic, post- stroke 01/15/2009 Overview: Modified per CVA protocol #8 Tobacco use disorder 02/03/2001 HTN, goal below 140/90 08/19/2000 documented as of this encounter (statuses as of 07/25/2024) Resolved Problems Problem Noted Date Diagnosed Date Resolved Date PHYSICIAN PRESIDENT demyelination 01/11/2023 01/04/2024 Prediabetes 11/14/2018 04/16/2022 Overview: Per Prediabetes protocol #1 Perforation of duodenum 07/10/201510/06 PURE HYPERCHOLESTEROLEM 04/24/2005 0212/2008 CVA 02/03/2001 01/17/2009 Overview: Modified per CVA protocol #8 PHYSICIAN PRESIDENT demyelination 08/19/2000 02/18/2021 Headache 11/06/2008 Overview: ICD-10 [...] [facility] [address] [place] [address] Maria Fernanda Maciel CRNP [address] [place] [address] 09/07/2024 1:30 PM EST Office Visit Interventional Pain Center, [facility] [address] [place] [phone] Josey Jacob PA-C [address] [place] [address] 01/03/2025 8:20 AM EDT Office Visit [place] [address] [facility] [phone] FebruaryLayo MD [address] [facility] [address] 05/22/2025 10:20 AM EDT Office Visit Dermatology, [place] [address] [facility] [address] Fliomena Moncada PA-C [address] [place] [address] [place] [address] Pending Results Name Type Priority Associated Diagnoses [...] Power of Attor mariusz? No Care Teams Overnight Caregiver Relationship Specialty Start Date End Date February, Layo Almaguer MD [address] [place] [address] PCP - General Family Medicine 06/09/23 documented as of this encounter
--- OUTSIDE RECORDS SUMMARY | 2024-10-14 04:28 | External Medical Summary ---
Author Name Unknown Address Unknown Organization [id number][place] [place] [address] [facility] [place] [address] Laboratory Report Ordering Provider Test Date Status 07/25/2024 08:17:38 Final Observation Date Value Abnormality Reference (Units ) Status Triglyceride 07/25/2024 08:17:38 251 Above high normal <=174 (mg/dL) Final Triglyceride Reference Range s (mg/dL):
<150 Acceptable
150-174 Borderline high
175-499 High
>=500 Very high Cholesterol 07/25/2024 08:17:38 209 Above high normal <200 (mg/dL) Final Total Cholesterol Reference Ranges (mg/dL):
<200 Desirable
200-239 Borderline high
>=240 High HDL 07/25/2024 08:17:38 45 Below low normal >49 (mg/dL) Final HDL Cholesterol Reference Ra nges (mg/dL):
>=60 High (Desirable)
<50 Low (Undesirable) For Females
<40 Low (Undesirable) For Males NON-HDL CHOLESTEROL 07/25/2024 08:17:38 164 Above high normal <=159 (mg/dL) Final Non-HDL Cholesterol Referenc e Range (mg/dL):
<100 Target level for high risk ASCVD patient
<130 Optimal for general population
130-159 Near optimal for general population
160-189 Borderline High
190-219 High
>=220 Very High LDL, (calculated) 07/25/2024 08:17:38 114 <= 129 (mg/dL) Final LDL Cholesterol Reference Ra nges (mg/dL):
<70 Target level for high risk ASCVD patient
<100 Optimal for general population
100-129 Near optimal for general population
130-159 Borderline high
160-189 High
>=190 Very high Performing Location [facility] [place] [address] [facility] [address]
--- OUTSIDE RECORDS SUMMARY | 2024-10-14 04:28 | External Medical Summary ---
Author Name Unknown Address Unknown Organization [id number]:LABORATORY [facility] [place] - [address] [facility] [place] [address] Laboratory Report Ordering Provider Test Date Status 07/25/2024 08:17:38 Final Observation Date Value Abnormality Reference (Units ) Status SYNC LEUKOCYTES IN BLOOD BY AUTOMATED COUNT 07/25/2024 08:17:38 8.92 4.00-10.80 (K/uL) Final Segs 07/25/2024 08:17:38 54.9 40.0-75.0 (%) Final Lymphs % 07/25/2024 08:17:38 30.8 18.0-42.0 (%) Final Monos 07/25/2024 08:17:38 11.2 Above high normal 1.0-11.0 (%) Final Eosinophils 07/25/2024 08:17:38 1.8 0.0-6.0 (%) Final Basos 07/25/2024 08:17:38 0.9 0.0-2.0 (%) Final Immature Granulocyte, Percent 07/25/2024 08:17:38 0.4 0.0-2.0 (%) Final Absolute Segs 07/25/2024 08:17:38 4.89 1.80-7.70 (K/uL) Final Lymphs, absolute 07/25/2024 08:17:38 2.75 1.00-4.80 (K/ul) Final Monos, Abs 07/25/2024 08:17:38 1.00 0.00-1.10 (K/uL) Final Eos, Abs 07/25/2024 08:17:38 0.16 0.00-0.70 (K/uL) Final Basos, Abs 07/25/2024 08:17:38 0.08 0.00-0.20 (K/uL) Final Immature Granulocytes, Number 07/25/2024 08:17:38 0.04 0.00-0.20 (K/uL) Final Performing Location LABORATORY [facility] [place] - [address] [facility] [address]
--- OUTSIDE RECORDS SUMMARY | 2024-10-14 04:28 | External Medical Summary | Summary of Care ---
Author Name Unknown Organization [facility] Address [address] [place] [address] Phone [phone] Care Team Providers Care Lion Hunter Name Role Phone May, Layo Almaguer MD Primary Care Provider [phone] Reason for Visit * Reason Comments Outpatient Testing Encounter Details Date Type Department Care Team (Late st Contact Info) Description 07/25/2024 8:00 AM EDT Laboratory Laboratory, [place] [address] [place] [address] [place], Laboratory [address] [place] [address] HTN, goal below 140/90; Cerebrovascular [...] Active Additional Information Patient taking differently: 2 [place] Nasal Daily(AM), 2 spray in each nostril [...] Clopidogrel Bisulfate 75 MG Oral Tablet (pLAVix)Indications :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 90 Tablet 3 07/05/2024 Active documented as of this encounter (statuses as of 07/25/2024) Active Problems Problem Noted Date Diagnosed Date METAL NUMERICAL CONTROL PROGRAMMER demyelination 07/05/2024 Gastroesophageal reflux disease with esophagitis 02/23/2019 Family history of colon cancer 07/12/2009 Cerebrovascular disease, arteriosclerotic, post- stroke 01/15/2009 Overview: Modified per CVA protocol #8 Tobacco use disorder 02/03/2001 HTN, goal below 140/90 08/19/2000 documented as of this encounter (statuses as of 07/25/2024) Resolved Problems Problem Noted Date Diagnosed Date Resolved Date METAL NUMERICAL CONTROL PROGRAMMER demyelination 01/11/2023 01/04/2024 Prediabetes 11/14/2018 04/16/2022 Overview: Per Prediabetes protocol #1 Perforation of duodenum 07/10/201510/06 PURE HYPERCHOLESTEROLEM 04/24/2005 0212/2008 CVA 02/03/2001 01/17/2009 Overview: Modified per CVA protocol #8 METAL NUMERICAL CONTROL PROGRAMMER demyelination 08/19/2000 02/18/2021 Headache 11/06/2008 Overview: ICD-10 [...] 08/11/2024 7:30 AM EST Office Visit Gastroenterology, [facility] [address] [place] [address] Maria Fernanda Maciel CRNP [address] [place] [address] 09/07/2024 1:30 PM EST Office Visit Interventional Pain Center, [facility] [address] [place] [address] Josey Jacob PA-C [address] [place] [address] 01/03/2025 8:20 AM EDT Office [facility] [place] [address] [facility] [phone] FebruaryLayo MD [address] [facility] [address] 05/22/2025 10:20 AM EDT Office Visit [facility], [place] [address] [facility] [address] Filomena Moncada PA-C [address] [place] [address] [place] [address] Pending Results Name Type Priority Associated Diagnoses [...] Power of Attor mariusz? No Care Teams Lion Hunter Relationship Specialty Start Date End Date February, Layo Almaguer MD [address] [place] [address] PCP - General Family Medicine 06/09/23 documented as of this encounter
--- OUTSIDE RECORDS SUMMARY | 2024-10-14 04:28 | External Medical Summary ---
Author Name Unknown Address Unknown Organization K01:LABORATORY [facility] - [address] [place] [address] Laboratory Report Ordering Provider Test Date Status MELISSA MCGHEE 08/11/2024 08:08:36 Final Observation Date Value Abnormality Reference (Units ) Status Magnesium 08/11/2024 08:08:36 2.2 1.5-2.6 (m g/dL) Final Performing Location LAB[facility] - [address] [place] [address]
--- OUTSIDE RECORDS SUMMARY | 2024-10-14 04:28 | External Medical Summary | Summary of Care ---
Author Name Unknown Organization [facility] Address [address] [place] [address] Phone [phone] Care Team Providers Care Hand Model Name Role Phone May, Layo Almaguer MD Primary Care Provider [phone] Reason for Visit * Reason Comments Outpatient Testing Encounter Details Date Type Department Care Team (Late st Contact Info) Description 07/25/2024 8:00 AM EDT Laboratory Laboratory, [place] [address] [place] [address] [place], Laboratory [address] [place] [address] HTN, goal below 140/90; Cerebrovascular [...] Active Additional Information Patient taking differently: 2 [place] Nasal Daily(AM), 2 spray in each nostril [...] Clopidogrel Bisulfate 75 MG Oral Tablet (pLAVix)Indications :STILL OPERATOR HELPER demyelination (HCC) TAKE 1 TABLET BY MOUTH EVERY DAY 90 Tablet 2 06/20/2024 Active Famotidine 40 MG Oral Tablet (Pepcid)Indications :as needed Take 1 Tablet by mouth in the morning. 90 Tablet 3 07/05/2024 Active documented as of this encounter (statuses as of 07/25/2024) Active Problems Problem Noted Date Diagnosed Date STILL OPERATOR HELPER demyelination 07/05/2024 Gastroesophageal reflux disease with esophagitis 02/23/2019 Family history of colon cancer 07/12/2009 Cerebrovascular disease, arteriosclerotic, post- stroke 01/15/2009 Overview: Modified per CVA protocol #8 Tobacco use disorder 02/03/2001 HTN, goal below 140/90 08/19/2000 documented as of this encounter (statuses as of 07/25/2024) Resolved Problems Problem Noted Date Diagnosed Date Resolved Date STILL OPERATOR HELPER demyelination 01/11/2023 01/04/2024 Prediabetes 11/14/2018 04/16/2022 Overview: Per Prediabetes protocol #1 Perforation of duodenum 07/10/201510/06 PURE HYPERCHOLESTEROLEM 04/24/2005 0212/2008 CVA 02/03/2001 01/17/2009 Overview: Modified per CVA protocol #8 STILL OPERATOR HELPER demyelination 08/19/2000 02/18/2021 Headache 11/06/2008 Overview: ICD-10 [...] 7:30 AM EST Office Visit Gastroenterology, [facility] [address] [place] [address] Maria Fernanda Maciel CRNP [address] [place] [address] 09/07/2024 1:30 PM EST Office Visit Interventional Pain Center, [facility] [address] [place] [address] Josey Jacob PA-C [address] [place] [address] 01/03/2025 8:20 AM EDT Office Visit [facility] [place] [address] [address] [facility] [phone] FebruaryLayo MD [address] [facility] [address] 05/22/2025 10:20 AM EDT Office Visit [facility], [place] [address] [facility] [address] Filomena Moncada PA-C [address] [place] [address] [place] [address] Pending Results Name Type Priority Associated Diagnoses [...] Power of Attor mariusz? No Care Teams Hand Model Relationship Specialty Start Date End Date February, Layo Almaguer MD [address] [place] [address] PCP - General Family Medicine 06/09/23 documented as of this encounter
--- OUTSIDE RECORDS SUMMARY | 2024-10-14 04:28 | External Medical Summary | Summary of Care ---
Author Name Unknown Organization [facility] Address [address] [place] [address] Phone [phone] Care Team Providers Care Cadet Deck Name Role Phone Sandra Layo Almaguer MD Primary Care Provider [phone] Encounter Details Date Type Department Care Team (Latest Contact Info) Description 07/10/2024 8:13 AM EDT - 07/10/2024 11:59 PM EDT Hospital Encounter Radiology, [address] [phone] Arrived Discharge Disposition: Home - Self Care Allergies Active Allergy Reactions Criticality Noted Date Comments Trevon Inhibitors 09/06/2002 Swelling in face Sulfamethoxazole-Trimeth oprim Rash 12/09/2016 Food (See Comments) 11/29/2001 Nuts: lip/throat swelling Cephalexin Other (Please comment) 12/14/2021 thrush Levofloxacin 11/03/2017 Rash on day 7 of abx Spironolactone Tachycardia 11/18/2011 Heart racing documented as of this encounter (statuses as of 07/11/2024) Medications Medication Sig Dispensed Refills Start Date End Date Status fluticasone (FLONASE) 50 MCG/ACT nasal sprayIndications:PN D (post-nasal drip) 2 spray in each nostril daily 16 g 2 05/06/2020 Active Additional Information Patient taking differently: 2 [place] Nasal Daily(AM), 2 spray in each nostril [...] Clopidogrel Bisulfate 75 MG Oral Tablet (pLAVix)Indications :FEATURES EDITOR demyelination (HCC) TAKE 1 TABLET BY MOUTH EVERY DAY 90 Tablet 2 06/20/2024 Active Famotidine 40 MG Oral Tablet (Pepcid)Indications :as needed Take 1 Tablet by mouth in the morning. 90 Tablet 3 07/05/2024 Active documented as of this encounter (statuses as of 07/11/2024) Active Problems Problem Noted Date Diagnosed Date FEATURES EDITOR demyelination 07/05/2024 Gastroesophageal reflux disease with esophagitis 02/23/2019 Family history of colon cancer 07/12/2009 Cerebrovascular disease, arteriosclerotic, post- stroke 01/15/2009 Overview: Modified per CVA protocol #8 Tobacco use disorder 02/03/2001 HTN, goal below 140/90 08/19/2000 documented as of this encounter (statuses as of 07/11/2024) Resolved Problems Problem Noted Date Diagnosed Date Resolved Date FEATURES EDITOR demyelination 01/11/2023 01/04/2024 Prediabetes 11/14/2018 04/16/2022 Overview: Per Prediabetes protocol #1 Perforation of duodenum 07/10/201510/06 PURE HYPERCHOLESTEROLEM 04/24/200512/2008 CVA 02/03/2001 01/17/2009 Overview: Modified per CVA protocol #8 FEATURES EDITOR demyelination 08/19/2000 02/18/2021 Headache 11/06/2008 Overview: ICD-10 update of inactive term LUMBAGO 11/06/2008 GENERAL OSTEOARTHROSIS 07/12 Sequela, post-stroke 009 Peanut allergy 02/23/2019 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 documented as of this encounter (statuses as of 07/11/2024) Immunizations Name Administration Dates Next Due COVID-19 [...] PM EST Office Visit Interventional Pain Center, [facility] [address] [place] [address] Josey Jacob PA-C [address] [place] [address] 01/03/2025 8:20 AM EDT [facility] [place] [address] [facility] [phone] FebruaryLayo MD [address] [facility] [address] 05/22/2025 10:20 AM EDT Office Visit [facility], [place] [address] [facility] [address] Filomena Moncada PA-C [address] [place] [address] [place] [address] Scheduled Procedures Name Priority Associated Diagnoses Date/Ti [...] Not on filedocumented as of this encounter Procedures Procedure Name Priority Date/Time Associated Diagnosis Comments FLUORO UGI WITH SMALL BOWEL DOUBLE CONTRAST Routine 07/10/2024 10:43 AM EDT Epigastric abdominal pain documented in this encounter Administered Medications Inactive Administered Medications - up to 3 most recent administrations Medication Order MAR Action Action Date Dose Rate Site barium sulfate 60% (Ez Paque) oral susp 355 mL 355 mL, Oral, ONCE, On Wed07/10/24 at 1051, For 1 dose, Radiology Medication Routing (Non-IR) Given 07/10/2024 10:51 AM EDT 355 mL barium sulfate 98% (E-Z HD) oral susp 165 mL 165 mL, Oral, ONCE, On Wed07/10/24 at 1051, For 1 dose, Radiology Medication Routing (Non-IR) Given 07/10/2024 10:51 AM EDT 165 mL Sod bicarb-citric ac-simeth (E-Z-Gas) oral granules 1 Packet 1 Packet, Oral, ONCE, On Wed07/10/24 at 1051, For 1 dose, Radiology Medication Routing (Non-IR) Given 07/10/2024 10:51 AM EDT 1 Packet documented in this encounter Advance Directives * Full Code (Latest Code Status on File) Date Activated Date Inactivated Comments 07/09/2015 11:15 PM 07/23/2015 2:52 PM Question Answer Comments Discussion of Advance Directives occurred with: Not Discussed Does the patient have a Living Will? No Does the patient have Health Care Power of Attor mariusz? No Care Teams Cadet Deck Relationship Specialty Start Date End Date February, Layo Almaguer MD [address] [facility] [place] [address] PCP - General Family Medicine 06/09/23 documented as of this encounter
--- OUTSIDE RECORDS SUMMARY | 2024-10-14 04:28 | External Medical Summary ---
Author Name Unknown Address Unknown Organization [id number]:[facility] - [address] [place] [address] Laboratory Report Ordering Provider Test Date Status 07/25/2024 08:17:38 Final Observation Date Value Abnormality Reference (Units ) Status HbA1C 07/25/2024 08:17:38 5.7 Above high normal 4. 0-5.6 (%) Final The use of HbA1c to monitor glycemic status is based on normal hemoglobin and HbA composition. This test should not be used in patients with abnormal hemoglobin that affects the half life of the red blood cell or the in vivo glycation rates. Glucose, estimated average 07/25/2024 08:17:38 117 <126 (mg/dL) Final Performing Location [facility] - [address] [place] [address]
--- OUTSIDE RECORDS SUMMARY | 2024-10-14 04:28 | External Medical Summary | Summary of Care ---
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 Name Role Phone Layo Flores MD Primary Care Provider [phone] Reason for Referral * Precert (Within 10 days (routine)) - Authorized Specialty Diagnoses / Procedures Referred By Contac t Referred To Contact Pain Medicine Diagnoses Cervical myofascial pain syndrome Procedures TRIGGER POINT INJECTION(S), 1-2 MUSCLES Josey Jacob PA-C [address] [place] [address] Phone: tel: fax: Referral ID Status Reason Start Date Expiration Date V isits Requested Visits Authorized [id number] Authorized 11/16/2024 999 999 Reason for Visit * Reason Comments Neck Pain * Precert (Within 30 days (routine)) - Authorized Specialty Diagnoses / Procedures Referred By Contdavid t Referred To Contact Diagnoses Myalgia, other site Procedures CO 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 TRIGGER POINT 1/2 MUSCLES Layo Flores MD [address] [place] [address] Phone: tel: fax: Josey Jacob PA-C [address] [place] [address] Phone: tel: fax: Referral ID Status Reason Start Date Expiration Date V isits Requested Visits Authorized [id number] Authorized Precert 07/13/2024 [id number] Encounter Details Date Type Department Care Team (Late st Contact Info) Description 09/07/2024 1:30 PM EST Office Visit Interventional Pain Center, [facility] [address] [place] [address] Josey Jacob PA-C [address] [place] [address] Cervical myofascial pain syndrome* Allergies Active Allergy Reactions Criticality Noted Date Comments Trevon Inhibitors 09/06/2002 Swelling in face Sulfamethoxazole-Trimeth oprim Rash 12/09/2016 Food (See Comments) 11/29/2001 Nuts: lip/throat swelling Cephalexin Other (Please comment) 12/14/2021 thrush Levofloxacin 11/03/2017 Rash on day 7 of abx Spironolactone Tachycardia 11/18/2011 Heart racing documented as of this encounter (statuses as of 09/07/2024) Medications fluticasone (FLONASE) 50 MCG/ACT nasal sprayIndications: PND (post-nasal drip) 2 spray in each nostril daily 16 g 2 05/06/20 20 Active Additional Information Patient taking differently: 2 [place] Nasal Daily(AM), 2 spray in each nostril [...] differently: 50 mg Oral HS, Reported on 09/07/2024 Erythromycin 2 % External Solution APPLY TO [...] Clopidogrel Bisulfate 75 MG Oral Tablet (pLAVix)Indicatio ns:CENTERPUNCHER demyelination (HCC) TAKE 1 TABLET BY MOUTH [...] Active Problems Problem Noted Date Diagnosed Date 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 Gastroesophageal reflux disease with esophagitis 02/23/2019 Family history of colon cancer 07/12/2009 Cerebrovascular disease, arteriosclerotic, post- stroke 01/15/2009 Overview (01/17/2009): Modified per CVA protocol #8 Tobacco use disorder 02/03/2001 HTN, goal below 140/90 08/19/2000 documented as of this encounter (statuses as of 09/07/2024) Resolved Problems Problem Noted Date Diagnosed Date Resolved Date CENTERPUNCHER demyelination 01/11/2023 01/04/2024 Prediabetes 11/14/2018 04/16/2022 Overview: Per Prediabetes protocol #1 Perforation of duodenum 07/10/201510/06 PURE HYPERCHOLESTEROLEM 04/24/2005 0212/2008 CVA 02/03/2001 01/17/2009 Overview (01/17/2009): Modified per CVA protocol #8 CENTERPUNCHER demyelination 08/19/2000 02/18/2021 Headache 11/06/2008 Overview (12/25/2015): [...] 07/10/2015 12:03 AM Mary Bingham RN * Are you blind or do you have serious difficulty seeing, even when wearing glasses? Answer Date of Assessment Author No 07/10/2015 12:03 AM Mary Bingham RN * Do you have serious difficulty walking or climbing stairs? (5 years old or older) Answer Date of Assessment Author No 07/10/2015 12:03 AM Mary Bingham RN * Do you have difficulty dressing [...] Mary Bingham RN documented in this encounter Progress Notes * Josey Jacob PA-C - 09/07/2024 1:25 PM EST Procedure:Trigger Point Injection(s)-Local Anesthetic CPT #36888 Indication(s): Myofascial Pain of R cervical spine region Co-morbid conditions: Reviewed. No prior adverse reaction to anesthetic. Airway is normal. Neck has mildly decreased passive ROM. Discussed alternative plans, benefits and potential risks which include, but not limited to bleeding, infections, nerve damage, pneumothorax or failure of the procedure. She agreed to proceed with this procedure. Informed consent was obtained. Time out was done, (Tim ACUNA present) which included identity of patient, type of procedure, site(s.) Five trigger points over R cervical spine region involving cervical paraspinals, trapezius muscle groups with total of 5 mL 1% lidocaine using 27 gauge needle afteralcohol prep. Following injection, needles were removed, site(s) cleaned and dried. Patient observed for ten minutes. Tolerated procedure well. Will avoid heat for 24 hours, can applyice. Complication(s): none Follow Up: Has done well with TPIs in the past, providing greater than 75% pain relief. Tentativelyschedule repeat procedure in 10-12 weeks. Josey Jacob PA-C 09/07/24 documented in this encounter Nursing Notes * Maria Fernanda Dumont LPN - 09/07/2024 1:22 PM EST Patient here for right cervical spine tpi's documented in this encounter Plan of Treatment Upcoming Encounters Date Type Department Care Team (Late st Contact Info) Description 11/16/2024 1:30 PM EST Office Visit Interventional Pain Center, [facility] [address] [facility] [place] [address] Josey Jacob PA-C [address] [facility] [place] [address] 11/21/2024 8:30 AM EST Office Visit Gastroenterology, [facility] [address] [facility] [place] [address] Maria Fernanda Maciel CRNP [address] [place] [address] 01/03/2025 8:20 AM EDT Office Visit Family Practice, [place] [address] [phone] FebruaryLayo MD [address] [address] 05/22/2025 10:20 AM EDT Office Visit Dermatology, [place] [address] [phone] Filomena Moncada PA-C [address] [place] [address] [place] [address] Scheduled Orders Name Type Priority Associated Diagnoses Orde r Schedule TRIGGER POINT INJECTION(S), 1-2 MUSCLES Procedures Routine Cervical myofascial pain syndrome Expected: 11/16/2024, Expires: 10/08/2025 Scheduled Procedures Name Priority Associated Diagnoses Date/Ti [...] as of this encounter Visit Diagnoses Diagnosis Cervical myofascial pain syndrome- Primary Mylagia and myositis, unspecified documented in this encounter Advance Directives * Full Code (Latest Code Status on File) Date Activated Date Inactivated Comments 07/09/2015 11:15 PM 07/23/2015 2:52 PM Question Answer Comments Discussion of Advance Directives occurred with: Not Discussed Does the patient have a Living Will? No Does the patient have Health Care Power of Attor mariusz? No Care Teams Die Stamping Press Operator Relationship Specialty Start Date End Date February, Layo Almaguer MD [address] [place] [address] PCP - General Family Medicine 06/09/23 documented as of this encounter
--- OUTSIDE RECORDS SUMMARY | 2024-10-14 04:28 | External Medical Summary | Summary of Care ---
Author Name Unknown Organization [facility] Address [address] [place] [address] Phone [phone] Care Team Providers Care Motor Teacher Name Role Phone Layo Flores MD Primary Care Provider [phone] Reason for Visit * Reason Comments NEW PATIENT New pt ref by Dr Flores for diarrhea. Pt states she does not have chronic diarrhea. Recently on abx for her tooth that caused some stomach upset. Pt states she had upper GI/SBFT about [address] scan over a month ago showed colitis. [place] 04/26. * Evaluate & Treat - Unlimited Visits (Within 10 days (routine)) - Authorized Specialty Diagnoses / Procedures Referred By Carol Ann aguilar Referred To Contact Gastroenterology Diagnoses Traveler's diarrhea Abnormal colonoscopy February, Layo Almaguer MD [address] [place] [address] Phone: tel: fax: Referral ID Status Reason Start Date Expiration Date Visits Requested Visits Authorized [id number] Authorized Specialty Services Required 06/19/[phone] Encounter Details Date Type Department Care Team (Late st Contact Info) Description 08/11/2024 7:30 AM EST Office Visit Gastroenterology, [facility] [address] [place] [address] Maria Fernanda Maciel CRNP [address] [place] [address] Constipation, unspecified constipation type*; Gastroesophageal reflux disease without esophagitis; Other vitamin [...] 08/11/2024) Medications fluticasone (FLONASE) 50 MCG/ACT nasal sprayIndications :PND (post-nasal drip) 2 spray in each nostril daily 16 g 2 05/06/20 20 Active Additional Information Patient taking differently: 2 [place] Nasal Daily(AM), 2 spray in each nostril daily,Indications: as needed, Reported on 08/11/2024 Ipratropium-Albu terol 20-100 MCG/ACT Inhalation Aerosol Solution [...] 08/11/2024 Triamcinolone Acetonide 0.1 % External Cream (Aristocort)Marsha cations:Seborrhe ic keratosis Apply 2x daily to irritated lesions on body intermittently when needed 80 g 05/11/20 24 Active Clopidogrel Bisulfate 75 MG Oral Tablet (pLAVix)Indicati ons:SAGGER SOAK demyelination (HCC) TAKE 1 TABLET BY MOUTH [...] 24 Active Psyllium 58.6 % Oral Packet (Metamucil)Indic ations:Constipat ion, unspecified constipation type,Gastroesoph ageal reflux disease without esophagitis Take 1 Packet by mouth in the morning. 90 Packet 3 08/11/20 24 Active Pantoprazole Sodium 40 MG Oral Tablet Delayed Release (Protonix) Take by mouth 1 Tablet in the morning. 90 Tablet 03/06/20 22 024 Discontin ued(Refil l) Famotidine 40 MG Oral Tablet (Pepcid)Indicati ons:as needed Take 1 Tablet by mouth in the morning. 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 Gastroesophageal reflux disease with esophagitis 02/23/2019 Family history of colon cancer 07/12/2009 Cerebrovascular disease, arteriosclerotic, post- stroke 01/15/2009 Overview (01/17/2009): Modified per CVA protocol #8 Tobacco use disorder 02/03/2001 HTN, goal below 140/90 08/19/2000 documented as of this encounter (statuses as of 08/11/2024) Resolved Problems Problem Noted Date Diagnosed Date Resolved Date SAGGER SOAK demyelination 01/11/2023 01/04/2024 Prediabetes 11/14/2018 04/16/2022 Overview: Per Prediabetes protocol #1 Perforation of duodenum 07/10/201510/06 PURE HYPERCHOLESTEROLEM 04/24/2005 02/0 12/2008 CVA 02/03/2001 01/17/2009 Overview (01/17/2009): Modified per CVA protocol #8 SAGGER SOAK demyelination 08/19/2000 02/18/2021 Headache 11/06/2008 Overview (12/25/2015): [...] AM EDT documented as of this encounter Last Filed Vital Signs Vital Sign Reading Time Taken Comments Blood Pressure 130/82 08/11/2024 7:23 AM EST Pulse - - Temperature 60 C (140 F) 08/11/2024 7:23 AM EST Respiratory Rate - - Oxygen Saturation - - Inhaled Oxygen Concentration - - Weight 74.4 kg (164 lb) 08/11/2024 7:23 AM EST Height - - Body Mass Index 29.05 07/05/2024 7:39 AM EDT documented in this encounter Functional Status * Are you [...] Entry Date Author No 07/10/2015 12:03 AM EDMary Coles RN documented in this encounter Patient Instructions * Patient Instructions* Maria Fernanda Maciel CRNP - 08/11/2024 7:40 AM EST -Restart pantoprazole 40 mg daily in the morning - first thing -Start metamucil or benefiber 2 tsp every morning -Okay to take 1 capful of miralax a few times a week to help move bowels. documented in this encounter Progress Notes * Maria Fernanda Maciel CRNP - 08/11/2024 7:30 AM EST Gastroenterology Outpatient Visit 08/11/2024 Referring physician:Layo Flores MD PCP: Layo Flores MD Past medical history: GERD Mild Schatzki's ring lower 3rd of the esophagus--dilation performed, per EGD 2014 History of duodenal perforation during upper GI, 2014 with laparoscopy with pyloric exclusion and gastrojejunostomy Sigmoid diverticulosis Hx of Cdiff in 2014 History of cholecystectomy, 1970s History of CVA, 2008--on Plavix CC: Diarrhea and abdominal pain HPI: Very pleasant 73-year-old female presents today to the gastroenterology office as a new patient after being referred by her PCP due to abdominal discomfort. Patient has always had concerns regarding her stomach since her surgery in 2014. Notes that she will occasionally get nauseated and some abdominal cramping depending on what she eats or medications that she takes. She had a colonoscopy performed April 22, 2024 which was generally unremarkable. She did have multiple small and large mouth diverticula in the sigmoid colon. Also incidental findings of a 1 cm bulge at the hepatic flexure, followed up CT imaging on 05/2024 revealing possible diarrheal illness with mild uncomplicated colitis of the transverse colon, small fat containing ventral hernia on the rightside of the epigastrium, old granulomatosis disease in the chest and abdomen. Following the colonoscopy she was having a lot of generalized stomach discomfort that radiated intoher back. Thought that this may be gas. Described as a cramping sensation. Relieved by having bowelmovements. Recently she was on an antibiotic for her tooth--this cause some upset stomach. Most of her symptoms resolved once stopping the antibiotic. She saw her PCP who ordered an upper GI with small-bowel follow-through for further evaluation as patient declined invasive procedures given her prior history of duodenal perforation during EGD in the past. Small-bowel imaging dated 07/10/2024-- "Mildly patulous gastroesophageal junction suggesting small hiatal hernia and minimal gastroesophageal reflux. Patient is status post partial gastrectomy. Mucosal folds within the stomach appear prominent as discussed. Patient is status post gastrojejunostomy.No demonstrable obstruction to flow of contrast material through the small bowel. Caliber of small bowel loops is prominent/increased." 08/11/2024: Today the patient presents feeling generally well. As stated above she notes mild stomach upset/nausea due to being on a recent antibiotic for her tooth. She does not take her pantoprazole or Pepcid routinely but does note improvement in symptoms when she does. She tries to have a bowel movement every day to other day but does sometimes have some constipation and straining but this has been typical for her since 2014 after her surgery No history of jaundice. No fever, chills, cough, hematochezia, melena, or hemoptysis. Medications tried for above complaint: Pantoprazole and Pepcid--helps symptoms. Previous GI workup: Colonoscopy: 04/24/2024--sigmoid diverticulosis. 1 cm bulge at the hepatic flexure that felt firm to probing, likely due to extrinsic compression. EGD: 07/2015 ([facility])--mild Schatzki's ring, dilated. Severe a Arriaza grade 3 reflux esophagitis, normal stomach and duodenum. No specimens collected. CTAP: 05/15/2024: Diarrheal illness with mild uncomplicated colitis of the transverse colon, small fat containing ventral hernia on the right side of the epigastrium, old granulomatosis disease in the chest and abdomen. Social history: Tobacco use: Half pack per day ETOH use: None Illicit drug use: None Works part-time in the [employer] department at [employer]. Family Hx: No known family history of inflammatory bowel disease or GI malignancy Current Outpatient Medications Medication Sig Dispense Refill fluticasone (FLONASE) 50 MCG/ACT nasal spray 2 spray in each nostril daily (Patient taking differently: Administer 2 Sprays into nostril in the morning. 2 spray in each nostril daily.) 16 g 2 Ipratropium-Albuterol 20-100 MCG/ACT Inhalation Aerosol Solution Inhale by mouth. Cyclobenzaprine HCl 5 MG Oral Tablet (Flexeril) TAKE 1 TABLET BY MOUTH AT BEDTIME NEEDED 15 Tablet 0 Atenolol 50 MG Oral Tablet (Tenormin) TAKE 1 TABLET BY MOUTH EVERY DAY (Patient taking differently:Take 1 Tablet by mouth at bedtime.) 90 Tablet 3 Erythromycin 2 % External Solution APPLY TO AFFECTED AREA OF FACE, 2X A DAY 60 mL 11 Montelukast Sodium 10 MG Oral Tablet (Singulair) TAKE 1 TABLET BY MOUTH EVERY DAY IN THE MORNING (Patient taking differently: Take 1 Tablet by mouth at bedtime.) 90 Tablet 3 Triamcinolone Acetonide 0.1 % External Cream (Aristocort) Apply 2x daily to irritated lesions on body intermittently when needed 80 g 0 Clopidogrel Bisulfate 75 MG Oral Tablet (pLAVix) TAKE 1 TABLET BY MOUTH EVERY DAY 90 Tablet 2 Pantoprazole Sodium 40 MG Oral Tablet Delayed Release (Protonix) Take 1 Tablet by mouth in the morning. 90 Tablet 0 Polyethylene Glycol 3350 17 GM/SCOOP Oral Powder (MiraLax) Take 17 g by mouth in the morning. One cap full in juice, to effect 1 stool per day. .. 510 g 11 Psyllium 58.6 % Oral Packet (Metamucil) Take 1 Packet by mouth in the morning. 90 Packet 3 Albuterol Sulfate HFA 108 (90 Base) MCG/ACT Inhalation Aerosol Solution TAKE 2 INHALATION DOSING UNIT BY MOUTH 4 TIMES A DAY NEEDED FOR SHORTNESS OF BREATH OR WHEEZING. 18 g 1 No current facility-administered medications for this visit. Past Medical History: Diagnosis Date CEREBROVASCULAR DZ, POST-STROKE 01/15/2009 Modified per CVA protocol #8 CVA 02/03/2001 Modified per CVA protocol #8 Fam Hx endo/metab dis t, chol : 201, HDL: 42 Family history of colon cancer 07/12/2009 Generalized osteoarthritis Headache(784.0) Headache NOS HTN, goal below 140/90 Impaired fasting glucose 11/06/2008 Lumbago Peanut allergy Perforation of duodenum (HCC) 07/10/2015 iatrogenic Sequela, post-stroke Tobacco use disorder Tree nut allergy Past Surgical History: Procedure Laterality Date COLONOSCOPY, DIAGNOSTIC (RECTUM) 04/24/2024 multiple small and large mouthed diverticula/1cm bulge at heaptic flexure/COLONOSCOPY FLEXIBLE PROXIMAL DIAGNOSTIC performed by Lizet Corrigan MD at ENDOSCOPY [facility] EGD, FLEXIBLE, DIAGNOSTIC 07/09/2015 Schatzki ring, reflux esophagitis/[facility] EXPLORATION OF ABDOMEN N/A 07/16/2015 EXPLORATORY LAPAROTOMY performed by Abbe Zhou MD [place] [facility] REMOVE GALLBLADDER REMOVE STOMACH, PARTIAL duodenal excl and gastrojej for iatrogenic duodenal perf TUBE JEJUNOSTOMY FOR FEEDING N/A 07/16/2015 NEEDLE CATHETER OR TUBE JEJUNOSTOMY FOR ALIMENTATION performed by Abbe Zhou MD at [place] [facility] Social History Tobacco Use Smoking status: Light Smoker Current packs/day: 0.50 Average packs/day: 0.5 packs/day for 38.0 years (19.0 ttl pk-yrs) Types: Cigarettes Smokeless tobacco: Never Tobacco comments: Smoking since age 20, < 1/2 pk per day Vaping Use Vaping status: Never Used Substance Use Topics Alcohol use: No Drug use: No Review of patient's allergies indicates: Allergen Reactions Trevon Inhibitors Swelling in face Bactrim [Sulfamethoxazole-Trimethoprim] Rash Food (See Comments) Nuts: lip/throat swelling Keflex [Cephalexin] Other (Please comment) thrush Levaquin [Levofloxacin] Rash on day 7 of abx Spironolactone Tachycardia Heart racing Review of Systems: See HPI for pertinent positives. All others negative, other than those noted in HPI. Physical Exam: BP 130/82 | Temp (!) 60 C (140 F) | Wt 74.4 kg (164 lb) | BMI 29.05 kg/m | BSA 1.82 m GENERAL: Well developed and well nourished in no acute distress. SKIN: No rashes, ulcers, jaundice or spider angiomata. HEENT: Normocephalic, sclera clear, pharynx normal. NECK: Supple, no lymphadenopathy, no masses or thyroid enlargement. LUNGS: Clear to auscultation bilaterally, no respiratory distress or accessory muscles used. HEART: Regular rate & rhythm, no murmurs and no gallops. ABDOMEN: Normal bowel sounds, soft and nontender, no masses or hepatosplenomegaly. EXTREMITIES: No palmar erythema, no ankle edema, no skin discoloration, no clubbing, no cyanosis. NEURO: No lateralizing findings. Sensory/Motor grossly normal. Lab data/imaging study review: Reviewed via chart Impression/Plan: This is a(n) 73 year old female who is being evaluated in the office for ongoing care/risk management for the below diagnoses. 1. Constipation, unspecified constipation type (Primary) Patient with occasional constipation. Discussed other medications to help with constipation including OTC stools softeners (colace), stimulants (senna vs dulcolax), Miralax, probiotics, IBgard, and fiber supplements (metamucil vs. Benefiber). Patient to start Metamucil or Benefiber 2 tsp daily. Can also add MiraLax 1 capful Wednesday or as needed. Increase oral hydration 60-80 oz water daily, encouraged daily movement/exercise, healthy dietary choices. 2. Gastroesophageal reflux disease without esophagitis Upper abdominal pain with upper GI series showing mild GERD. Recommend dietary and lifestyle modifications: Avoid dietary triggers. Typical triggers include: carbonated beverages, spicy foods, fatty or friedfoods, excess coffee, and peppermint. Encouraged weight loss. Patient should try elevating the head of the bed some, refrain from lying flat after meals and avoid meals 2-3 hours before bedtime. Recommend smoking cessation and avoidance of alcohol. Peppermint can also make reflux symptoms worse. These substances reduce lower esophageal sphincter pressure. Discontinue/avoid all NSAID use Not currently routinely taking PPI or H2 damien. Restart pantoprazole 40 mg daily in the morning. Will add on the B12 and magnesium level with next blood work. Future considerations of adding H2 damien Given prior history of duodenal perforation patient would like to avoid all invasive procedures if possible. The patient agrees to the above plan and will call with additional questions or concerns. ER with all emergencies advised. Follow Up: Return in about 3 months (around 11/11/2024). I spent a total of Greater than 55 mins (exact time 60 mins) on the date of service in preparation,delivery, and documentation of the care provided to Kimberlee Willams excluding any time spent in theperformance of separately billed services or time spent by another provider/QHP. DELANO Hernandez [facility] Gastroenterology, [facility] This chart was completed in part utilizing [employer] Speech Voice Recognition Software. Grammatical errors, random word insertions, prounoun errors, and incomplete sentences are an occasional consequence of this system due to software limitations, ambient noise, and hardware issues. Any formal questions or concerns about the content, text, or information contained within the body of this dictation should be directly addressed to the provider for clarification. documented in this encounter Nursing Notes * Mayi Linares CMA - 08/11/2024 7:24 AM EST Chief Complaint Patient presents with NEW PATIENT New pt ref by Dr Flores for diarrhea. Pt states she does not have chronic diarrhea. Recently on abx for her tooth that caused some stomach upset. Pt states she had upper GI/SBFT about [address] scan over a month ago showed colitis. [place] 04/26. documented in this encounter Plan of Treatment Upcoming Encounters Date Type Department Care Team (Late st Contact Info) Description 09/07/2024 1:30 PM EST Office Visit Interventional Pain Center, [facility] [address] [facility] [place] [phone] Josey Jacob PA-C [address] [facility] [place] [address] 11/21/2024 8:30 AM EST Office Visit Gastroenterology, [facility] [address] [facility] [place] [phone] Maria Fernanda Maciel CRNP [address] [facility] [place] [address] 01/03/2025 8:20 AM EDT [facility] [address] Layo Flores MD [address] [place], [place] [address] [address] 05/22/2025 10:20 AM EDT Office Visit Dermatology, [place] [address] [place] [address] Filomena Moncada PA-C [address] [place] [address] [place] [address] Pending Results Name Type Priority Associated Diagnoses Date /Time MAGNESIUM Lab Routine Gastroesophageal reflux disease without esophagitis Other vitamin B12 deficiency anemias 08/11/2024 8:08 AM EST VITAMIN B12 Lab Routine Gastroesophageal reflux disease without esophagitis Other vitamin B12 deficiency anemias 08/11/2024 8:08 AM EST Scheduled Orders Name Type Priority Associated Diagnoses Orde r Schedule MAGNESIUM Lab Routine Gastroesophageal reflux disease without esophagitis Other vitamin B12 deficiency anemias Expected: 08/11/2024, Expires: 08/11/2025 VITAMIN B12 Lab Routine Gastroesophageal reflux disease without esophagitis Other vitamin B12 deficiency anemias Expected: 08/11/2024, Expires: 08/11/2025 Scheduled Procedures Name Priority Associated Diagnoses Date/Ti [...] as of this encounter Visit Diagnoses Diagnosis Constipation, unspecified constipation type- Primary Gastroesophageal reflux disease without esophagitis Esophageal reflux [...] Power of Attor mariusz? No Care Teams Motor Teacher Relationship Specialty Start Date End Date February, Layo Almageur MD [address] [place] [address] PCP - General Family Medicine 06/09/23 documented as of this encounter
--- OUTSIDE RECORDS SUMMARY | 2024-10-14 04:29 | External Medical Summary | Summary of Care ---
Author Name Unknown Organization [facility] Address [address] [place] [address] Phone [phone] Care Team Providers Care Pediatric Oncologist Name Role Phone Layo Flores MD Primary Care Provider [phone] Reason for Visit * Reason Onset Date Comments Appointment 04/24/2024 Encounter Details Date Type Department Care Team ([facility] st Contact Info) Description 04/24/2024 Telephone ENDO [facility], Endoscopy [address] [address] Lizet Corrigan MD [address] [place] [address] Appointment Allergies Active Allergy Reactions Criticality Noted Date Comments Trevon Inhibitors 09/06/2002 Swelling in face Sulfamethoxazole-Trimeth oprim Rash 12/09/2016 Food (See Comments) 11/29/2001 Nuts: lip/throat swelling Cephalexin Other (Please comment) 12/14/2021 thrush Levofloxacin 11/03/2017 Rash on day 7 of abx Spironolactone Tachycardia 11/18/2011 Heart racing documented as of this encounter (statuses as of 06/06/2024) Medications Medication Sig Dispensed Refills Start Date End Date Status fluticasone (FLONASE) 50 MCG/ACT nasal sprayIndications:PN D (post-nasal drip) 2 spray in each nostril daily 16 g 2 05/06/2020 Active Additional Information Patient taking differently: 2 [place] Nasal Daily(AM), 2 spray in each nostril [...] Oral Daily(AM),Indications: as needed, Reported on 04/18/2024 Famotidine 40 MG Oral Tablet (Pepcid)Indications :Gastroesophageal reflux disease with esophagitis Take by mouth 1 Tablet in the morning. 90 Tablet 1 04/03/2022 Active Additional Information Patient taking differently:40 mg Oral Daily(AM),Indications: as needed, Reported on 04/18/2024 Atenolol 50 MG Oral Tablet (Tenormin) TAKE 1 TABLET BY MOUTH EVERY DAY 90 Tablet 3 08/31/2023 Active Additional Information Patient taking differently: 50 mg Oral HS, Reported on 04/18/2024 Clopidogrel Bisulfate 75 MG Oral Tablet (pLAVix)Indications :CROSS ROLLER demyelination (HCC) TAKE 1 TABLET BY MOUTH EVERY DAY 90 Tablet 3 08/31/2023 Active Erythromycin 2 % External Solution APPLY [...] Triamcinolone Acetonide 0.1 % External Cream (Aristocort)Indicat ions:Intertrigo Apply topically to affected area 2 times a day. To affected area. 15 g 5 10/18/2023 4 Discontinue d(Medicatio n List Clean Up) documented as of this encounter (statuses as of 06/06/2024) Active Problems Problem Noted Date Diagnosed Date Gastroesophageal reflux disease with esophagitis 02/23/2019 Family history of colon cancer 07/12/2009 Cerebrovascular disease, arteriosclerotic, post- stroke 01/15/2009 Overview: Modified per CVA protocol #8 Tobacco use disorder 02/03/2001 HTN, goal below 140/90 08/19/2000 documented as of this encounter (statuses as of 06/06/2024) Resolved Problems Problem Noted Date Diagnosed Date Resolved Date CROSS ROLLER demyelination 01/11/2023 01/04/2024 Prediabetes 11/14/2018 04/16/2022 Overview: Per Prediabetes protocol #1 Perforation of duodenum 07/10/201510/06 PURE HYPERCHOLESTEROLEM 04/24/200512/2008 CVA 02/03/2001 01/17/2009 Overview: Modified per CVA protocol #8 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 02/18/2021 Headache 11/06/2008 Overview: ICD-10 update of inactive term LUMBAGO 11/06/2008 GENERAL OSTEOARTHROSIS 07/12 Sequela, post-stroke 009 Peanut allergy 02/23/2019 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 documented as of this encounter (statuses as of 06/06/2024) Immunizations Name Administration Dates Next Due COVID-19 mRNA, LNP-s, No Pre serve, 2-Dose Series (Moderna) 09/04/2021,12/09/2020,10/29/2020 H1N1 2009 Influenza, IM 08/18/2009 Pneumococcal Conjugate Vacc, 13 Valent (Prevnar) 08/05/2018 Pneumococcal Polysaccharide PPV23 (Pneumovax) 11/06/2019 Seasonal Influenza, PF, 6 M & above, IM , (FluLaval or Fluzone) 07/25/2021,07/25/2020,08/05/2018 Seasonal Influenza, Quadriva lent Hd (Fluzone Hd) 07/05/2023 Seasonal Influenza, Quadriva lent Hd, 65+ Yrs 08/04/2022 Seasonal Influenza, Quadriva lent, No Preserve, IM 07/06/2017 Seasonal Influenza, Trivalen t, (IIV3), with Preserv, (Fluzone) 07/01/2015,07/18/2014,07/28/2013,07/14,07/01/2009 Seasonal Influenza, Trivalen t, Adjuvanted, 65+ YRS, [...] No 07/10/2015 documented as of this encounter Miscellaneous Notes * Telephone Encounter - Ingris Elliott OSA - 06/06/2024 4:00 PM EDT Lmm for pt to call back. * Telephone Encounter - Diana Velazco OSA - 04/25/2024 10:15 AM EDT Called patient and lmm for patient to call office back. * Telephone Encounter - Diana Velazco OSA - 04/25/2024 9:52 AM EDT Checking with Kinga on a better day at . * Telephone Encounter - Karina Noland OSA - 04/24/2024 4:53 PM EDT ----- Message from Lizet Corrigan MD sent at 04/24/2024 3:11 PM EDT ----- Can this pt be scheduled for cscopy with EUS/ dilumen with Tre in September. [place] for or [facility]. documented in this encounter Plan of Treatment Upcoming Encounters Date Type Department Care Team (Late st Contact Info) Description 07/05/2024 8:00 AM EDT Office Visit [place] [address] [place] [facility] [place] [address] February, Layo Almaguer MD [address] [place] [facility] [place] [address] 09/21/2024 9:20 AM EST Office Visit Gastroenterology, [facility] [address] [place] [address] Tre Fernandez MD [address] [place] [address] 05/22/2025 10:20 AM EDT Office Visit Dermatology, [place] [address] [place] [address] Filomena Moncada PA-C [address] [place] [address] [place] [address] Scheduled Procedures Name Priority Associated Diagnoses Date/Ti me COLONOSCOPY FLEXIBLE WITH EN DOSCOPIC ULTRASOUND EXAM Recall Pancreatic cyst Health Maintenance Due Date Last Done Comments Cologuard 1997 Sigmoidoscopy 1997 Zoster Vaccines (2 of 3) 01/17/2016 11/22/2015 Fecal Occult Blood Test 07/17/2020 07/17/2019 Adult Wellness Visit 05/19/2022 05/19/2021 Depression Screening 05/19/2022 05/19/2021 Mammogram 04/21/2024 04/21/2023, 11/04, 06/28/2019, Additional history exists COVID-19 Vaccine (2022- season) 2024 07/13/2023, 09/04/2021, 12/09/2020, Additional history exists Influenza Vaccine (FLU shot) (#1) 2024 07/05/2023, 08/04/2022, 07/25/2021, Additional history exists DXA Scan 01/18/2025 01/18/2018 GFR 05/15/2025 05/15/2024, 01/02, 07/21/2023, Additional history exists Albumin/Creatinine Ratio 01/16/2027 01/17/2024 DTap/Tdap Vaccines (3 - Td or Tdap) 11/07/2028 11/07/2018, 08/10/2008 Pneumococcal Vaccine: 65+ Years Completed 11/06/2019, 08/05/2018 Colonoscopy Discontinued 04/24/2024, 04/24/2024 Colorectal Cancer Screening Discontinued HPV (Gardasil) Vaccine [...] Power of Attor mariusz? No Care Teams Pediatric Oncologist Relationship Specialty Start Date End Date February, Layo Almaguer MD [address] [facility] [place] [address] PCP - General Family Medicine 06/09/23 documented as of this encounter
--- OUTSIDE RECORDS SUMMARY | 2024-10-14 04:29 | External Medical Summary | Summary of Care ---
Author Name Unknown Organization [facility] Address [address] [place] [address] Phone [phone] Care Team Providers Care Assistant Professor Of Religion Name Role Phone Layo Flores MD Primary Care Provider [phone] Reason for Visit * Reason Onset Date Comments Appointment 04/24/2024 Encounter Details Date Type Department Care Team (Late st Contact Info) Description 04/24/2024 Telephone ENDO [facility], Endoscopy [address] [address] Lizet Corrigan MD [address] [place] [address] Appointment Allergies Active Allergy Reactions Criticality Noted Date Comments Trevon Inhibitors 09/06/2002 Swelling in face Sulfamethoxazole-Trimeth oprim Rash 12/09/2016 Food (See Comments) 11/29/2001 Nuts: lip/throat swelling Cephalexin Other (Please comment) 12/14/2021 thrush Levofloxacin 11/03/2017 Rash on day 7 of abx Spironolactone Tachycardia 11/18/2011 Heart racing documented as of this encounter (statuses as of 07/04/2024) Medications Medication Sig Dispensed Refills Start Date End Date Status fluticasone (FLONASE) 50 MCG/ACT nasal sprayIndications: PND (post-nasal drip) 2 spray in each nostril daily 16 g 2 0 Active Additional Information Patient taking differently: 2 [place] Nasal Daily(AM), 2 spray in each nostril daily,Indications: as needed, Reported on 04/18/2024 Ipratropium-Albut cuco 20-100 MCG/ACT Inhalation Aerosol Solution Inhale by mouth. 5 Active Cyclobenzaprine HCl 5 MG Oral Tablet (Flexeril) TAKE 1 TABLET BY MOUTH AT BEDTIME NEEDED 15 Tablet 2 Active Pantoprazole Sodium 40 MG Oral Tablet Delayed Release (Protonix) Take by mouth 1 Tablet in the morning. 90 Tablet 2 Active Additional Information Patient taking differently:40 mg Oral Daily(AM),Indications: as needed, Reported on 04/18/2024 Famotidine 40 MG Oral Tablet (Pepcid)Indicatio ns:Gastroesophage al reflux disease with esophagitis Take by mouth 1 Tablet in the morning. 90 Tablet 1 2 Active Additional Information Patient taking differently:40 mg Oral Daily(AM),Indications: as needed, Reported on 04/18/2024 Atenolol 50 MG Oral Tablet (Tenormin) TAKE 1 TABLET BY MOUTH EVERY DAY 90 Tablet 3 3 Active Additional Information Patient taking differently: 50 mg Oral HS, Reported on 04/18/2024 Erythromycin 2 % External Solution APPLY TO AFFECTED AREA OF FACE, 2X A DAY 60 mL 11 4 Active Albuterol Sulfate HFA 108 (90 Base) MCG/ACT Inhalation Aerosol SolutionIndicatio ns:Mild intermittent reactive airway disease without complication TAKE 2 INHALATION DOSING UNIT BY MOUTH 4 TIMES A DAY NEEDED FOR SHORTNESS OF BREATH OR WHEEZING. 18 g 1 4 Active Montelukast Sodium 10 MG Oral Tablet (Singulair) TAKE 1 TABLET BY MOUTH EVERY DAY IN THE MORNING 90 Tablet 3 4 Active Additional Information Patient taking differently: 10 mg Oral HS, Reported on 04/18/2024 Clopidogrel Bisulfate 75 MG Oral Tablet (pLAVix)Indicatio ns:STONE DRESSER demyelination (HCC) TAKE 1 TABLET BY MOUTH EVERY DAY 90 Tablet 3 3 06/20/20 24 Discontinued Triamcinolone Acetonide 0.1 % External Cream (Aristocort)Indic ations:Intertrigo Apply topically to affected area 2 times a day. To affected area. 15 g 5 4 05/11/20 24 Discontinued(Med ication List Clean Up) documented as of this encounter (statuses as of 07/04/2024) Active Problems Problem Noted Date Diagnosed Date Gastroesophageal reflux disease with esophagitis 02/23/2019 Family history of colon cancer 07/12/2009 Cerebrovascular disease, arteriosclerotic, post- stroke 01/15/2009 Overview: Modified per CVA protocol #8 Tobacco use disorder 02/03/2001 HTN, goal below 140/90 08/19/2000 documented as of this encounter (statuses as of 07/04/2024) Resolved Problems Problem Noted Date Diagnosed Date Resolved Date STONE DRESSER demyelination 01/11/2023 01/04/2024 Prediabetes 11/14/2018 04/16/2022 Overview: Per Prediabetes protocol #1 Perforation of duodenum 07/10/201510/06 PURE HYPERCHOLESTEROLEM 04/24/2005 02/0 12/2008 CVA 02/03/2001 01/17/2009 Overview: Modified per CVA protocol #8 STONE DRESSER demyelination 08/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 She refused appt. Does not want to have proc done. * Telephone Encounter - Ingris Elliott OSA [...] with Tre in September. OK for or [facility]. documented in this encounter Plan of Treatment Upcoming Encounters Date Type Department Care Team (Late st Contact Info) Description 07/05/2024 8:00 AM EDT [facility] [place] [address] [facility] [phone] FebruaryLayo MD [address] [facility] [address] 09/07/2024 1:30 PM EST Office Visit Interventional [facility] Center, [facility] [address] [place] [address] Josey Jacob PA-C [address] [place] [address] 05/22/2025 10:20 AM EDT Office [facility], [place] [address] [facility] [address] Filomena Moncada PA-C [address] [place] [address] [place] [address] Scheduled Procedures Name Priority Associated Diagnoses Date/Ti [...] Power of Attor mariusz? No Care Teams Assistant Professor Of Religion Relationship Specialty Start Date End Date February, Layo Almaguer MD [address] [place] [address] PCP - General Family Medicine 06/09/23 documented as of this encounter
--- OUTSIDE RECORDS SUMMARY | 2024-10-14 04:29 | External Medical Summary | Summary of Care ---
Author Name Unknown Organization [facility] Address [address] [place] [address] Phone [phone] Care Team Providers Care Denture Waxer Name Role Phone FebruaryLayo MD Primary Care Provider [phone] Reason for Visit * Reason Onset Date Comments Follow Up Return in [address] [place] [address] Medication Administration 07/05/2024 Flu an d/or Pneumo Inj Encounter Details Date Type Department Care Team (Latest Contact Info) Description 07/05/2024 8:00 AM EDT [facility] [address] [place] [address] Layo Flores MD [address] [place] [address] Encounter for routine preventive care for patient older than 28 days*; Epigastric abdominal pain; Gastroesophageal reflux disease with esophagitis without hemorrhage; Prediabetes; HTN, goal below 140/90; Cerebrovascular disease, arteriosclerotic, post-stroke; SOUND EFFECTS TECHNICIAN demyelination (HCC); Risk and functional assessment; Need for prophylactic vaccination and inoculation against influenza Allergies Active Allergy Reactions Criticality Noted Date Comments Trevon Inhibitors 09/06/2002 Swelling in face Sulfamethoxazole-Trimeth oprim Rash 12/09/2016 Food (See Comments) 11/29/2001 Nuts: lip/throat swelling Cephalexin Other (Please comment) 12/14/2021 thrush Levofloxacin 11/03/2017 Rash on day 7 of abx Spironolactone Tachycardia 11/18/2011 Heart racing documented as of this encounter (statuses as of 07/05/2024) Medications Medication Sig Dispensed Refills Start Date End Date Status fluticasone (FLONASE) 50 MCG/ACT nasal sprayIndications:P ND (post-nasal drip) 2 spray in each nostril daily 16 g 2 05/06/2020 Active Additional Information Patient taking differently: 2 [place] Nasal Daily(AM), 2 spray in each nostril daily,Indications: as needed, Reported on 04/18/2024 Ipratropium-[place] rol 20-100 MCG/ACT Inhalation Aerosol Solution Inhale by [...] HFA 108 (90 Base) MCG/ACT Inhalation Aerosol SolutionIndication s:Mild intermittent reactive airway disease without complication TAKE [...] 04/18/2024 Triamcinolone Acetonide 0.1 % External Cream (Aristocort)Indica tions:Seborrheic keratosis Apply 2x daily to irritated lesions on body intermittently when needed 80 g 05/11/2024 Active Clopidogrel Bisulfate 75 MG Oral Tablet (pLAVix)Indication s:SOUND EFFECTS TECHNICIAN demyelination (HCC) TAKE 1 TABLET BY MOUTH EVERY DAY 90 Tablet 2 06/20/2024 Active Famotidine 40 MG Oral Tablet (Pepcid)Indication s:as needed Take 1 Tablet by mouth in the morning. 90 Tablet 3 07/05/2024 Active Famotidine 40 MG Oral Tablet (Pepcid)Indication s:Gastroesophageal reflux disease with esophagitis Take by mouth 1 Tablet in the morning. 90 Tablet 1 04/03/2022 07/05/20 24 Discontinu ed(Refill) Azithromycin 500 MG Oral Tablet (Zithromax)Indicat ions:Traveler's diarrhea Take 2 Tablets by mouth once for 1 dose. 2 Tablet 05/23/2024 07/05/20 24 Discontinu ed(Medicat ion List Clean Up) documented as of this encounter (statuses as of 07/05/2024) Active Problems Problem Noted Date Diagnosed Date SOUND EFFECTS TECHNICIAN demyelination 07/05/2024 Gastroesophageal reflux disease with esophagitis 02/23/2019 Family history of colon cancer 07/12/2009 Cerebrovascular disease, arteriosclerotic, post- stroke 01/15/2009 Overview: Modified per CVA protocol #8 Tobacco use disorder 02/03/2001 HTN, goal below 140/90 08/19/2000 documented as of this encounter (statuses as of 07/05/2024) Resolved Problems Problem Noted Date Diagnosed Date Resolved Date SOUND EFFECTS TECHNICIAN demyelination 01/11/2023 01/04/2024 Prediabetes 11/14/2018 04/16/2022 Overview: Per Prediabetes protocol #1 Perforation of duodenum 07/10/201510/06 PURE HYPERCHOLESTEROLEM 04/24/2005 0212/2008 CVA 02/03/2001 01/17/2009 Overview: Modified per CVA protocol #8 SOUND EFFECTS TECHNICIAN demyelination 08/19/2000 02/18/2021 Headache 11/06/2008 Overview: ICD-10 update of inactive term LUMBAGO 11/06/2008 GENERAL OSTEOARTHROSIS 07/12 [place], post-stroke 009 Peanut allergy 02/23/2019 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 documented as of this encounter (statuses as of 07/05/2024) Immunizations Name Administration Dates Next Due COVID-19 [...] Smoker Cigarettes 0.5 38 Smokeless Tobacco: Never Tobacco Cessation:Ready to Q uit: Not Asked; Counseling Given: Not Answered Comments:Smoking since age 20, < 1/2 pk per day Alcohol Use [...] on file documented as of this encounter Last Filed Vital Signs Vital Sign Reading Time Taken Comments Blood Pressure 136/88 07/05/2024 7:39 AM EDT Pulse 72 07/05/2024 7:39 AM EDT Temperature 36.2 C (97.1 F) 07/05/2024 7:39 AM ED T Respiratory Rate 18 07/05/2024 7:39 AM EDT Oxygen Saturation 96% 07/05/2024 7:39 AM EDT Inhaled Oxygen Concentration - - Weight - - Height 160 cm (5' 3") 07/05/2024 7:39 AM EDT Body Mass Index - - documented in this encounter Functional Status Functional Status Response [...] No 07/10/2015 documented as of this encounter Patient Instructions * Patient Instructions* Susanna Alex LPN - 07/05/2024 7:37 AM EDT Patient Instructions - Fall Prevention (This education is for all patients over 65 regardless of symptoms) Remember to take your current medications as prescribed. In order to prevent falls, you are encouraged to: Exercise Utilize assistive/adaptive devices Avoid multifocal lenses when walking Avoid hazards in home Maintain a regular toileting schedule Any questions please contact our office. Preventing Falls in the Home (This education is for all patients over 65 regardless of symptoms) As you get older, falls are more likely. Thats because your reaction time slows. Your muscles and joints may also get stiffer, making them less flexible. Illness, medications, and vision changes can also affect your balance. A fall could leave you unable to live on your own. To make your home safer, follow these tips: Floors Put nonskid pads under area rugs Remove throw rugs Replace worn floor coverings Tack carpets firmly to each step on carpeted stairs. Put nonskid strips on the edges of uncarpeted stairs Keep floors and stairs free of clutter and cords Arrange furniture so there are clear pathways Clean up any spills right away Bathrooms Install grab bars in the tub or shower Apply nonskid strips or put a nonskid rubber mat in the tub or shower Sit on a bath chair to bathe Use bathmats with nonskid backing Lighting Keep a flashlight in each room Put a nightlight along the pathway between the bedroom and the bathroom [facility] Patient Education Copyright 2008 - 2010 [facility] except where otherwise noted Preventing Falls: Exercises to Improve Balance, Flexibility, Strength, and Staying Power (This education is for all patients over 65 regardless of symptoms) Certain types of exercises may help make you less likely to fall. Try the ones below. Or do other exercises that your healthcare provider suggests. Depending on your health, you may need to start slowly. Dont let that stop you. Even small amounts of exercise can help you. Be sure to talk to yourhealthcare provider before starting any exercise program. Improve Balance Many types of exercise can help improve balance. Moy chi and yoga are good examples. Heres another one to try. You can do it anytime and almost anywhere. Stand next to a counter or solid support. Push yourself up onto your tiptoes. Hold for 5 seconds. If you start to lose your balance, hold on to the counter. Rest and repeat 5 times. Work up to holding for 20 to 30 seconds, if you can. Increase Flexibility Being more flexible makes it easier for you to move around safely. Try exercises like the seated hamstring stretch. Sit in a chair and put one foot on a stool. Straighten your leg and reach with both hands down either side of your leg. Reach as far down your leg as you can. Hold for about 20 seconds. Go back to the starting position. Then repeat 5 times. Switch legs. Build Strength Resistance exercises help build strength. You can do them without equipment. Or you can use weights, elastic bands, or special machines. One such exercise is called the biceps curl. You can hold a 1 pound weight or even a can of soup. Do this exercise at least 3 times a week. Strive for everyday. Sit up straight in a chair. Keep your elbow close to your body and your wrist straight. Bend your arm, moving your hand up to your shoulder. Then slowly lower your arm. Repeat 5 times. Switch to the other arm. Build Your Staying Power Aerobic exercises make your heart and lungs stronger so you can keep moving longer. Walking and swimming are two of the best types of exercises you can do. Using a stationary bike is great, too. Find an aerobic exercise that you enjoy. Start slowly and build up. Even 5 minutes is helpful. Aimfor a goal of 30 minutes, at least 3 times a week. You dont have to do 30 minutes in one session. Break it up and walk a little throughout the day. More Helpful Tips Start easy. Slowly work up to doing more. Talk with your healthcare provider about the best exercises for you. Call senior centers or health clubs about exercise programs. If needed, have a family member watch you walk every so often to check your stability. Exercise with a friend. Choose an activity you both enjoy. Try exercises that you can do anytime, anywhere. Here are two examples. Have someone with you when you first try these: Practice walking by placing one foot right in front of the other. Stand up and sit down 10 times. Repeat this throughout the day. [employer] Patient Education Copyright 2009 - 2010 [employer] except where otherwise noted. Preventing Falls: Moving Safely Using a Cane or Walker (This education is for all patients over 65 regardless of symptoms) Keep the cane away from your feet so you dont trip. A walking aid, such as a cane or walker, can help you stay more independent and avoid falls. Remember to keep your walking aid within easy reach when youre in a chair or in bed. And learn how to use it safely so you dont injure yourself. Using a Cane If you have a stronger side, hold the cane on that side. Get your balance. Move the cane and your weaker leg forward. Support your weight on both the cane and your weaker side. Step with your stronger leg. Start again from step 1. If youre using a folding walker, be sure you know how to lock it open. Check that its locked open before each use. Using a Walker Roll the walker (or lift it, if youre using one without wheels) forward about 12 inches. Step forward with your weaker leg first. Use the walker to help keep your balance. Bring your other foot forward to the center of the walker. Start again from step 1. Helpful Tips Check with your healthcare provider about the right walking aid to use. Ask about a walker with a seat attached. Check the tips of your cane or walker to make sure they have nonskid covers. Move slowly from room to room. Dont cheney. Sit down to get dressed. Use a monty pack or backpack to keep your hands free. Get help for jobs that mean climbing, even on a stepstool. [employer] Patient Education Copyright 2008 - 2010 [employer] except where otherwise noted. Urinary Incontinence Plan of Care Documentation: (This education is for all patients over 65 regardless of symptoms) Current medications reconciled. Patient encouraged to: Practice kegal exercises Provide education materials Use the restroom every 2 hours throughout the day Limit caffeine, alcohol, spicy foods and acidic foods Keep a bladder diary Limit fluid intake 3-4 hours before bed Lose weight Prevent constipation Take fluid pills at a time when you can get to the bathroom quickly Control sugar better if diabetic Limit fluid intake to 60 oz. per day Wear support stockings (TEDs)if you have edema Susanna Alex LPN 07/05/2024 Kegel Exercises Kegel exercises dont require special clothing or equipment. Theyre easy to learn and simple to do. And if you do them right, no one can tell youre doing them, so they can be done almost anywhere. Your doctor, nurse, or physical therapist can answer any questions you have and help you get started. A Weak Pelvic Floor The pelvic floor muscles may weaken due to aging, and vaginal childbirth, injury, surgery, chronic cough, or lack of exercise. If the pelvic floor is weak, your bladder and other pelvic organs may sag out of place. The urethra may also open too easily and allow urine to leak out. Kegel exercises can help you strengthen your pelvic floor muscles so they can better support the pelvic organs and control urine flow. How Kegel Exercises Are Done Try each of the Kegel exercises described below. When youre doing them, try not to move your leg, buttock, or stomach muscles. While youre urinating, try to stop the flow of urine. Start and stop it as often as you can. Contract as if you were stopping your urine stream, but do it when youre not urinating. Tighten your rectum as if trying not to pass gas. Contract your anus, but dont move your buttocks. Helpful Hints Do your Kegels as often as you can. The more you do them, the faster youll feel the results. Pick an activity you do often as a reminder. For instance, do your Kegels every time you sit down. Tighten your pelvic floor before you sneeze, get up from a chair, cough, laugh, or lift. This protects your pelvic floor from injury and can help prevent urine leakage. Try to hold each Kegel for a slow count to five. You probably wont be able to hold them for thatlong at first, but keep practicing. It will get easier as your pelvic floor gets stronger. Eventually, special weights that you place in your vagina may be recommended to help make your Kegels even more effective. [employer] Patient Education Copyright 2009 - 2011 [employer] except where otherwise noted. Here are some helpful tips for your urinary incontinence: (This education is for all patients over 65 regardless of symptoms) Practice Kegel exercises Use the restroom every 2 hours throughout the day Limit caffeine, alcohol, spicy foods, and acidic foods Keep a bladder diary Limit fluid intake 3-4 hours before bed Lose weight Prevent constipation Take fluid pills at a time when can get to the bathroom quickly Control sugar better if diabetic Limit fluid intake to 60 oz. per day Any questions, please feel free to contact our office. documented in this encounter Progress Notes * Susanna Alex LPN - 07/05/2024 7:47 AM EDT PRE - ADMINISTRATION DOCUMENTATION Are you experiencing any cold symptoms or fever? No Have you had Guillain-[place] Syndrome (an illness that causes paralysis) within the last 6 weeks? No Have you had the flu shot in the past? YES Have you ever had a reaction to the flu shot? No Susanna Alex LPN, 07/05/2024 7:47 AM Immunization Administration Documentation Time Out Procedure Performed: Yes Patient Identified (Ask Name/Date of ): Yes Does the patient have a fever greater than 101 degrees today? No Patient allergic to latex? No VFC Stock: No Immunization(s) verified: Yes, Immunization Name: Flu, VIS Sheet(s) given: Yes Verified Side and Site: Yes Verified Shot(s) with Parent(s)/Patient: Yes * Layo Flores MD - 07/05/2024 7:41 AM EDT Images from the original note were not included. Assessment and Plan 1. Epigastric abdominal pain Epigastric abdominal pain of 2-3 months' duration in a patient with history of duodenal perforationand gastrojejunostomy formation in 2014. We will get an upper GI with small-bowel follow-through for further evaluation as patient declines any further invasive procedures. - FLUORO UGI WITH SMALL BOWEL DOUBLE CONTRAST 2. Gastroesophageal reflux disease with esophagitis Continue famotidine. - Famotidine 40 MG Oral Tablet (Pepcid); Take 1 Tablet by mouth in the morning. Dispense: 90 Tablet; Refill: 3 3. Prediabetes A1c 5.9 in January 22, 2024. Repeat A1c in 6 months. - HEMOGLOBIN A1C; Future 4. HTN, goal below 140/90 Blood pressure at goal today. Continue to Chris. Lab work as below in 6 months. - CBC WITH WBC DIFFERENTIAL; Future - COMPREHENSIVE METABOLIC PANEL; Future - ALBUMIN / CREATININE RATIO, URINE; Future 5. Cerebrovascular disease, arteriosclerotic, post-stroke History of CVA in 2008. Continue Plavix. - LIPID PANEL WITH DIRECT LDL IF TG IS HIGH; Future 6. SOUND EFFECTS TECHNICIAN demyelination (HCC) Not otherwise specified in 1999. 7. Risk and functional assessment 8. Need for prophylactic vaccination and inoculation against influenza - INFLUENZA VAC., TRIVALENT, HD, PF, 65 AND ABOVE, 0.5 ML IM (FLUZONE HD) 9. Encounter for routine preventive care for patient older than 28 days Patient overall doing well. Further evaluate cause of epigastric abdominal pain with imaging as above. Patient did receive flu shot in office today. Recommend a COVID vaccine. Recommend she follows with dentistry and optometry routinely. Recommend 30 minutes of exercise 5 days weekly and Mediterranean/dash diet to help maintain goal weight. Sunscreen when exposed. Seatbelts always. Wrap-Up Follow up in 6 months. History of Present Illness The patient is a 73 year old female with past medical history of HTN, history of CVA in 2008, GERD,tobacco use who presents for yearly physical. Patient presents for yearly physical. Since last office visit patient had colonoscopy completed that showed diverticulosis of the sigmoid colon and a 1 cm bulge at the hepatic flexure. CT scan was obtained for further evaluation which was unremarkable. Patient continues to follow with interventional pain for trigger point injection treating myofascial pain of the right cervical spine. Patient also with seborrheic keratosis removed from the breast. Patient's main complaint today is epigastric abdominal pain that is gnawing and radiates to the midback primarily since she completed her colonoscopy in April. She reports some intermittent nausea but no vomiting. No change to the stools. Of note she does have a history of duodenal perforation during an upper GI in 2014 with laparoscopy with pyloric exclusion and gastrojejunostomy. Patient otherwise continues to take Plavix given history of CVA in 2008. She is on famotidine for GERD. From a health perspective she was up-to-date on colonoscopy. No further required in her lifetime. She is just past due for yearly mammogram. We did discuss continuing until age 76. She was agreeable to flu shot today. Physical Exam Vitals: 07/05/24 0739 Temp: 36.2 C (97.1 F) Pulse: 72 Resp: 18 SpO2: 96% BP: 136/88 Physical Exam Physical Exam Vitals reviewed. Constitutional: General: She is not in acute distress. Cardiovascular: Rate and Rhythm: Normal rate and regular rhythm. Heart sounds: No murmur heard. Pulmonary: Effort: Pulmonary effort is normal. No respiratory distress. Breath sounds: Normal breath sounds. Abdominal: General: There is no distension. Palpations: Abdomen is soft. Comments: Minimal tenderness to deep palpation in the epigastric region. Musculoskeletal: Cervical back: Neck supple. Lymphadenopathy: Cervical: No cervical adenopathy. Skin: General: Skin is warm and dry. Neurological: General: No focal deficit present. Mental Status: She is alert. This note has been completed in part utilizing [employer] Speech Voice Recognition Software. Due to technical limitations of the software, grammatical errors, random word insertions, prounoun errors, and incomplete sentences may occur. Any formal questions or concerns about the content, text, or information contained within the body of this dictation should be directly addressed to the provider for clarification. documented in this encounter Nursing Notes * Susanna Alex LPN - 07/05/2024 7:38 AM EDT The patient has been properly identified by confirmation of name and date of . Chief Complaint Patient presents with Follow Up Return in 6 months Patient would like flu shot today. Patient had colonoscopy in April- her "insides" have been terrible. Painful across her back with gas/bowel movments. Wants to have an upper GI and small bowel "look see" documented in this encounter Plan of Treatment Upcoming Encounters Date Type Department Care Team (Late st Contact Info) Description 09/07/2024 1:30 PM EST [facility] [address] [facility] [place] [address] Josey Jacob PA-C [address] [place] [address] 01/03/2025 8:20 AM EDT [facility] [address] [facility] [place] [id number] Layo Flores MD [address] [facility] [place] [address] 05/22/2025 10:20 AM EDT Office Visit [facility], [place] [address] Filomena Moncada PA-C [address] [place] [address] [place] [id number] Scheduled Orders Name Type Priority Associated Diagnoses Orde r Schedule CBC WITH WBC DIFFERENTIAL Lab Routine HTN, goal below 140/90 Expected: 07/05/2024 (Approximate), Expires: 07/05/2025 COMPREHENSIVE METABOLIC PANEL Lab Routine HTN, goal below 140/90 Expected: 07/05/2024 (Approximate), Expires: 07/05/2025 LIPID PANEL WITH DIRECT LDL IF TG IS HIGH Lab Routine Cerebrovascular disease, arteriosclerotic, post-stroke Expected: 07/05/2024, Expires: 07/05/2025 HEMOGLOBIN A1C Lab Routine Prediabetes Expected: 07/05/2024 (Approximate), Expires: 07/05/2025 ALBUMIN / CREATININE RATIO, URINE Lab Routine HTN, goal below 140/90 Expected: 07/05/2024 (Approximate), Expires: 07/05/2025 FLUORO UGI WITH SMALL BOWEL DOUBLE CONTRAST Medical Imaging Routine Epigastric abdominal pain Ordered: 07/05/2024 Scheduled Procedures Name Priority Associated Diagnoses Date/Ti me COLONOSCOPY FLEXIBLE WITH EN DOSCOPIC ULTRASOUND EXAM Recall Pancreatic cyst Health Maintenance Due Date Last Done Comments Cologuard 1997 Sigmoidoscopy 1997 Fecal Occult Blood Test 07/17/2020 07/17/2019 Adult Wellness Visit 05/19/2022 05/19/2021 Mammogram 04/21/2024 04/21/2023, 11/04, 06/28/2019, Additional history exists COVID-19 Vaccine ( season) 2024 07/13/2023, 09/04/2021, 12/09/2020, Additional history exists Postponed from 06/04/2024 (Patient Declined After Education) Zoster Vaccines (2 of 3) 08/12/2024 11/22/2015 [...] as of this encounter Visit Diagnoses Diagnosis Encounter for routine preventive care for patient older than 28 days- Primary Epigastric abdominal pain Abdominal pain, epigastric Gastroesophageal reflux disease with esophagitis without hemorrhage Prediabetes Other abnormal glucose HTN, goal below 140/90 Unspecified essential hypertension Cerebrovascular disease, arteriosclerotic, post-stroke Cerebral atherosclerosis 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 No Does the patient have Health Care Power of Attor mariusz? No Care Teams Denture Waxer Relationship Specialty Start Date End Date February, Layo Almaguer MD [address] [place] [facility] [place] [address] PCP - General Family Medicine 06/09/23 documented as of this encounter
--- OUTSIDE RECORDS SUMMARY | 2024-10-14 04:29 | External Medical Summary | Summary of Care ---
Author Name Unknown Organization [facility] Address [address] [place] [address] Phone [phone] Care Team Providers Care Valve Grinder Name Role Phone Sandra Layo Almaguer MD Primary Care Provider [phone] Reason for Visit * Reason Comments Neck Pain * Precert (Within 30 days (routine)) - Authorized Specialty Diagnoses / Procedures Referred By Carol Ann aguilar Referred To Contact Pain Medicine Diagnoses Myalgia, other site Strain of muscle and tendon of unspecified wall of thorax, subsequent encounter Procedures [place] INJECTION SINGLE/SURGICAL CONSULTANT TRIGGER POINT 1/2 MUSCLES Josey Jacob PA-C [address] [place] [address] Interventional [facility] [address] [place] [address] Referral ID Status Reason Start Date Expiration Date V isits Requested Visits Authorized [id number] Authorized Precert 04/18/2024 06/20/[phone] Encounter Details Date Type Department Care Team (Late st Contact Info) Description 05/15/2024 9:00 AM EDT Office Visit Interventional Pain Center, [facility] [address] [place] [address] Josey Jacob PA-C [address] [place] [address] Cervical myofascial pain syndrome* Allergies Active Allergy Reactions Criticality Noted Date Comments Trevon Inhibitors 09/06/2002 Swelling in face Sulfamethoxazole-Trimeth oprim Rash 12/09/2016 Food (See Comments) 11/29/2001 Nuts: lip/throat swelling Cephalexin Other (Please comment) 12/14/2021 thrush Levofloxacin 11/03/2017 Rash on day 7 of abx Spironolactone Tachycardia 11/18/2011 Heart racing documented as of this encounter (statuses as of 05/15/2024) Medications Medication Sig Dispensed Refills Start Date End Date Status fluticasone (FLONASE) 50 MCG/ACT nasal sprayIndications:PN D (post-nasal drip) 2 spray in each nostril daily 16 g 2 05/06/2020 Active Additional Information Patient taking differently: 2 [place] Nasal Daily(AM), 2 spray in each nostril [...] Clopidogrel Bisulfate 75 MG Oral Tablet (pLAVix)Indications :GLUE CLAMP OPERATOR demyelination (HCC) TAKE 1 TABLET BY MOUTH [...] intermittently when needed 80 g 05/11/2024 Active documented as of this encounter (statuses as of 05/15/2024) Active Problems Problem Noted Date Diagnosed Date Gastroesophageal reflux disease with esophagitis 02/23/2019 Family history of colon cancer 07/12/2009 Cerebrovascular disease, arteriosclerotic, post- stroke 01/15/2009 Overview: Modified per CVA protocol #8 Tobacco use disorder 02/03/2001 HTN, goal below 140/90 08/19/2000 documented as of this encounter (statuses as of 05/15/2024) Resolved Problems Problem Noted Date Diagnosed Date Resolved Date GLUE CLAMP OPERATOR demyelination 01/11/2023 01/04/2024 Prediabetes 11/14/2018 04/16/2022 Overview: Per Prediabetes protocol #1 Perforation of duodenum 07/10/201510/06 PURE HYPERCHOLESTEROLEM 04/24/2005 0212/2008 CVA 02/03/2001 01/17/2009 Overview: Modified per CVA protocol #8 GLUE CLAMP OPERATOR demyelination 08/19/2000 02/18/2021 Headache 11/06/2008 Overview: ICD-10 update of inactive term LUMBAGO 11/06/2008 GENERAL OSTEOARTHROSIS 07/12 Sequela, post-stroke 009 Peanut allergy 02/23/2019 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 documented as of this encounter (statuses as of 05/15/2024) Immunizations Name Administration Dates Next Due COVID-19 [...] lent, No Preserve, IM 07/06/2017 Seasonal Influenza, Split, I IV3, With Preserve, Inj 07/01/2015,07/18/2014,07/28/2013,07/14,07/01/2009 Seasonal Influenza, Trivalen t, Adjuvanted, 65+ yrs 06/23/2019 TDAP (age 10 and older)(Boostrix) 11/07/2018 [...] No 07/10/2015 documented as of this encounter Progress Notes * Josey Jacob PA-C - 05/15/2024 9:03 AM EDT Procedure:Trigger Point Injection(s)-Local Anesthetic CPT #51199 Indication(s): Myofascial Pain of right cervical spine region Co-morbid conditions: Reviewed. No prior adverse reaction to anesthetic. Airway is normal. Neck has mildly decreased passive ROM. Discussed alternative plans, benefits and potential risks which include, but not limited to bleeding, infections, nerve damage, pneumothorax or failure of the procedure. She agreed to proceed with this procedure. Informed consent was obtained. Time out was done, which included identity of patient, type of procedure, site(s.) Four total trigger points over right cervical spine region involving trapezius and paraspinal muscle groups with total of 4 mL of 1% lidocaine using 27 gauge needle after alcohol prep. F ollowing injection, each site was needled in the usual fashion. The needles were removed, site(s) cleaned and dried. Patient observed for five minutes following procedure. Tolerated well. Will avoid heat for 24 hours, can apply ice. Complication(s): none Follow Up: 10 weeks for repeat TPI, CPT 25042. Aware this will likely be during my maternity leave. Josey Jacob PA-C 05/15/24 documented in this encounter Plan of Treatment Upcoming Encounters Date Type Department Care Team (Late st Contact Info) Description 05/15/2024 11:00 AM EDT Imaging Radiology [facility] [address] [facility] [address] [facility] [place] [address] 07/05/2024 8:00 AM EDT Office Visit [facility] [address] [facility] [address] FebruaryLayo MD [address] [facility] [address] 07/26/2024 11:25 AM EDT Office Visit [facility], [facility] [address] [facility] [place] [address] Jaycee Schmidt MD [address] [place] [address] [place] [address] 09/21/2024 9:20 AM EST Office Visit Gastroenterology, [facility] [address] [facility] [place] [address] Tre Fernandez MD [address] [facility] [place] [address] 05/22/2025 10:20 AM EDT Office Visit Dermatology, [place] [address] [facility] [address] Filomena Moncada PA-C [address] [place] [address] [place] [address] Scheduled Procedures Name Priority Associated Diagnoses Date/Ti me COLONOSCOPY FLEXIBLE WITH EN DOSCOPIC ULTRASOUND EXAM Recall Pancreatic cyst Health Maintenance Due Date Last Done Comments Cologuard 1997 Sigmoidoscopy 1997 Zoster Vaccines (2 of 3) 01/17/2016 11/22/2015 Fecal Occult Blood Test 07/17/2020 07/17/2019 Adult Wellness Visit 05/19/2022 05/19/2021 Depression Screening 05/19/2022 05/19/2021 COVID-19 Vaccine ( season) 2023 07/13/2023, 09/04/2021, 12/09/2020, Additional history exists Mammogram 04/21/2024 04/21/2023, 11/04, 06/28/2019, Additional history exists Influenza Vaccine (FLU shot) (#1) 2024 07/05/2023, 08/04/2022, 07/25/2021, Additional history exists GFR 01/16/2025 01/17/2024, 07/04, 11/09/2022, Additional history exists DXA Scan 01/18/2025 01/18/2018 Albumin/Creatinine Ratio 01/16/2027 01/17/2024 DTaP,Tdap,and Td Vaccines (3 - Td or Tdap) 11/07/2028 [...] Power of Attor mariusz? No Care Teams Valve Grinder Relationship Specialty Start Date End Date February, Layo Almaguer MD [address] [facility] [address] PCP - General Family Medicine 06/09/23 documented as of this encounter
--- OUTSIDE RECORDS SUMMARY | 2024-10-14 04:29 | External Medical Summary | Summary of Care ---
Author Name Unknown Organization [facility] Address [address] [place] [address] Phone [phone] Care Team Providers Care Air Quality Manager Name Role Phone Sandra Layo Almaguer MD Primary Care Provider [phone] Encounter Details Date Type Department Care Team (Latest Contact Info) Description 05/11/2024 3:46 PM EDT - 05/11/2024 11:59 PM EDT Hospital Encounter Radiology Film [facility] [address] [place] [address] Arrived Discharge Disposition: Home - Self Care Allergies Active Allergy Reactions Criticality Noted Date Comments Trevon Inhibitors 09/06/2002 Swelling in face Sulfamethoxazole-Trimeth oprim Rash 12/09/2016 Food (See Comments) 11/29/2001 Nuts: lip/throat swelling Cephalexin Other (Please comment) 12/14/2021 thrush Levofloxacin 11/03/2017 Rash on day 7 of abx Spironolactone Tachycardia 11/18/2011 Heart racing documented as of this encounter (statuses as of 05/12/2024) Medications Medication Sig Dispensed Refills Start Date End Date Status fluticasone (FLONASE) 50 MCG/ACT nasal sprayIndications:PN D (post-nasal drip) 2 spray in each nostril daily 16 g 2 05/06/2020 Active Additional Information Patient taking differently: 2 [place] Nasal Daily(AM), 2 spray in each nostril [...] Clopidogrel Bisulfate 75 MG Oral Tablet (pLAVix)Indications :DETECTIVE PRECINCT demyelination (HCC) TAKE 1 TABLET BY MOUTH [...] as of this encounter (statuses as of 05/12/2024) Active Problems Problem Noted Date Diagnosed Date Gastroesophageal reflux disease with esophagitis 02/23/2019 Family history of colon cancer 07/12/2009 Cerebrovascular disease, arteriosclerotic, post- stroke 01/15/2009 Overview: Modified per CVA protocol #8 Tobacco use disorder 02/03/2001 HTN, goal below 140/90 08/19/2000 documented as of this encounter (statuses as of 05/12/2024) Resolved Problems Problem Noted Date Diagnosed Date Resolved Date DETECTIVE PRECINCT demyelination 01/11/2023 01/04/2024 Prediabetes 11/14/2018 04/16/2022 Overview: Per Prediabetes protocol #1 Perforation of duodenum 07/10/201510/06 PURE HYPERCHOLESTEROLEM 04/24/200512/2008 CVA 02/03/2001 01/17/2009 Overview: Modified per CVA protocol #8 DETECTIVE PRECINCT demyelination 08/19/2000 02/18/2021 Headache 11/06/2008 Overview: ICD-10 update of inactive term LUMBAGO 11/06/2008 GENERAL OSTEOARTHROSIS 07/12 Sequela, post-stroke 009 Peanut allergy 02/23/2019 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 documented as of this encounter (statuses as of 05/12/2024) Immunizations Name Administration Dates Next Due COVID-19 [...] AM EDT Office Visit Interventional Pain Center, [facility] [address] [facility] [place] [address] Josey Jacob PA-C [address] [place] [address] 05/15/2024 11:00 AM EDT [facility] [address] [facility] [place] [address] 07/05/2024 8:00 AM EDT Office Visit [facility], [place] [address] [facility] [phone] Layo Flores MD [address] [place] [facility] [place] [address] 09/21/2024 9:20 AM EST Office Visit Gastroenterology, [facility] [address] [facility] [place] [address] Tre Fernandez MD 132 [facility] [place] [address] 05/22/2025 10:20 AM EDT Office Visit Dermatology, [place] [address] [place] [facility] [place] [address] Filomena Moncada PA-C [address] [place] [address] [place] [address] Scheduled Procedures Name Priority Associated Diagnoses Date/Ti me COLONOSCOPY FLEXIBLE WITH EN DOSCOPIC ULTRASOUND EXAM Recall Pancreatic cyst Health Maintenance Due Date Last Done Comments Cologuard 1997 Sigmoidoscopy 1997 Zoster Vaccines (2 of 3) 01/17/2016 11/22/2015 Fecal Occult Blood Test 07/17/2020 07/17/2019 Adult Wellness Visit 05/19/2022 05/19/2021 Depression Screening 05/19/2022 05/19/2021 COVID-19 Vaccine (5 - 2023-24 season) 2023 07/13/2023, 09/04/2021, 12/09/2020, Additional history [...] Procedure Name Priority Date/Time Associated Diagnosis Comments DERM EXAM - DERM (IMAGES ONLY, NO REPORT) Routine 05/11/2024 3:46 PM EDT Seborrheic keratosis documented in this encounter Results * DERM EXAM - DERM (IMAGES ONLY, NO REPORT) (05/11/2024 3:46 PM EDT) Narrative Scheduling, Silent - 05/11/2024 3:46 PM EDT This is an imaging study not interpreted or resulted by a [facility] or [facility] contracted radiologist. Filomena Moncada PA-C RADIOLOGY (RAD GENERAL) documented in this encounter Advance Directives * Full Code (Latest Code Status on File) Date Activated Date Inactivated Comments 07/09/2015 11:15 PM 07/23/2015 2:52 PM Question Answer Comments Discussion of Advance Directives occurred with: Not Discussed Does the patient have a Living Will? No Does the patient have Health Care Power of Attor mariusz? No Care Teams Air Quality Manager Relationship Specialty Start Date End Date February, Layo Almaguer MD [address] [place] [address] PCP - General Family Medicine 06/09/23 documented as of this encounter
--- OUTSIDE RECORDS SUMMARY | 2024-10-14 04:29 | External Medical Summary ---
Author Name Unknown Address Unknown Organization K0G:[facility] [place] [address] [place] [address] Laboratory Report Ordering Provider Test Date Status 05/15/2024 09:25:46 Final Observation Date Value Abnormality Reference (Units ) Status Creatinine 05/15/2024 09:25:46 0.8 0.5-1.0 (mg/dL) Final Glomerular filtration rate/1.73 sq M.predicted [Volume Rate/Area] in Serum, Plasma or Blood by Creatinine-based formula (CKD-EPI) 05/15/2024 09:25:46 80 >=60 (mL/min) Final eGFR is calculated based on the CKD-EPI 2020 equation. Performing Location [facility] [place] [address] [place] [address]
--- OUTSIDE RECORDS SUMMARY | 2024-10-14 04:29 | External Medical Summary | Summary of Care ---
Author Name Unknown Organization [facility] Address [address] [place] [address] Phone [phone] Care Team Providers Care Cabinet And Trim Installer Name Role Phone Layo Flores MD Primary Care Provider [phone] Reason for Visit * Reason Onset Date Comments Appointment 04/24/2024 Encounter Details Date Type Department Care Team (Late st Contact Info) Description 04/24/2024 Telephone ENDO [facility], Endoscopy [address] [address] Lizet Corrigan MD [address] [place] [address] Appointment Allergies Active Allergy Reactions Criticality Noted [...] Active Additional Information Patient taking differently: 2 [place] Nasal Daily(AM), 2 spray in each nostril [...] Clopidogrel Bisulfate 75 MG Oral Tablet (pLAVix)Indicatio ns:PAPER AND PULP MILL OPERATOR demyelination (HCC) TAKE 1 TABLET BY [...] Problem Noted Date Diagnosed Date Resolved Date PAPER AND PULP MILL OPERATOR demyelination 01/11/2023 01/04/2024 Prediabetes 11/14/2018 04/16/2022 Overview: Per Prediabetes protocol #1 Perforation of duodenum 07/10/201510/06 PURE HYPERCHOLESTEROLEM 04/24/2005 02/0 12/2008 CVA 02/03/2001 01/17/2009 Overview: Modified per CVA protocol #8 PAPER AND PULP MILL OPERATOR demyelination 08/19/2000 02/18/2021 Headache 11/06/2008 Overview: [...] for or [facility]. documented in this encounter Plan of Treatment Upcoming Encounters Date Type Department Care Team (Late st Contact Info) Description 07/05/2024 8:00 AM EDT Office Visit Family Practice, [place] [address] [facility] [facility] [address] FebruaryLayo MD [address] [facility] [address] 09/07/2024 1:30 PM EST Office Visit Interventional Pain Center, [facility] [address] [place] [address] Josey Jacob PA-C [address] [place] [address] 05/22/2025 10:20 AM EDT Office Visit Dermatology, [place] [address] [facility] [address] Filomena Moncada PA-C [address] [place] [address] [place] [address] Scheduled Procedures Name Priority Associated Diagnoses Date/Ti [...] Power of Attor mariusz? No Care Teams Cabinet And Trim Installer Relationship Specialty Start Date End Date February, Layo Almaguer MD [address] [place] [address] PCP - General Family Medicine 06/09/23 documented as of this encounter
--- OUTSIDE RECORDS SUMMARY | 2024-10-14 04:29 | External Medical Summary | Summary of Care ---
Author Name Unknown Organization [facility] Address [address] [place] [address] Phone [phone] Care Team Providers Care Forest Fire Fighters Dispatcher Name Role Phone FebruaryLayo MD Primary Care Provider [phone] Reason for Visit * Reason Onset Date Comments Health Maintenance 06/19/2024 Encounter Details Date Type Department Care Team (Late st Contact Info) Description 06/19/[address] [facility] [address] [place] [address] FebruaryLayo MD [address] [place] [address] Health Maintenance Allergies Active Allergy Reactions Criticality Noted Date Comments Trevon Inhibitors 09/06/2002 Swelling in face Sulfamethoxazole-Trimeth oprim Rash 12/09/2016 Food (See Comments) 11/29/2001 Nuts: lip/throat swelling Cephalexin Other (Please comment) 12/14/2021 thrush Levofloxacin 11/03/2017 Rash on day 7 of abx Spironolactone Tachycardia 11/18/2011 Heart racing documented as of this encounter (statuses as of 06/19/2024) Medications Medication Sig Dispensed Refills Start Date End Date Status fluticasone (FLONASE) 50 MCG/ACT nasal sprayIndications:PN D (post-nasal drip) 2 spray in each nostril daily 16 g 2 05/06/2020 Active Additional Information Patient taking differently: 2 [place] Nasal Daily(AM), 2 spray in each nostril [...] Clopidogrel Bisulfate 75 MG Oral Tablet (pLAVix)Indications :IMPACT HAMMER OPERATOR demyelination (HCC) TAKE 1 TABLET BY [...] as of this encounter (statuses as of 06/19/2024) Active Problems Problem Noted Date Diagnosed Date Gastroesophageal reflux disease with esophagitis 02/23/2019 Family history of colon cancer 07/12/2009 Cerebrovascular disease, arteriosclerotic, post- stroke 01/15/2009 Overview: Modified per CVA protocol #8 Tobacco use disorder 02/03/2001 HTN, goal below 140/90 08/19/2000 documented as of this encounter (statuses as of 06/19/2024) Resolved Problems Problem Noted Date Diagnosed Date Resolved Date IMPACT HAMMER OPERATOR demyelination 01/11/2023 01/04/2024 Prediabetes 11/14/2018 04/16/2022 Overview: Per Prediabetes protocol #1 Perforation of duodenum 07/10/201510/06 PURE HYPERCHOLESTEROLEM 04/24/2005 0212/2008 CVA 02/03/2001 01/17/2009 Overview: Modified per CVA protocol #8 IMPACT HAMMER OPERATOR demyelination 08/19/2000 02/18/2021 Headache 11/06/2008 Overview: ICD-10 update of inactive term LUMBAGO 11/06/2008 GENERAL OSTEOARTHROSIS 07/12 Sequela, post-stroke 009 Peanut allergy 02/23/2019 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 documented as of this encounter (statuses as of 06/19/2024) Immunizations Name Administration Dates Next Due COVID-19 [...] encounter Miscellaneous Notes * Telephone Encounter - Ceci Akbar LPN - 06/19/2024 8:09 AM EDT Care Gaps Comprehensive Care Outreach Last Office/Telemedicine Visit: 01/04/2024 (in office), Visit date not found (telemedicine) Next Office Visit: 07/05/2024 Hemoglobin AIC Results: Lab Results Component Value Date/Time HEMOGLOBIN A1C - [facility] 5.9 (H) 01/17/2024 08:33 AM HEMOGLOBIN A1C - [facility] 5.8 (H) 11/09/2022 07:41 AM HEMOGLOBIN A1C - [facility] 5.6 04/07/2022 10:41 AM HEMOGLOBIN A1C - [facility] 5.7 (H) 10/16/2020 09:14 AM HEMOGLOBIN A1C - [facility] 5.8 (H) 11/13/2019 10:46 AM HEMOGLOBIN A1C - [facility] 5.7 (H) 07/17/2019 10:03 AM BP Readings from Last 1 Encounters: 04/24/24 171/98 Reviewed Health Maintenance below: Health Maintenance Topic Date Due Zoster Vaccines (2 of 3) 01/17/2016 Depression Screening 05/19/2022 Adult Wellness Visit 05/19/2022 Mammogram 04/21/2024 Influenza Vaccine (FLU shot) (1) 06/04/2024 COVID-19 Vaccine ( season) 2024 Mamm mt macho awv Care Gap Outreach Action Taken: [employer] message sent documented in this encounter Plan of Treatment Upcoming Encounters Date Type Department Care Team (Late st Contact Info) Description 07/05/2024 8:00 AM EDT [facility] [address] [facility] [phone] FebruaryLayo MD [address] [facility] [id number] 09/21/2024 9:20 AM EST Office Visit Gastroenterology, [facility] [address] [place] [address] Tre Fernandez MD [address] [place] [address] 05/22/2025 10:20 AM EDT [facility] [address] [facility] [place] [address] Filomena Moncada PA-C [address] [place] [address] [place] [address] Scheduled Procedures Name Priority Associated Diagnoses Date/Ti [...] Power of Attor mariusz? No Care Teams Forest Fire Fighters Dispatcher Relationship Specialty Start Date End Date February, Layo Almaguer MD [address] [place] [address] PCP - General Family Medicine 06/09/23 documented as of this encounter
--- OUTSIDE RECORDS SUMMARY | 2024-10-14 04:29 | External Medical Summary | Summary of Care ---
Author Name Unknown Organization [facility] Address [address] [place] [facility] [place] [address] Phone [phone] Care Team Providers Care Radiologic Technologist Name Role Phone Sandra Layo Almaguer MD Primary Care Provider Encounter Details Date Type Department Care Team (Late st Contact Info) Description 07/11/2024 Orders Only PATIENT PORTAL DO NOT DELETE THIS DEPT USED BY [place] [id number] Allergies Active Allergy Reactions Criticality Noted Date [...] Active Additional Information Patient taking differently: 2 [place] Nasal Daily(AM), 2 spray in each nostril [...] Bisulfate 75 MG Oral Tablet (pLAVix)Indications :SOCK EXAMINER demyelination (HCC) TAKE 1 TABLET BY MOUTH EVERY DAY 90 Tablet 2 06/20/2024 Active Famotidine 40 MG Oral Tablet (Pepcid)Indications :as needed Take 1 Tablet by mouth in the morning. 90 Tablet 3 07/05/2024 Active documented as of this encounter (statuses as of 07/11/2024) Active Problems Problem Noted Date Diagnosed Date SOCK EXAMINER demyelination 07/05/2024 Gastroesophageal reflux disease with esophagitis 02/23/2019 Family history of colon cancer 07/12/2009 Cerebrovascular disease, arteriosclerotic, post- stroke 01/15/2009 Overview: Modified per CVA protocol #8 Tobacco use disorder 02/03/2001 HTN, goal below 140/90 08/19/2000 documented as of this encounter (statuses as of 07/11/2024) Resolved Problems Problem Noted Date Diagnosed Date Resolved Date SOCK EXAMINER demyelination 01/11/2023 01/04/2024 Prediabetes 11/14/2018 04/16/2022 Overview: Per Prediabetes protocol #1 Perforation of duodenum 07/10/201510/06 PURE HYPERCHOLESTEROLEM 04/24/2005 02/12/2008 CVA 02/03/2001 01/17/2009 Overview: Modified per CVA protocol #8 SOCK EXAMINER demyelination 08/19/2000 02/18/2021 Headache 11/06/2008 Overview: ICD-10 [...] PM EST Office Visit Interventional Pain Center, [facility] [address] [place] [address] Josey Jacob PA-C [address] [place] [address] 01/03/2025 8:20 AM EDT Office [facility] [place] [address] [facility] [phone] FebruaryLayo MD [address] [facility] [address] 05/22/2025 10:20 AM EDT Office Visit [facility]ermatology, [place] [address] [facility] [address] Filomena Moncada PA-C [address] [place] [address] [place] [address] Scheduled Procedures Name Priority Associated Diagnoses Date/Ti [...] Power of Attor mariusz? No Care Teams Radiologic Technologist Relationship Specialty Start Date End Date February, Layo Almaguer MD [address] [place] [address] PCP - General Family Medicine 06/09/23 documented as of this encounter
--- OUTSIDE RECORDS SUMMARY | 2024-10-14 04:29 | External Medical Summary | Summary of Care ---
Author Name Unknown Organization [facility] Address [address] [place] [address] Phone [phone] Care Team Providers Care Pet Walker Name Role Phone FebruaryLayo MD Primary Care Provider [phone] Reason for Referral * Evaluate & Treat - Unlimited Visits (Within 10 days (routine)) - Authorized Specialty Diagnoses / Procedures Referred By Carol Ann aguilar Referred To Contact Gastroenterology Diagnoses Traveler's diarrhea Abnormal colonoscopy February, Layo Almaguer MD [address] [place] [address] Referral ID Status Reason Start Date Expiration Date Visits Requested Visits Authorized [id number] Authorized Specialty Services Required 06/19/[phone] Question Answer Referral Priority Within 10 days (routine) Where should this appointment be scheduled? [facility] For what condition is the patient being referred? All Gastro Conditions Reason for Visit * Reason Onset Date Comments Referral 06/19/2024 Gastro Encounter Details Date Type Department Care Team ([facility] st Contact Info) Description 06/19/2024 Telephone [facility] [address] [place] [address] Layo Flores MD [address] [place] [address] Referral (Gastro) Allergies Active Allergy Reactions Criticality Noted Date [...] Active Additional Information Patient taking differently: 2 [place] Nasal Daily(AM), 2 spray in each nostril [...] Clopidogrel Bisulfate 75 MG Oral Tablet (pLAVix)Indications :BARREL REAMER demyelination (HCC) TAKE 1 TABLET BY MOUTH [...] Problem Noted Date Diagnosed Date Resolved Date BARREL REAMER demyelination 01/11/2023 01/04/2024 Prediabetes 11/14/2018 04/16/2022 Overview: Per Prediabetes protocol #1 Perforation of duodenum 07/10/201510/06 PURE HYPERCHOLESTEROLEM 04/24/2005 0212/2008 CVA 02/03/2001 01/17/2009 Overview: Modified per CVA protocol #8 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 * Telephone Encounter - Filomena Hunt OSA - 06/19/2024 10:57 AM EDT Has the patient been seen for this problem? (Y/N)?: Y, pt had US done that was ordered by PCP If No, an appt needs to be scheduled before a referral will be placed (exception: proceed with referral request if referral request is for a yearly routine appointment with speciality) Patient Name: Kimberlee Willams Patient Primary care provider: Layo Flores MD Does this need to be an insurance referral (Y/N)?: na If Yes, does the insurance referral need to be placed into the [employer] system? Name of preferred specialist: Meenu Type of specialist: [place] Location of specialist: [facility] or [place] Specialist's Phone #: na Specialist's Fax #: ma Reason for visit: low back pain, pt is concerned about CT results from 05/15/24 Date of visit: na documented in this encounter Plan of Treatment Upcoming Encounters Date Type Department Care Team (Late st Contact Info) Description 07/05/2024 8:00 AM EDT Office Visit Family [facility] [place] [address] [facility] [phone] FebruaryLayo MD [address] [place] [address] 05/22/2025 10:20 AM EDT Office Visit Dermatology, [place] [address] [place] [address] Filomena Moncada PA-C [address] [place] [address] [place] [address] Scheduled Procedures Name Priority Associated Diagnoses Date/Ti me COLONOSCOPY FLEXIBLE WITH EN DOSCOPIC ULTRASOUND EXAM Recall Pancreatic cyst Scheduled Referrals Name Type Priority Associated Diagnoses Order Schedule ADULT GASTROENTEROLOGY REFERRAL OP Referral Within 10 days (routine) Traveler's diarrhea Abnormal colonoscopy Ordered: 06/19/2024 Health Maintenance Due Date Last Done Comments [...] as of this encounter Visit Diagnoses Diagnosis Traveler's diarrhea- Primary Infectious diarrhea Abnormal colonoscopy Nonspecific (abnormal) findings on radiological and other examination of gastrointestinal tract documented in this encounter Advance Directives * Full Code (Latest Code Status on File) Date Activated Date Inactivated Comments 07/09/2015 11:15 PM 07/23/2015 2:52 PM Question Answer Comments Discussion of Advance Directives occurred with: Not Discussed Does the patient have a Living Will? No Does the patient have Health Care Power of Attor mariusz? No Care Teams Pet Walker Relationship Specialty Start Date End Date February, Layo Almaguer MD [address] [place] [address] PCP - General Family Medicine 06/09/23 documented as of this encounter
--- OUTSIDE RECORDS SUMMARY | 2024-10-14 04:29 | External Medical Summary | Summary of Care ---
Author Name Unknown Organization [facility] Address [address] [place] [address] Phone [phone] Care Team Providers Care Analytics Specialist Name Role Phone FebruaryLayo MD Primary Care Provider Reason for Visit * Reason Comments eRx-Medication Refill Encounter Details Date Type Department Care Team (Late st Contact Info) Description 06/20/2024 Refill Family Practice [facility] [address] [place] [address] FebruaryLayo MD [address] [place] [address] STAINED GLASS PAINTER demyelination (HCC) Allergies Active Allergy Reactions Criticality Noted Date Comments Trevon Inhibitors 09/06/2002 Swelling in face Sulfamethoxazole-Trimeth oprim Rash 12/09/2016 Food (See Comments) 11/29/2001 Nuts: lip/throat swelling Cephalexin Other (Please comment) 12/14/2021 thrush Levofloxacin 11/03/2017 Rash on day 7 of abx Spironolactone Tachycardia 11/18/2011 Heart racing documented as of this encounter (statuses as of 06/20/2024) Medications Medication Sig Dispensed Refills Start Date End Date Status fluticasone (FLONASE) 50 MCG/ACT nasal sprayIndications: PND (post-nasal drip) 2 spray in each nostril daily 16 g 2 0 Active Additional Information Patient taking differently: 2 [place] Nasal Daily(AM), 2 spray in each nostril [...] 04/18/2024 Triamcinolone Acetonide 0.1 % External Cream (Aristocort)Indic ations:Seborrheic keratosis Apply 2x daily to irritated lesions on body intermittently when needed 80 g 4 Active Clopidogrel Bisulfate 75 MG Oral Tablet (pLAVix)Indicatio ns:STAINED GLASS PAINTER demyelination (HCC) TAKE 1 TABLET BY MOUTH EVERY DAY 90 Tablet 2 4 Active Clopidogrel Bisulfate 75 MG Oral Tablet (pLAVix)Indicatio ns:STAINED GLASS PAINTER demyelination (HCC) TAKE 1 TABLET BY MOUTH EVERY DAY 90 Tablet 3 3 06/20/20 24 Discontinued documented as of this encounter (statuses as of 06/20/2024) Active Problems Problem Noted Date Diagnosed Date Gastroesophageal reflux disease with esophagitis 02/23/2019 Family history of colon cancer 07/12/2009 Cerebrovascular disease, arteriosclerotic, post- stroke 01/15/2009 Overview: Modified per CVA protocol #8 Tobacco use disorder 02/03/2001 HTN, goal below 140/90 08/19/2000 documented as of this encounter (statuses as of 06/20/2024) Resolved Problems Problem Noted Date Diagnosed Date Resolved Date STAINED GLASS PAINTER demyelination 01/11/2023 01/04/2024 Prediabetes 11/14/2018 04/16/2022 Overview: Per Prediabetes protocol #1 Perforation of duodenum 07/10/201510/06 PURE HYPERCHOLESTEROLEM 04/24/200512/2008 CVA 02/03/2001 01/17/2009 Overview: Modified per CVA protocol #8 STAINED GLASS PAINTER demyelination 08/19/2000 02/18/2021 Headache 11/06/2008 Overview: ICD-10 update of inactive term LUMBAGO 11/06/2008 GENERAL OSTEOARTHROSIS 07/12 Sequela, post-stroke 009 Peanut allergy 02/23/2019 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 documented as of this encounter (statuses as of 06/20/2024) Immunizations Name Administration Dates Next Due COVID-19 [...] Notes * Telephone Encounter - Andreas [facility] - 06/20/2024 8:57 PM EDTSigned Prescriptions: Disp Refills Clopidogrel Bisulfate 75 MG Oral Tablet (p*90 Tab*2 Sig: TAKE 1 TABLET BY MOUTH EVERY DAYAuthorizing Provider: LAYO MCMILLANOrderevelina User: ANDREAS NELSON------ documented in this encounter Plan of Treatment Upcoming Encounters Date Type Department Care Team (Late st Contact Info) Description 07/05/2024 8:00 AM EDT Office Visit [place] [address] [address] Layo Mcmillan MD [address] [place] [address] 05/22/2025 10:20 AM EDT [place] [address] [place] [address] Filomena Moncada PA-C [address] [place] [address] [place] [address] Scheduled Procedures Name Priority Associated Diagnoses Date/Ti [...] as of this encounter Visit Diagnoses Diagnosis STAINED GLASS PAINTER 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 No Does the patient have Health Care Power of Attor mariusz? No Care Teams Analytics Specialist Relationship Specialty Start Date End Date February, Layo Almaguer MD [address] [place] [address] PCP - General Family Medicine 06/09/23 documented as of this encounter
--- OUTSIDE RECORDS SUMMARY | 2024-10-14 04:29 | External Medical Summary | Summary of Care ---
Author Name Unknown Organization [facility] Address [address] [place] [address] Phone [phone] Care Team Providers Care Lottery Office Manager Name Role Phone May, Layo Almaguer MD Primary Care Provider [phone] Reason for Visit * Reason Comments Outpatient Testing Encounter Details Date Type Department Care Team (Late st Contact Info) Description 05/15/2024 9:20 AM EDT Laboratory Laboratory, [facility] [address] [place] [address] [facility] [address] [place] [address] Abnormal colonoscopy Allergies Active Allergy Reactions Criticality Noted Date [...] Active Additional Information Patient taking differently: 2 [place] Nasal Daily(AM), 2 spray in each nostril [...] Clopidogrel Bisulfate 75 MG Oral Tablet (pLAVix)Indications :CHAIR TRIMMER demyelination (HCC) TAKE 1 TABLET BY MOUTH [...] Problem Noted Date Diagnosed Date Resolved Date CHAIR TRIMMER demyelination 01/11/2023 01/04/2024 Prediabetes 11/14/2018 04/16/2022 Overview: Per Prediabetes protocol #1 Perforation of duodenum 07/10/201510/06 PURE HYPERCHOLESTEROLEM 04/24/2005 0212/2008 CVA 02/03/2001 01/17/2009 Overview: Modified per CVA protocol #8 CHAIR TRIMMER demyelination 08/19/2000 02/18/2021 Headache 11/06/2008 Overview: ICD-10 [...] Description 05/15/2024 11:00 AM EDT Imaging Radiology [facility] [address] [facility] [place] [address] 07/05/2024 8:00 AM EDT Office Visit Family [facility], [place] [address] [facility] [place] [address] FebruaryLayo MD [address] [facility] [place] [address] 07/26/2024 11:25 AM EDT Office Visit Interventional Pain Center, [facility] [address] [facility] [place] [address] Jaycee Schmidt MD [address] [place] [address] [place] [address] 09/21/2024 9:20 AM EST Office Visit Gastroenterology, [facility] [address] [facility] [place] [address] Tre Fernandez MD [address] [facility] [place] [address] 05/22/2025 10:20 AM EDT Office Visit Dermatology, [place] [address] [facility] [place] [address] Filomena Moncada PA-C [address] [place] [address] [place] [address] Pending Results Name Type Priority Associated Diagnoses Date /Time CREATININE Lab Routine Abnormal colonoscopy 05/15/2024 9:25 AM EDT Scheduled Procedures Name Priority Associated [...] as of this encounter Visit Diagnoses Diagnosis Abnormal colonoscopy Nonspecific (abnormal) findings on radiological [...] Power of Attor mariusz? No Care Teams Lottery Office Manager Relationship Specialty Start Date End Date February, Layo Almaguer MD [address] [place] [address] PCP - General Family Medicine 06/09/23 documented as of this encounter
--- OUTSIDE RECORDS SUMMARY | 2024-10-14 04:29 | External Medical Summary | Summary of Care ---
Author Name Unknown Organization [facility] Address [address] [place] [address] Phone [phone] Care Team Providers Care Principle Industrial Hygienist Name Role Phone Layo Flores MD Primary Care Provider [phone] Reason for Visit * Reason Onset Date Comments Appointment 04/24/2024 Encounter Details Date Type Department Care Team (Late st Contact Info) Description 04/24/2024 Telephone [facility]O [facility], Endoscopy [address] [address] Lizet Corrigan MD [address] [place] [address] Appointment Allergies Active Allergy Reactions Criticality Noted [...] Active Additional Information Patient taking differently: 2 [place] Nasal Daily(AM), 2 spray in each nostril [...] Clopidogrel Bisulfate 75 MG Oral Tablet (pLAVix)Indicatio ns:LEATHER PRODUCTS SUPERVISOR demyelination (HCC) TAKE 1 TABLET BY MOUTH [...] Problem Noted Date Diagnosed Date Resolved Date LEATHER PRODUCTS SUPERVISOR demyelination 01/11/2023 01/04/2024 Prediabetes 11/14/2018 04/16/2022 Overview: Per Prediabetes protocol #1 Perforation of duodenum 07/10/201510/06 PURE HYPERCHOLESTEROLEM 04/24/2005 02/0 12/2008 CVA 02/03/2001 01/17/2009 Overview: Modified per CVA protocol #8 LEATHER PRODUCTS SUPERVISOR demyelination 08/19/2000 02/18/2021 Headache 11/06/2008 Overview: ICD-10 [...] with Tre in September. [place] for or [facility]. documented in this encounter Plan of Treatment Upcoming Encounters Date Type Department Care Team (Late st Contact Info) Description 07/05/2024 8:00 AM EDT Office Visit [address] [address] MayLayo MD [address] [place] [facility] [place] [address] 09/07/2024 1:30 PM EST [facility] [address] [place] [address] Josey Jacob PA-C [address] [place] [address] 05/22/2025 10:20 AM EDT Office Visit Dermatology, [place] [address] [facility] [address] Filomena Moncada PA-C [address] [place] [address] [place] [address] Scheduled Procedures Name Priority Associated Diagnoses Date/Ti [...] Power of Attor mariusz? No Care Teams Principle Industrial Hygienist Relationship Specialty Start Date End Date February, Layo Almaguer MD [address] [facility] [place] [address] PCP - General Family Medicine 06/09/23 documented as of this encounter
--- OUTSIDE RECORDS SUMMARY | 2024-10-14 04:30 | External Medical Summary | Summary of Care ---
Author Name Unknown Organization [facility] Address [address] [place] [address] Phone [phone] Care Team Providers Care Pond Worker Name Role Phone Layo Flores MD Primary Care Provider [phone] Reason for Visit * Reason Onset Date Comments Appointment 04/24/2024 Encounter Details Date Type Department Care Team (Late st Contact Info) Description 04/24/2024 Telephone ENDO [facility], Endoscopy [address] [address] Lizet Corrigan MD [address] [place] [address] Appointment Allergies Active Allergy Reactions Criticality Noted Date Comments Trevon Inhibitors 09/06/2002 Swelling in face Sulfamethoxazole-Trimeth oprim Rash 12/09/2016 Food (See Comments) 11/29/2001 Nuts: lip/throat swelling Cephalexin Other (Please comment) 12/14/2021 thrush Levofloxacin 11/03/2017 Rash on day 7 of abx Spironolactone Tachycardia 11/18/2011 Heart racing documented as of this encounter (statuses as of 04/25/2024) Medications Medication Sig Dispensed Refills Start Date End Date Status fluticasone (FLONASE) 50 MCG/ACT nasal sprayIndications:PND (post-nasal drip) 2 spray in each nostril daily 16 g 2 05/06/2020 Active Additional Information Patient taking differently: 2 [place] Nasal Daily(AM), 2 spray in each nostril daily,Indications: as needed, Reported on 04/18/2024 Ipratropium-Albutero l 20-100 MCG/ACT Inhalation Aerosol Solution Inhale by [...] on 04/18/2024 Famotidine 40 MG Oral Tablet (Pepcid)Indications: Gastroesophageal reflux disease with esophagitis Take by mouth [...] 04/18/2024 Clopidogrel Bisulfate 75 MG Oral Tablet (pLAVix)Indications: NEON TUBE BENDER demyelination (HCC) TAKE 1 TABLET BY MOUTH EVERY DAY 90 Tablet 3 08/31/2023 Active Erythromycin 2 % External Solution APPLY TO AFFECTED AREA OF FACE, 2X A DAY 60 mL 11 10/18/2023 Active Triamcinolone Acetonide 0.1 % External Cream (Aristocort)Indicati ons:Intertrigo Apply topically to affected area 2 times a day. To affected area. 15 g 5 10/18/2023 Active Albuterol Sulfate HFA 108 (90 Base) MCG/ACT Inhalation Aerosol SolutionIndications: Mild intermittent reactive airway disease without complication TAKE 2 INHALATION DOSING UNIT BY MOUTH 4 TIMES A DAY NEEDED FOR SHORTNESS OF BREATH OR WHEEZING. 18 g 1 01/04/2024 Active Montelukast Sodium 10 MG Oral Tablet (Singulair) TAKE 1 TABLET BY MOUTH EVERY DAY IN THE MORNING 90 Tablet 3 03/06/2024 Active Additional Information Patient taking differently: 10 mg Oral HS, Reported on 04/18/2024 documented as of this encounter (statuses as of 04/25/2024) Active Problems Problem Noted Date Diagnosed Date Gastroesophageal reflux disease with esophagitis 02/23/2019 Family history of colon cancer 07/12/2009 Cerebrovascular disease, arteriosclerotic, post- stroke 01/15/2009 Overview: Modified per CVA protocol #8 Tobacco use disorder 02/03/2001 HTN, goal below 140/90 08/19/2000 documented as of this encounter (statuses as of 04/25/2024) Resolved Problems Problem Noted Date Diagnosed Date Resolved Date NEON TUBE BENDER demyelination 01/11/2023 01/04/2024 Prediabetes 11/14/2018 04/16/2022 Overview: Per Prediabetes protocol #1 Perforation of duodenum 07/10/201510/06 PURE HYPERCHOLESTEROLEM 04/24/200512/2008 CVA 02/03/2001 01/17/2009 Overview: Modified per CVA protocol #8 NEON TUBE BENDER demyelination 08/19/2000 02/18/2021 Headache 11/06/2008 Overview: ICD-10 update of inactive term LUMBAGO 11/06/2008 GENERAL OSTEOARTHROSIS 07/12 Sequela, post-stroke 009 Peanut allergy 02/23/2019 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 documented as of this encounter (statuses as of 04/25/2024) Immunizations Name Administration Dates Next Due COVID-19 [...] encounter Miscellaneous Notes * Telephone Encounter - Diana Velazco OSA - 04/25/2024 9:52 AM EDT Checking with Kinga on a better day at . * Telephone Encounter - Karina Noland OSA - 04/24/2024 4:53 PM EDT ----- Message from Lizet Corrigan MD sent at 04/24/2024 3:11 PM EDT ----- Can this pt be scheduled for cscopy with EUS/ dilumen with Tre in September. [place] for or [facility]. documented in this encounter Plan of Treatment Upcoming Encounters Date Type Department Care Team (Late st Contact Info) Description 05/11/2024 3:40 PM EDT Office [facility], [place] [address] [facility] [address] Filomena Moncada PA-C [address] [place] [address] [place] [address] 05/15/2024 9:00 AM EDT Office Visit Interventional Pain Center, [facility] [address] [place] [address] Josey Jacob PA-C [address] [place] [address] 07/05/2024 8:00 AM EDT Office Visit [facility], [place] [address] [facility] [phone] Layo Flores MD [address] [facility] [id number] Health Maintenance Due Date Last Done Comments Cologuard 1997 Sigmoidoscopy 1997 Zoster Vaccines (2 of 3) 01/17/2016 11/22/2015 Fecal Occult Blood Test 07/17/2020 07/17/2019 Depression Screening 05/19/2022 05/19/2021 COVID-19 Vaccine ( season) 2023 07/13/2023, 09/04/2021, 12/09/2020, Additional history exists *BASELINE EKG FOR HTN 04/16/2024 Mammogram 04/21/2024 04/21/2023, 11/04, 06/28/2019, Additional history exists Influenza Vaccine (FLU shot) (#1) 2024 07/05/2023, 08/04/2022, 07/25/2021, Additional history exists GFR 01/16/2025 01/17/2024, 07/04, 11/09/2022, Additional history exists DXA Scan 01/18/2025 01/18/2018 Albumin/Creatinine Ratio 01/16/2027 01/17/2024 DTaP,Tdap,and Td Vaccines (3 - Td or Tdap) 11/07/2028 11/07/2018, 08/10/2008 Pneumococcal Vaccine: 65+ Years Completed 11/06/2019, 08/05/2018 Colonoscopy Discontinued 04/24/2024 Colorectal Cancer Screening Discontinued HPV (Gardasil) [...] Power of Attor mariusz? No Care Teams Pond Worker Relationship Specialty Start Date End Date February, Laoy Almaguer MD [address] [place] [address] PCP - General Family Medicine 06/09/23 documented as of this encounter
--- OUTSIDE RECORDS SUMMARY | 2024-10-14 04:30 | External Medical Summary | Summary of Care ---
Author Name Unknown Organization [facility] Address [address] [place] [address] Phone [phone] Care Team Providers Care Injection Molding Operator Name Role Phone Layo Flores MD Primary Care Provider [phone] Reason for Visit * Auth/Cert Specialty Diagnoses / Procedures Referred By Carol Ann aguilar Referred To Contact Diagnoses Special screening for malignant neoplasms, colon Special screening for malignant neoplasms, colon [Z12.11] Procedures COLONOSCOPY, DIAGNOSTIC (RECTUM) COLONOSCOPY FLEXIBLE PROXIMAL DIAGNOSTIC COLONOSCOPY FLEXIBLE PROXIMAL DIAGNOSTIC Lizet Corrigan MD [address] [place] [address] [facility] [address] [place] [address] Referral ID Status Reason Start Date Expiration Date Visits Re quested Visits Authorized [id number] Encounter Details Date Type Department Care Team (Latest Contact Info) Description 04/24/2024 12:03 PM EDT - 04/24/2024 2:47 PM EDT Hospital Encounter [facility], Endoscopy Room [facility] [address] [place] [address] Lizet Corrigan MD [address] [place] [address] Colonoscopy Discharge Disposition: Home - Self Care Allergies [...] Active Additional Information Patient taking differently: 2 [place] Nasal Daily(AM), 2 spray in each nostril [...] Clopidogrel Bisulfate 75 MG Oral Tablet (pLAVix)Indications: PERINATOLOGY PHYSICIAN demyelination (HCC) TAKE 1 TABLET BY MOUTH [...] Problem Noted Date Diagnosed Date Resolved Date 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/2024 Prediabetes 11/14/2018 04/16/2022 Overview: Per Prediabetes protocol #1 Perforation of duodenum 07/10/201510/06 PURE HYPERCHOLESTEROLEM 04/24/200512/2008 CVA 02/03/2001 01/17/2009 Overview: Modified per CVA protocol #8 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 Headache 11/06/2008 Overview: ICD-10 [...] Sign Reading Time Taken Comments Blood Pressure 171/98 04/24/2024 2:24 PM EDT Pulse 70 04/24/2024 2:24 PM EDT Temperature 36.2 C (97.2 F) 04/24/2024 2:15 PM ED T Respiratory Rate 70 04/24/2024 2:24 PM EDT Oxygen Saturation 100% 04/24/2024 2:24 PM EDT Inhaled Oxygen Concentration - - Weight 75.3 kg (166 lb) 04/18/2024 1:11 PM EDT Height 160 cm (5' 3") 04/18/2024 1:11 PM EDT Body Mass Index 29.41 04/18/2024 1:11 PM EDT documented in this encounter Functional Status Functional [...] No 07/10/2015 documented as of this encounter H&P Notes * Lizet Corrigan MD - 04/24/2024 1:30 PM EDT Endoscopy Pre-Procedure Assessment Name: Kimberlee Willams Date: 04/24/2024 Time: 1:31 PM Procedure(s): Colonoscopy; with Indication(s) of colon polyp surveillance Endoscopy Pre-Procedure Assessment: Prior to the procedure, the patient is identified. The patient's history, medications and allergieshave been reviewed. The patient is competent. The risks and benefits of the proposed procedure and the planned sedation have been discussed with the patient. All questions have been answered and informed consent for the procedure has been obtained. Prior to Admission medications Medication Sig Last Dose Discont. Montelukast Sodium 10 MG Oral Tablet (Singulair) TAKE 1 TABLET BY MOUTH EVERY DAY IN THE MORNING Patient taking differently: Take 1 Tablet by mouth at bedtime. Past Week Erythromycin 2 % External Solution APPLY TO AFFECTED AREA OF FACE, 2X A DAY Unknown Triamcinolone Acetonide 0.1 % External Cream (Aristocort) Apply topically to affected area 2 times a day. To affected area. Unknown Atenolol 50 MG Oral Tablet (Tenormin) TAKE 1 TABLET BY MOUTH EVERY DAY Patient taking differently: Take 1 Tablet by mouth at bedtime. 04/23/2024 Clopidogrel Bisulfate 75 MG Oral Tablet (pLAVix) TAKE 1 TABLET BY MOUTH EVERY DAY 04/16/2024 Famotidine 40 MG Oral Tablet (Pepcid) Take by mouth 1 Tablet in the morning. Patient taking differently: Take 1 Tablet by mouth in the morning. Past Week Pantoprazole Sodium 40 MG Oral Tablet Delayed Release (Protonix) Take by mouth 1 Tablet in the morning. Patient taking differently: Take 1 Tablet by mouth in the morning. Past Month Ipratropium-Albuterol 20-100 MCG/ACT Inhalation Aerosol Solution Inhale by mouth. Past Month Albuterol Sulfate HFA 108 (90 Base) MCG/ACT Inhalation Aerosol Solution TAKE 2 INHALATION DOSING UNIT BY MOUTH 4 TIMES A DAY NEEDED FOR SHORTNESS OF BREATH OR WHEEZING. Over 30 Days Cyclobenzaprine HCl 5 MG Oral Tablet (Flexeril) TAKE 1 TABLET BY MOUTH AT BEDTIME NEEDED Over 30Days fluticasone (FLONASE) 50 MCG/ACT nasal spray 2 spray in each nostril daily Patient taking differently: Administer 2 Sprays into nostril in the morning. 2 spray in each nostril daily. Over 30 Days Review of patient's allergies indicates: Allergen Reactions Trevon Inhibitors Swelling in face Bactrim [Sulfamethoxazole-Trimethoprim] Rash Food (See Comments) Nuts: lip/throat swelling Keflex [Cephalexin] Other (Please comment) thrush Levaquin [Levofloxacin] Rash on day 7 of abx Spironolactone Tachycardia Heart racing BP 176/74 | Pulse 76 | Temp 36.7 C (98 F) | Resp 18 | Ht 1.6 m (5' 3") | Wt 75.3 kg (166 lb) | SpO2 98% | BMI 29.41 kg/m | BSA 1.83 m Physical Exam: Mental Status Examination: alert and oriented. Airway Examination: normal oropharyngeal airway and neck mobility. Respiratory Examination: clear to auscultation. CV Examination: normal. ASA Grade: III - A patient with severe systemic disease. Abdomen: negative This patient has undergone a preprocedural evaluation. A determination has been made to proceed with the planned procedure under [facility] procedural guidelines and the [facility] Non-Emergent, Elective Medical Services and Treatment Recommendations (published on 01-09-20). The community and hospital prevalence of COVID-19 has been discussed as well as this patient's specific risks associated with SARS-CoV-19 infection. Based upon the clinical acuity and patient-specific care considerations, this procedure is deemed a Tier II - Intermediate acuity treatment or service with either progression or the threat of progressive disease related to the delay in treatment. Not providing the service has the potential for increasing morbidity or mortality. After reviewing the risks and benefits, the patient is deemed in satisfactory condition to undergo the procedure. The anesthesia plan is to use general anesthesia. Lizet Corrigan MD 04/24/2024 documented in this encounter Procedure Notes * Layo Flores MD - 04/24/2024 1:44 PM EDTAssociated Order(s): COLONOSCOPY [facility] Patient Name: Kimberlee Willams Procedure Date: 04/24/2024 1:44 PM Date of : 1950 Admit Type: Outpatient Note Status: Finalized Date of : 1950 Admit Type: Outpatient Age: 73 Room: [facility] 3 Gender: Female Note Status: Finalized Procedure: Colonoscopy Indications: Screening for colorectal malignant neoplasm Providers: Lizet Corrigan MD (Doctor) Referring MD: Layo Flores (Referring MD) Medicines: See the Anesthesia note for documentation of the administered medications Complications: No immediate complications. Procedure: Pre-Anesthesia Assessment: - ASA Grade Assessment: II - A patient with mild systemic disease. - Prior to the procedure, a History and Physical was performed, and patient medication allergies have been reviewed. The patient's tolerance of previous anesthesia has been reviewed. - Respiratory Examination: clear to auscultation. - CV Examination: normal. - The risks and benefits of the procedure and the sedation options and risks were discussed with the patient. All questions were answered and informed consent was obtained. - Patient identification and proposed procedure were verified prior to the procedure by the physician, the nurse and the business process architect. The procedure was verified in the pre-procedure area in the procedure room. - The medication list for this patient has been reviewed prior to the procedure and has been determined that the patient may proceed with the planned study. Any medication changes made as a result of the findings of this procedure have been discussed with the patient and/or territory representative at the time of discharge from the facility. After I obtained informed consent, the scope was passed under direct vision. All instruments were visually inspected immediately before and after removal from the patient to ensure they are fully intact. Throughout the procedure, the patient's blood pressure, pulse, and oxygen saturations were monitored continuously. The colonoscopy was performed without difficulty. The patient tolerated the procedure well. The [id number] Colonoscope ([id number]) was introduced through the anus and advanced to the terminal ileum. The quality of the bowel preparation was good. Findings & Specimens: The perianal and digital rectal examinations were normal. Multiple small and large-mouthed diverticula were found in the sigmoid colon. There was a 1 cm bulge at the hepatic flexure that felt firm to probing. This appeared likely due to extrinsic compression. The exam was otherwise without abnormality. Recommendation: Discharge pt home. Consider Dilumen assisted EUS vs CT vs surveillance for evaluation of bulge at . Lizet Corrigan MD 04/24/2024 2:24:40 PM This report has been signed electronically. documented in this encounter Nursing Notes * Araceli Chakraborty RN - 04/24/2024 2:35 PM EDT Patient is alert, pain free, passing flatus and tolerating po fluids prior to discharge. Patient has been visited by Dr. Corrigan. Patient has received and demonstrates understanding of discharge instructions. Patient is transported via w/c to private auto accompanied by endo staff. * Araceli Chakraborty RN - 04/24/2024 2:[address] Corrigan in with pt discussing results of procedure. * Araceli Chakraborty RN - 04/24/2024 2:32 PM EDT D/C instructions given to pt, verbalized understanding. * Araceli Chakraborty RN - 04/24/2024 2:13 PM EDT Pt declined PO fluids, sitting up resting comfortably. * Araceli Chakraborty RN - 04/24/2024 2:09 PM EDT Received pt, awake, VSS, CM shows NSR. Report given by La HUBBARD. * Joanna Mathews RN - 04/24/2024 2:03 PM EDT Mid abdominal pressure given per Dr. Corrigan to assist with scope advancement. Pt tolerated well See anesthesia record for medication administered during procedure. Joanna Mathews RN Post-procedure scope cleaning began at bedside by endo asbestos abatement technician Pt. Tolerated colonoscopy well, no complications, soundly asleep, abdomen soft, transported to postendoscopy via stretcher by HAYDEE. * Nicol Dukes RN - 04/24/2024 1:24 PM EDT The following pt discharge instructions reviewed with pt prior to prodedure: No driving today. No alcohol today. No signing of legal documents. Rest as much as possible today and can return to normal activities tomorrow. No operating any heavy equipment today. Diet as tolerated. Pt verbalized understanding. documented in this encounter Plan of Treatment Upcoming Encounters Date Type Department Care Team (Late st Contact Info) Description 05/11/2024 3:40 PM EDT Office Visit Dermatology, [place] [address] [facility] [place] [address] Filomena Moncada PA-C [address] [place] [address] [place] [address] 05/15/2024 9:00 AM EDT Office Visit Interventional Pain Center, [facility] [address] [facility] [place] [address] Josey Jacob PA-C [address] [facility] [place] [address] 07/05/2024 8:00 AM EDT Office Visit Family Practice, [place] [address] [facility] [place] [id number] FebruaryLayo MD [address] [place] [address] Health Maintenance Due Date Last Done Comments [...] Procedure Name Priority Date/Time Associated Diagnosis Comments COLONOSCOPY 04/24/2024 1:44 PM EDT documented in this encounter Results * COLONOSCOPY (04/24/2024 1:44 PM EDT) 04/24/2024 1:44 PM EDT Narrative Procedure Note Layo Flores MD - 04/24/2024 1:44 PM EDT [facility] Patient Name: Kimberlee Willams Procedure Date: 04/24/2024 1:44 PM Date of : 1950 Admit Type: Outpatient Note Status:Finalized Date of : 1950 Admit Type: Outpatient Age: 73 Room: [facility] 3 Gender: Female Note Status: Finalized Procedure: Colonoscopy Indications: Screening for colorectal malignant neoplasm Providers: Lizet Corrigan MD (Doctor) Referring MD: Layo Flores (Referring MD) Medicines: See the Anesthesia note for documentation of theadministered medications Complications: No immediate complications. Procedure: Pre-Anesthesia Assessment: - ASA Grade Assessment: II - A patient with mildsystemic disease. - Prior to the procedure, a History and Physicalwas performed, and patient medication allergies have been reviewed. Thepatient's tolerance of previous anesthesia has been reviewed. - Respiratory Examination: clear to auscultation. - CV Examination: normal. - The risks and benefits of the procedure and thesedation options and risks were discussed with the patient. All questions wereanswered and informed consent was obtained. - Patient identification and proposed procedurewere verified prior to the procedure by the physician, the nurse and the business process architect.The procedure was verified in the pre-procedure area in the procedure room. - The medication list for this patient has beenreviewed prior to the procedure and has been determined that the patient may proceedwith the planned study. Any medication changes made as a result of the findingsof this procedure have been discussed with the patient and/or territory representative atthe time of discharge from the facility. After I obtained informed consent, the scope waspassed under direct vision. All instruments were visually inspected immediatelybefore and after removal from the patient to ensure they are fully intact. Throughout the procedure, the patient's bloodpressure, pulse, and oxygen saturations were monitored continuously. The colonoscopy wasperformed without difficulty. The patient tolerated the procedure well. The [id number] ([id number]) was introduced through the anus and advanced to theterminal ileum. The quality of the bowel preparation was good. Findings & Specimens: The perianal and digital rectal examinations were normal. Multiple small and large-mouthed diverticula were found in thesigmoid colon. There was a 1 cm bulge at the hepatic flexure that felt firm toprobing. This appeared likely due to extrinsic compression. The exam was otherwise without abnormality. Recommendation: Discharge pt home. Consider Dilumen assisted EUS vsCT vs surveillance for evaluation of bulge at . Lizet Corrigan MD 04/24/2024 2:24:40 PM This report has been signed electronically. Layo Flores MD [facility] documented in this encounter Administered Medications Inactive Administered Medications - up to 3 most recent administrations Medication Order MAR Action Action Date Dose Rate Site Acetaminophen (Tylenol) tab 650 mg 650 mg, Oral, PRN Pain, Mild, Starting on Wed04/24/24 at 1417, Until Wed04/24/24 at 1847, For 1 dose, Maximum of 4 grams (4000 mg) per day., Post-op isolyte-S pH 7.4 infusion Intravenous, at 100 mL/hr, Plasma-LYTE 148, isolyte-S, and isolyte-S pH 7.4 are considered equivalent - including for MAR barcode scanning., CONTINUOUS, Starting on Wed04/24/24 at 1400, Until Wed04/24/24 at 1847, Pre-Op Continue from Pre-Op 04/24/2024 2:00 PM EDT 100 mL/hr New Bag 04/24/2024 2:00 PM EDT 100 mL/hr documented in this encounter Active and Recently Administered Medications Times are shown in EDT. Continuous Medication Order 04/22/2024 04/23/2024 04/24/2024 isolyte-S pH 7.4 infusion Intravenous, at 100 mL/hr, Plasma-LYTE 148, isolyte-S, and isolyte-S pH 7.4 are considered equivalent - including for MAR barcode scanning., CONTINUOUS, Starting on Wed04/24/24 at 1400, Until Wed04/24/24 at 1847, Pre-Op 1400 (New Bag - Prov ider: Nicol Dukes RN)1400 (Continue from Pre-Op - Provider: Joi Grubbs CRNA)1413 (Anes Intra-Op Fluid - Provider: Joi Grubbs CRNA) PRN Medication Order 04/22/2024 04/23/2024 04/24/2024 Acetaminophen (Tylenol) tab 650 mg 650 mg, Oral, PRN Pain, Mild, Starting on Wed04/24/24 at 1417, Until Wed04/24/24 at 1847, For 1 dose, Maximum of 4 grams (4000 mg) per day., Post-op documented in this encounter Advance Directives * Full Code (Latest Code Status on File) Date Activated Date Inactivated Comments 07/09/2015 11:15 PM 07/23/2015 2:52 PM Question Answer Comments Discussion of Advance Directives occurred with: Not Discussed Does the patient have a Living Will? No Does the patient have Health Care Power of Attor mariusz? No Care Teams Injection Molding Operator Relationship Specialty Start Date End Date February, Layo Almaguer MD [address] [place] [address] PCP - General Family Medicine 06/09/23 documented as of this encounter
--- OUTSIDE RECORDS SUMMARY | 2024-10-14 04:30 | External Medical Summary | Summary of Care ---
Author Name Unknown Organization [facility] Address [address] [facility] [place] [address] Phone [phone] Care Team Providers Care Sewage Disposal Worker Name Role Phone Layo Flores MD Primary Care Provider [phone] Reason for Visit * Reason Onset Date Comments Appointment 04/24/2024 Encounter Details Date Type Department Care Team (Late st Contact Info) Description 04/24/2024 Telephone ENDO [facility], Endoscopy [address] [address] Lizet Corrigan MD [address] [place] [address] Appointment Allergies Active Allergy Reactions Criticality Noted [...] Active Additional Information Patient taking differently: 2 [place] Nasal Daily(AM), 2 spray in each nostril [...] Clopidogrel Bisulfate 75 MG Oral Tablet (pLAVix)Indications: FRONT MAKER LOCKSTITCH demyelination (HCC) TAKE 1 TABLET BY MOUTH [...] Problem Noted Date Diagnosed Date Resolved Date FRONT MAKER 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 [place] for or [facility]. documented in this encounter Plan of Treatment Upcoming Encounters Date Type Department Care Team (Late st Contact Info) Description 05/11/2024 3:40 PM EDT [place] [address] [facility] [place] [address] Filomena Moncada PA-C [address] [place] [address] [place] [address] 05/15/2024 9:00 AM EDT Office Visit Interventional Pain Center, [facility] [address] [address] Josey Jacob PA-C [address] [place] [address] 07/05/2024 8:00 AM EDT Office Visit [facility] [address] [place] [facility] [place] [address] May, Layo Almaguer MD [address] [facility] [place] [phone] Health Maintenance Due Date Last Done Comments [...] Power of Attor mariusz? No Care Teams Sewage Disposal Worker Relationship Specialty Start Date End Date February, Layo Almaguer MD [address] [place] [address] PCP - General Family Medicine 06/09/23 documented as of this encounter
--- OUTSIDE RECORDS SUMMARY | 2024-10-14 04:30 | External Medical Summary | Summary of Care ---
Author Name Unknown Organization [facility] Address [address] [place] [address] Phone [phone] Care Team Providers Care Stitcher Tape Controlled Machine Name Role Phone May, Jorge Almaguer MD Primary Care Provider [phone] Reason for Visit * Reason Comments Follow Up Lesion mid chest Encounter Details Date Type Department Care Team (Late st Contact Info) Description 05/11/2024 3:40 PM EDT [facility] [address] [place] [address] Filomena Moncada PA-C [address] [place] [address] [place] [address] Seborrheic keratosis*; Kearns angioma Allergies Active Allergy Reactions Criticality Noted Date Comments Trevon Inhibitors 09/06/2002 Swelling in face Sulfamethoxazole-Trimeth oprim Rash 12/09/2016 Food (See Comments) 11/29/2001 Nuts: lip/throat swelling Cephalexin Other (Please comment) 12/14/2021 thrush Levofloxacin 11/03/2017 Rash on day 7 of abx Spironolactone Tachycardia 11/18/2011 Heart racing documented as of this encounter (statuses as of 05/11/2024) Medications Medication Sig Dispensed Refills Start Date End Date Status fluticasone (FLONASE) 50 MCG/ACT nasal sprayIndications:P ND (post-nasal drip) 2 spray in each nostril daily 16 g 2 05/06/2020 Active Additional Information Patient taking differently: 2 [place] Nasal Daily(AM), 2 spray in each nostril [...] on 04/18/2024 Famotidine 40 MG Oral Tablet (Pepcid)Indication s:Gastroesophageal [...] 04/18/2024 Clopidogrel Bisulfate 75 MG Oral Tablet (pLAVix)Indication s:BLUEPRINT DUPLICATOR demyelination (HCC) TAKE 1 TABLET BY MOUTH [...] intermittently when needed 80 g 05/11/2024 Active Triamcinolone Acetonide 0.1 % External Cream (Aristocort)Indica tions:Intertrigo Apply topically to affected area 2 times a day. To affected area. 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 01/04/2024 Prediabetes 11/14/2018 04/16/2022 Overview: Per Prediabetes protocol #1 Perforation of duodenum 07/10/201510/06 PURE HYPERCHOLESTEROLEM 04/24/200512/2008 CVA 02/03/2001 01/17/2009 Overview: Modified per CVA protocol #8 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 Wiggle knot and if does not come loose, then snip stitch on 1 side of knot. CHANGE DRESSING ONCE DAILY 1. Wash hands and remove the original dressing(s) in 12-24 hours. 2. Gently clean wound(s) with soap and water. Rinse with water and pat the wound dry. 3. Apply a thin layer of Vaseline ointment with a Q-tip. 4. Cover with a bandage if area(s) is not on the face or scalp. A dressing is not required on the face or scalp. Use non-adherent dressing and paper tape if you are sensitive to band-aid adhesive sensitive. * Place dressing on site for 2 weeks, until healed. NOTE: Lower legs always take at least 1 monthto heal (can be more depending on other medical conditions). *If going swimming, please place waterproof bandage on top of wound site WHAT TO EXPECT AFTER BIOPSY or EXCISION: 1. Swelling and redness may occur around the wound for several days. If the procedure(s) was aroundthe eye, skin around the eyes is often quite swollen and discolored for several days. 2. Shave biopsy sites will have a yellow fibrous center and red rim surrounding it. 3. Drainage is to be expected. The drainage may be yellow-green and have a slight odor. As long as the wound itself is healing, you do not have to be concerned about the drainage. 4. If bleeding occurs, apply FIRM CONSTANT PRESSURE to the dressing with fingertips and a dry, clean wash cloth for 20 - 30 minutes. No peeking to see if bleeding has stopped. 5. If you have any concerns about the healing wound, please either or our main Dermatology office in [place] at [phone]. If an emergency, please go to your nearest Emergency Department. documented in this encounter Progress Notes * Filomena Moncada PA-C - 05/11/2024 3:40 PM EDT SUBJECTIVE: History of Present Illness: Kimberlee Willams is a 73 year old female seen today for follow up of lesion. Previous appointment date: 12/28/2023 Last attempted treatments include: bx x 1 (SK) Full skin exam 12/25 (on 2 yr cycle) Lesion on chest, present since after last visit in December. Has had serous drainage and itchy and irritated before and would like to have off. Lesons under breasts become very itchy intermittently and would like a cream to help with itch. 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 REVIEW OF SYSTEMS: SKIN: No other new or changing moles. HEME/LYMPH: No new or enlarging lumps or bumps. CONSTITUTIONAL: No nausea, vomiting, fevers, chills, diarrhea. No recent unintended weight loss, night sweats, appetite or malaise. RESP: negative MSK/EXT: Negative or as per HPI GI: negative CV: Negative or as per HPI Rest of systems are negative or as per HPI SKIN CANCER HX: NONE Reviewed, same day as visit, 0 [facility] Dermatology lab work(s)/pathology report(s) as well as those sent by referring provider prior to seeing pt. MEDICA TIONS: Current Outpatient Medications Medication Sig Dispense Refill [...] MOUTH AT BEDTIME NEEDED 15 Tablet 0 Pantoprazole Sodium 40 MG Oral Tablet Delayed Release (Protonix) Take by mouth 1 Tablet in the morning. (Patient taking differently: Take 1 Tablet by mouth in the morning.) 90 Tablet 0 Famotidine 40 MG Oral Tablet (Pepcid) Take by mouth 1 Tablet in the morning. (Patient taking differently: Take 1 Tablet by mouth in the morning.) 90 Tablet 1 Atenolol 50 MG Oral Tablet (Tenormin) TAKE 1 TABLET BY MOUTH EVERY DAY (Patient taking differently:Take 1 Tablet by mouth at bedtime.) 90 Tablet 3 Clopidogrel Bisulfate 75 MG Oral Tablet (pLAVix) TAKE 1 TABLET BY MOUTH EVERY DAY 90 Tablet 3 Erythromycin 2 % External Solution APPLY TO AFFECTED AREA OF FACE, 2X A DAY 60 mL 11 Triamcinolone Acetonide 0.1 % External Cream (Aristocort) Apply topically to affected area 2 times a day. To affected area. 15 g 5 Albuterol Sulfate HFA 108 (90 Base) MCG/ACT Inhalation Aerosol Solution TAKE 2 INHALATION DOSING UNIT BY MOUTH 4 TIMES A DAY NEEDED FOR SHORTNESS OF BREATH OR WHEEZING. 18 g 1 Montelukast Sodium 10 MG Oral Tablet (Singulair) TAKE 1 TABLET BY MOUTH EVERY DAY IN THE MORNING (Patient taking differently: Take 1 Tablet by mouth at bedtime.) 90 Tablet 3 No current facility-administered medications for this visit. ALLERG IES: Trevon inhibitors, Bactrim [sulfamethoxazole-trimethoprim], Food (see comments), Keflex [cephalexin], Levaquin [levofloxacin], and Spironolactone OBJECT SHELLY: GEN: alert, no distress, appears oriented, pleasant, and cooperative. SKIN: Detailed exam of chest completed: 1A. L medial breast-6x8mm variegated brown adherent papule with superior non blanchable red-purple 2mm papule. ASSESS MENT/PLAN: 1. 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 The procedure, risks including but not limited to; (scarring, bleeding, infection, pain, and bruising), benefits, alternatives and expected outcomes were discussed with the patient, and obtained verbal consent from pt. Time out called. Patient identified, procedure verified, site identified and verified. Patient and staff present in agreement. Area prepped with alcohol and anesthetized using 1cc of 0.5% lidocaine with epinephrine at 1:200,000 concentration. Shave of lesion performed. 20% AlCl and bandaging applied. Specimen sent to pathology. Patient instructed in routine post-op care. -triamcinolone 0.1% cream to use prn for intermittent irritation and itch from SKs. Patient alone today. Photo(s) of #1 taken, pt verbally consented to having photo(s) taken. Follow-up: 08/28 for full skin exam Contact patient via [facility] Applicable photos (if any) and chart reviewed by Dr. Amaury Robison. Presumed diagnoses, expected natural histories, and management options discussed with the patient at length. Questions were addressed and anticipatory guidance provided. They were instructed to contact me if additional questions, concerns, or problems develop in the interim. -There were no barriers to learning and no other pain was related to today's visit. The patient and/or person accompanying patient demonstrates understanding of the visit and treatment. Filomena Moncada PA-C 05/11/2024 9:38 AM Ref: JORGE MCMILLAN[[id number]] [address] [place], [place] [id number] (office) [phone] (fax) PCP: JORGE MCMILLAN [address] [place] [address] [phone] documented in this encounter Nursing Notes * Jade Chavis LPN - 05/11/2024 3:27 PM EDT Patient identified by full name and date of . Chief Complaint Patient presents with Follow Up Lesion mid chest documented in this encounter Plan of Treatment Upcoming Encounters Date Type Department Care Team (Late st Contact Info) Description 05/15/2024 9:00 AM EDT Office Visit [facility], [address] [place] [address] Josey Jacob PA-C [address] [place] [address] 05/15/2024 11:00 AM EDT Imaging Radiology [facility] [address] [facility] [place] [address] 07/05/2024 8:00 AM EDT Office Visit Family Practice, [place] [address] [place] [facility] [place] [place] [address] FebruaryJorge MD [address] [place] [address] 09/21/2024 9:20 AM EST Office Visit Gastroenterology, [facility] [address] [facility] [place] [address] Tre Fernandez MD [address] [place] [address] 05/22/2025 10:20 AM EDT Office Visit Dermatology, [place] [address] [place] [facility] [place] [address] Filomena Moncada PA-C [address] [place] [address] [place] [address] Pending Results Name Type Priority Associated Diagnoses Date /Time SURGICAL PATHOLOGY Pathology Routine Seborrheic keratosis Kearns angioma 05/11/2024 3:50 PM EDT Scheduled Procedures Name Priority Associated Diagnoses [...] interpreted or resulted by a [facility] or [facility] contracted radiologist. Filomena Moncada PA-C RADIOLOGY ([facility]) documented in this encounter Visit Diagnoses Diagnosis Seborrheic keratosis- Primary Other seborrheic keratosis Kearns angioma Nevus, non-neoplastic documented in this encounter Advance Directives * Full Code (Latest Code Status on File) Date Activated Date Inactivated Comments 07/09/2015 11:15 PM 07/23/2015 2:52 PM Question Answer Comments Discussion of Advance Directives occurred with: Not Discussed Does the patient have a Living Will? No Does the patient have Health Care Power of Attor mariusz? No Care Teams Stitcher Tape Controlled Machine Relationship Specialty Start Date End Date February, Jorge Almaguer MD [address] [place] [address] PCP - General Family Medicine 06/09/23 documented as of this encounter
--- OUTSIDE RECORDS SUMMARY | 2024-10-14 04:30 | External Medical Summary | Summary of Care ---
Author Name Unknown Organization [facility] Address [address] [place] [address] Phone [phone] Care Team Providers Care Welding Setter Name Role Phone May, Layo Almaguer MD Primary Care Provider [phone] Reason for Visit * Reason Comments Follow Up Lesion mid chest Encounter Details Date Type Department Care Team (Late st Contact Info) Description 05/11/2024 3:40 PM EDT [facility] [address] [place] [address] Filomena Moncada PA-C [address] [place] [address] [place] [address] Seborrheic keratosis*; Larose angioma Allergies Active Allergy Reactions Criticality Noted [...] Active Additional Information Patient taking differently: 2 [place] Nasal Daily(AM), 2 spray in each nostril [...] Clopidogrel Bisulfate 75 MG Oral Tablet (pLAVix)Indication s:ARCHIVIST ECONOMIC HISTORY demyelination (HCC) TAKE 1 TABLET BY MOUTH [...] Problem Noted Date Diagnosed Date Resolved Date ARCHIVIST ECONOMIC HISTORY demyelination 01/11/2023 01/04/2024 Prediabetes 11/14/2018 04/16/2022 Overview: Per Prediabetes protocol #1 Perforation of duodenum 07/10/201510/06 PURE HYPERCHOLESTEROLEM 04/24/200512/2008 CVA 02/03/2001 01/17/2009 Overview: Modified per CVA protocol #8 ARCHIVIST ECONOMIC HISTORY demyelination 08/19/2000 02/18/2021 Headache 11/06/2008 Overview: ICD-10 [...] either or our main Dermatology office in [place] at [phone]. If an emergency, please go to your nearest Emergency Department. documented in this encounter Progress Notes * Amaury Robison MD - 05/12/2024 9:16 AM EDT I have seen and examined the patient via teledermatology review of chart note and photos with Filomena Moncada PA-C. I have reviewed and agree with the assessment and plan. * Filomena Moncada PA-C - 05/11/2024 3:40 [...] like a cream to help with itch. 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 REVIEW OF SYSTEMS: SKIN: No [...] NONE Reviewed, same day as visit, 0 [facility] Dermatology lab work(s)/pathology report(s) as well as [...] papule. ASSESS MENT/PLAN: 1. SK with superior larose angioma on L medial breast-Shave removal of [...] for full skin exam Contact patient via [employer] Applicable photos (if any) and chart reviewed [...] Filomena Moncada PA-C 05/11/2024 9:38 AM Ref: LAYO MCMILLAN[[id number]] [address] [facility] [address] (office) [phone] (fax) PCP: LAYO [facility]CMILLAN [address] [facility] [address] [phone] documented in this encounter Nursing Notes * Jade Chavis LPN - 05/11/2024 3:27 PM EDT Patient identified by full name and date of . Chief Complaint Patient presents with Follow Up Lesion mid chest documented in this encounter Plan of Treatment Upcoming Encounters Date Type Department Care Team (Late st Contact Info) Description 05/15/2024 9:00 AM EDT Office Visit Interventional Pain Center, [facility] [address] [facility] [place] [address] Josey Jacob PA-C [address] [facility] [place] [address] 05/15/2024 11:00 AM EDT Imaging Radiology [facility] 1st [facility] [address] [facility] [place] [address] 07/05/2024 8:00 AM EDT Office [facility] [place] [address] [facility] [address] Layo Mcmillan MD [address] [facility] [address] 09/21/2024 9:20 AM EST Office Visit Gastroenterology, [facility] [address] [facility] [place] [address] Tre Fernandez MD [address] [facility] [place] [address] 05/22/2025 10:20 AM EDT Office Visit Dermatology, [place] [address] [facility] [place] [address] Filomena Moncada PA-C [address] [place] [address] [place] [address] Pending Results Name Type Priority Associated Diagnoses Date /Time SURGICAL PATHOLOGY Pathology Routine Seborrheic keratosis Larose angioma 05/11/2024 3:50 PM EDT Scheduled Procedures [...] study not interpreted or [facility]. Filomena Moncada PA-C RADIOLOGY ([facility]) documented in this encounter Visit Diagnoses Diagnosis Seborrheic keratosis- Primary Other seborrheic keratosis Larose angioma Nevus, non-neoplastic documented in this encounter Advance Directives * Full Code (Latest Code Status on File) Date Activated Date Inactivated Comments 07/09/2015 11:15 PM 07/23/2015 2:52 PM Question Answer Comments Discussion of Advance Directives occurred with: Not Discussed Does the patient have a Living Will? No Does the patient have Health Care Power of Attor mariusz? No Care Teams Welding Setter Relationship Specialty Start Date End Date February, Layo Almaguer MD [address] [facility] [place] [address] PCP - General Family Medicine 06/09/23 documented as of this encounter
--- OUTSIDE RECORDS SUMMARY | 2024-10-14 04:30 | External Medical Summary | Summary of Care ---
Author Name Unknown Organization [facility] Address [address] [place] [place] [address] Phone [phone] Care Team Providers Care Belt Molder Name Role Phone Layo Flores MD Primary Care Provider [phone] Reason for Visit * Reason Onset Date Comments Appointment 04/24/2024 Encounter Details Date Type Department Care Team (Late st Contact Info) Description 04/24/2024 Telephone ENDO [facility], Endoscopy [address] [address] Lizet Corrigan MD [address] [place] [address] Appointment Allergies Active Allergy Reactions Criticality Noted Date Comments Trevon Inhibitors 09/06/2002 Swelling in face Sulfamethoxazole-Trimeth oprim Rash 12/09/2016 Food (See Comments) 11/29/2001 Nuts: lip/throat swelling Cephalexin Other (Please comment) 12/14/2021 thrush Levofloxacin 11/03/2017 Rash on day 7 of abx Spironolactone Tachycardia 11/18/2011 Heart racing documented as of this encounter (statuses as of 04/24/2024) Medications Medication Sig Dispensed Refills Start Date End Date Status fluticasone (FLONASE) 50 MCG/ACT nasal sprayIndications:PND (post-nasal drip) 2 spray in each nostril daily 16 g 2 05/06/2020 Active Additional Information Patient taking differently: 2 [place] Nasal Daily(AM), 2 spray in each nostril [...] Clopidogrel Bisulfate 75 MG Oral Tablet (pLAVix)Indications: DRUPAL DEVELOPER demyelination (HCC) TAKE 1 TABLET BY MOUTH [...] as of this encounter (statuses as of 04/24/2024) Active Problems Problem Noted Date Diagnosed Date Gastroesophageal reflux disease with esophagitis 02/23/2019 Family history of colon cancer 07/12/2009 Cerebrovascular disease, arteriosclerotic, post- stroke 01/15/2009 Overview: Modified per CVA protocol #8 Tobacco use disorder 02/03/2001 HTN, goal below 140/90 08/19/2000 documented as of this encounter (statuses as of 04/24/2024) Resolved Problems Problem Noted Date Diagnosed Date Resolved Date DRUPAL DEVELOPER demyelination 01/11/2023 01/04/2024 Prediabetes 11/14/2018 04/16/2022 Overview: Per Prediabetes protocol #1 Perforation of duodenum 07/10/201510/06 PURE HYPERCHOLESTEROLEM 04/24/200512/2008 CVA 02/03/2001 01/17/2009 Overview: Modified per CVA protocol #8 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 OK for [facility] or [place]. documented in this encounter Plan of Treatment Upcoming Encounters Date Type Department Care Team (Late st Contact Info) Description 05/11/2024 3:40 PM EDT Office Visit Dermatology, [place] [address] [place] [facility] [place] [address] Filomena Moncada PA-C [address] [place] [address] [place] [address] 05/15/2024 9:00 AM EDT Office Visit Interventional Pain Center, [facility] [address] [facility] [place] [address] Josey Jacob PA-C [address] [facility] [place] [address] 07/05/2024 8:00 AM EDT Office Visit Family [facility] [address] [place] [facility] [place] [id number] FebruaryLayo MD [address] [place] [address] Scheduled Procedures Name Priority Associated Diagnoses Date/Ti me COLONOSCOPY FLEXIBLE PROXIMAL DIAGNOSTIC Special screening for malignant neoplasms, colon 04/24/2024 1:43 PM EDT Health Maintenance Due Date Last Done Comments [...] Power of Attor mariusz? No Care Teams Belt Molder Relationship Specialty Start Date End Date February, Layo Almaguer MD [address] [place] [address] PCP - General Family Medicine 06/09/23 documented as of this encounter
--- OUTSIDE RECORDS SUMMARY | 2024-10-14 04:31 | External Medical Summary | Summary of Care ---
Author Name Unknown Organization [facility] Address [address] [facility] [facility] [address] Phone [phone] Care Team Providers Care Senior Group Manager Name Role Phone Layo Flores MD Primary Care Provider [phone] Reason for Visit * Reason Onset Date Comments Pre Op Discussion 04/18/2024 Encounter Details Date Type Department Care Team (Late st Contact Info) Description 04/18/2024 Telephone OR [facility], Operating Room [facility] [address] [place] [id number] Lizet Corrigan MD [address] [place] [address] Pre Op Discussion Allergies Active Allergy Reactions Criticality Noted Date [...] Active Additional Information Patient taking differently: 2 [place] Nasal Daily(AM), 2 spray in each nostril [...] Clopidogrel Bisulfate 75 MG Oral Tablet (pLAVix)Indications: CARE ASSOCIATE demyelination (HCC) TAKE 1 TABLET BY MOUTH [...] Problem Noted Date Diagnosed Date Resolved Date CARE ASSOCIATE demyelination 01/11/2023 01/04/2024 Prediabetes 11/14/2018 04/16/2022 Overview: Per Prediabetes protocol #1 Perforation of duodenum 07/10/201510/06 PURE HYPERCHOLESTEROLEM 04/24/2005 0212/2008 CVA 02/03/2001 01/17/2009 Overview: Modified per CVA protocol #8 CARE ASSOCIATE demyelination 08/19/2000 02/18/2021 Headache 11/06/2008 Overview: ICD-10 [...] encounter Miscellaneous Notes * Telephone Encounter - Leonela Hernandez RN - 04/18/2024 10:24 AM EDT Called patient for pre anesthesia evaluation for upcoming procedure ,no answer. Left message on machine /request return call documented in this encounter Plan of Treatment Upcoming Encounters Date Type Department Care Team (Late st Contact Info) Description 05/11/2024 3:40 PM EDT Office Visit Dermatology, [address] [address] Filomena Moncada PA-C [address] [place] [address] [place] [id number] 05/15/2024 9:00 AM EDT Office Visit [facility], [facility] [address] [facility] [address] Josey Jacob PA-C [address] [facility] [place] [address] 07/05/2024 8:00 AM EDT Office Visit [facility] [address] [place] [address] FebruaryLayo MD [address] [place] [address] Scheduled Orders Name Type Priority Associated Diagnoses Orde r Schedule COLONOSCPOY E/ ENDOSCOPIC US Procedures Routine Submucosal colonic lesion Benign neoplasm of ascending colon Ordered: 04/24/2024 Scheduled Procedures Name Priority Associated Diagnoses Date/Ti [...] as of this encounter Visit Diagnoses Diagnosis Submucosal colonic lesion- Primary Other specified disorder of intestines Benign neoplasm of ascending colon Benign neoplasm of colon documented in this encounter Advance Directives * Full Code (Latest Code Status on File) Date Activated Date Inactivated Comments 07/09/2015 11:15 PM 07/23/2015 2:52 PM Question Answer Comments Discussion of Advance Directives occurred with: Not Discussed Does the patient have a Living Will? No Does the patient have Health Care Power of Attor mariusz? No Care Teams Senior Group Manager Relationship Specialty Start Date End Date February, Layo Almaguer MD [address] [place] [address] PCP - General Family Medicine 06/09/23 documented as of this encounter
--- NOTE | 2024-10-14 05:29 | History & Physical Report ---
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 Since evening she noticed severe left flank pain associated with nausea and vomited couple of times and came to the ER. Imaging studies showed 2 mm left ureteral stone with mild hydronephrosis. P atient had chills but no fevers. No burning micturition. No hematuria. Normal bowel movements. Denies any chest pain or shortness of breath. No cough. No headache. No runny nose or sore throat. Acute left flank pain Left renal colic CT scan showing 2 mm calculus in the distal left ureter located 1 cm of the ureterovesical junction with mild left hydronephrosis and hydroureter. IV fluids, n.p.o., IV Dilaudid as needed Urology consult Close monitor Hypertensive urgency Required couple dose of labetalol and 1 dose of hydralazine Will continue home atenolol Monitor in PCU Echo IV labetalol as needed for now Consult cardiology in a.m. for further recommendations History of CVA On Plavix GERD On Protonix and famotidine Tobacco use Counseling DVT prophylaxis SCDs for now Disposition Telemetry Full code. 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 Since evening she noticed severe left flank pain associated with nausea and vomited couple of times and came to the ER. Imaging studies showed 2 mm left ureteral stone with mild hydronephrosis. Patient had chills but no fevers. No burning micturition. No hematuria. Normal bowel movements. Denies any chest pain or shortness of breath. No cough. No headache. No runny nose or sore throat. Past medical history.. As mentioned above Past surgical history. Colonoscopy. EGD. Exploratory laparotomy. Cholecystectomy. Removal of partial stomach. Tube jejunostomy for feeding Social history. Smokes 0.5 pack a day for 38 years. No alcohol use. No drug use. Family history. Father of heart conditions late 60s. Mother had diabetes. Hypertension. Brother has coronary disease. Brother had cancer. Brother has diabetes. Brother had CVA Allergies Allergy/AdvReac Type Severity Reaction Status Date / Time spironolactone Allergy Mild RAPID HR Verified 10/13/24 23:59 AND SOB SUN Inhibitors Allergy Unknown SWELLING Verified 10/13/24 23:59 IN FACE apple Allergy Unknown HIVES Verified 10/13/24 23:59 Bactrim Allergy Unknown THRUSH Unverified 04/10/18 11:09 cabbage Allergy Unknown HIVES Verified 10/13/24 23:59 nut - unspecified Allergy Unknown SWELLING Verified 10/13/24 23:59 orange Allergy Unknown HIVES Verified 10/13/24 23:59 sulfamethoxazole [Bactrim] Allergy Unknown THRUSH Unverified 10/13/24 23:59 trimethoprim [Bactrim] Allergy Unknown THRUSH Unverified 10/13/24 23:59 Home Medications Medication Instructions Recorded Confirmed Type albuterol sulfate 90 mcg/actuation 2 inh inhalation Q4H PRN Shortness 10/13/24 10/14/24 History breath activated powder inhaler Of Breath atenolol 50 mg tablet 50 mg PO DAILY 10/13/24 10/14/24 History clopidogrel 75 mg tablet (Plavix) 75 mg PO DAILY 10/13/24 10/14/24 History famotidine 40 mg tablet 40 mg PO DAILY 10/13/24 10/14/24 History montelukast 10 mg tablet 10 mg PO DAILY 10/13/24 10/14/24 History pantoprazole 40 mg tablet,delayed 40 mg PO DAILY 10/13/24 10/14/24 History release (Protonix) polyethylene glycol 3350 17 gram 17 g PO DAILY 10/13/24 10/14/24 History oral powder packet (Miralax) psyllium 1 packet PO DAILY 10/13/24 10/14/24 History Past Med/Surg History Problem List (Updated 10/14/24 @ 03:09 by Quentin Mathew MD) Acute left flank pain (Acute) Ureterolithiasis (Acute) Hypertension (Acute) Hydronephrosis due to obstruction of ureter (Acute) COVID (Acute) HTN (hypertension) (Chronic) Duodenal perforation (Acute) Dysphagia (Acute) Hemorrhagic cystitis (Acute) Hemorrhagic cystitis (Acute) Swelling of right little finger (Acute) Social History Smoking Status: Current every day smoker Tobacco Type: Cigarettes Do You Dip or Chew Tobacco: No; Hx Alcohol Use: No Hx Substance Use: No Preferred Language: Irish Communication Ability: Effective Chemical Worker Required: No Beliefs That Will Affect Care: None Current Living Situation: Alone Other Information That Helps Us Care for You: No Feels Safe at Home: Yes Safety Concerns: Feels Safe At This Time Assistive Devices: Glasses Review of Systems Review of Systems: All systems reviewed & are unremarkable except as noted in HPI & below Physical Exam Physical Exam: General- Not in acute distress Head- atraumatic Eyes- PERRL. ENT- oropharynx clear Neck- supple, no JVD. Lungs- clear to auscultation no wheezing or crackles Heart- regular rate and rhythm; no murmur, no gallop. Abdomen- normal bowel sounds, soft, nontender, no distension. No cva tenderness Extremities- no pretibial edema, no erythema seen Neuro- alert, oriented PERRL, no facial palsy; no dysarthria; moves extremities Results & Data Results & Data Vital Signs (Past 12 Hours) Vital Signs Temp Pulse Pulse Resp BP BP Pulse Ox 10/13/24 23:04 81 10/13/24 22:52 73 25 H 184/112 H 93 10/13/24 22:00 95 H 26 H 208/115 H 93 10/13/24 21:30 105 H 18 200/120 H 91 10/13/24 20:55 80 19 204/107 H 93 10/13/24 20:30 87 20 186/133 H 93 10/13/24 20:04 90 20 195/106 H 92 10/13/24 19:55 87 22 250/133 H 93 10/13/24 19:07 64 19 221/111 H 93 10/13/24 19:02 63 10/13/24 18:57 74 18 91 10/13/24 18:57 91 10/13/24 17:57 18 96 10/13/24 17:57 36.6 C 71 18 239/131 H 98 O2 Del Method 10/13/24 23:04 10/13/24 22:52 Room Air 10/13/24 22:00 Room Air 10/13/24 21:30 Room Air 10/13/24 20:55 Room Air 10/13/24 20:30 Room Air 10/13/24 20:04 Room Air 10/13/24 19:55 Room Air 10/13/24 19:07 Room Air 10/13/24 19:02 10/13/24 18:57 Room Air 10/13/24 18:57 Room Air 10/13/24 17:57 10/13/24 17:57 Diagnostic Findings Laboratory Results WBC 8.77 K/ul (4.8-10.8) 10/13/24 18:12 RBC 4.92 M/uL (4.20-5.40) 10/13/24 18:12 Hgb 14.7 g/dl (12.0-16.0) 10/13/24 18:12 Hct 43.0 % (37.0-47.0) 10/13/24 18:12 MCV 87.4 fL (80.0-100.0) 10/13/24 18:12 MCH 29.9 pg (25.0-34.0) 10/13/24 18:12 MCHC 34.2 g/dL (32.0-36.0) 10/13/24 18:12 RDW Std Deviation 42.1 fL (36.4-46.3) 10/13/24 18:12 RDW Coeff of Heri 13.2 % (11.5-14.5) 10/13/24 18:12 Plt Count 244 K/uL (130-400) 10/13/24 18:12 MPV 9.9 fL (9.4-12.4) 10/13/24 18:12 Immature Gran % (Auto) 0.3 % 10/13/24 18:12 Neut % (Auto) 56.0 % 10/13/24 18:12 Lymph % (Auto) 31.0 % 10/13/24 18:12 [place] % (Auto) 10.5 % 10/13/24 18:12 Eos % (Auto) 1.5 % 10/13/24 18:12 Baso % (Auto) 0.7 % 10/13/24 18:12 Neut # (Auto) 4.91 K/uL (1.40-6.50) 10/13/24 18:12 Lymph # (Auto) 2.72 K/uL (1.20-3.40) 10/13/24 18:12 [place] # (Auto) 0.92 K/uL (0.11-0.59) H 10/13/24 18:12 Eos # (Auto) 0.13 K/uL (0.00-0.50) 10/13/24 18:12 Baso # (Auto) 0.06 K/uL (0.00-0.20) 10/13/24 18:12 Immature Gran # (Auto) 0.03 K/uL (0.01-0.20) 10/13/24 18:12 PT 9.7 Seconds (9.0-12.0) 10/13/24 18:12 INR 0.9 (0.9-1.1) 10/13/24 18:12 APTT 25 Seconds (21-31) 10/13/24 18:12 PTT Ratio 0.9 10/13/24 18:12 Sodium 142 mmol/L (136-145) 10/13/24 18:12 Potassium 4.0 mmol/L (3.5-5.1) 10/13/24 18:12 Chloride 108 mmol/L (98-107) H 10/13/24 18:12 Carbon Dioxide 28 mmol/L (21-32) 10/13/24 18:12 Anion Gap 6 (3-11) 10/13/24 18:12 BUN 21 mg/dl (6-23) 10/13/24 18:12 Creatinine 1.01 mg/dl (0.6-1.2) 10/13/24 18:12 Est Cr Clr Drug Dosing 50.3 ml/min 10/13/24 18:12 eGFR 59.15 10/13/24 18:12 BUN/Creatinine Ratio 20.8 (10-20) H 10/13/24 18:12 Glucose 115 mg/dl (70-99(Fasting)) H 10/13/24 18:12 Calcium 9.2 mg/dl (8.6-10.3) 10/13/24 18:12 Total Bilirubin 0.5 mg/dl (0.2-1.0) 10/13/24 18:12 AST 18 U/L (13-39) 10/13/24 18:12 ALT 18 U/L (7-52) 10/13/24 18:12 Alkaline Phosphatase 89 U/L (34-104) 10/13/24 18:12 Troponin I High Sens 3.1 pg/ml (0-14) 10/13/24 18:12 Total Protein 7.0 gm/dl (6.0-8.3) 10/13/24 18:12 Albumin 4.0 gm/dl (3.4-5.0) 10/13/24 18:12 Globulin 3.0 gm/dl (2.5-4.0) 10/13/24 18:12 Albumin/Globulin Ratio 1.3 (0.9-2) 10/13/24 18:12 Urine Color Yellow 10/13/24 18:40 Urine Appearance Clear (Clear) 10/13/24 18:40 Urine pH 6.0 (4.5-7.5) 10/13/24 18:40 Ur Specific [place] 1.017 (1.000-1.030) 10/13/24 18:40 Urine Protein Negative (Negative) 10/13/24 18:40 Urine Glucose (UA) Negative (Negative) 10/13/24 18:40 Urine Ketones Negative (Negative) 10/13/24 18:40 Urine Blood Trace (Negative) H 10/13/24 18:40 Urine Nitrite Negative (Negative) 10/13/24 18:40 Urine Bilirubin Negative (Negative) 10/13/24 18:40 Urine Urobilinogen Negative (Negative) 10/13/24 18:40 Ur Leukocyte Esterase Negative (Negative) 10/13/24 18:40 Urine WBC (Auto) 0-5 /hpf (0-5) 10/13/24 18:40 Urine RBC (Auto) 3-5 /hpf (0-2) H 10/13/24 18:40 U Hyaline Cast (Auto) 0-2 /lpf (0-2) 10/13/24 18:40 U Epithel Cells (Auto) 0-2 /hpf (0-2) 10/13/24 18:40 Urine Bacteria (Auto) None Seen (None Seen) 10/13/24 18:40 Impressions Abdomen/Pelvis CT 10/13/24 18:16 Exam(s): CT ABDOMEN + PELVIS With Contrast IV Amt: 113ML OPTIRAY 320 EXAM: CT Abdomen and Pelvis With Intravenous Contrast CLINICAL HISTORY: Reason for exam: left flank pain. TECHNIQUE: Axial computed tomography images of the abdomen and pelvis with intravenous contrast. CTDI is 21.18 mGy and DLP is 1008.65 mGy-cm. Automated exposure control was utilized for the study. A dose lowering technique was utilized adhering to the principles of ALARA. CONTRAST: Patient received 113ML OPTIRAY 320 of IV contrast COMPARISON: July 10, 2015 FINDINGS: Lung bases: Unremarkable. No mass. No consolidation. ABDOMEN: Liver: The liver is enlarged measuring 20 cm craniocaudad. No focal liver mass lesion is seen. Gallbladder and bile ducts: Previous cholecystectomy. No choledocholithiasis is seen. No ductal dilation. Pancreas: Unremarkable. No mass. No ductal dilation. Spleen: Unremarkable. No splenomegaly. Adrenals: Unremarkable. No mass. Kidneys and ureters: Slightly delayed left nephrogram with mild left hydronephrosis and hydroureter down to a 2 mm calculus in the distal left ureter located within 1 cm of the ureterovesicular junction.. Stomach and bowel: There is diverticulosis of the left and sigmoid colon without evidence of acute diverticulitis. There is mild diffuse wall thickening throughout the entire colon due to decompressed status. No pneumoperitoneum, free fluid, or acute inflammation is seen. There is an anastomotic staple line along the stomach which is otherwise unremarkable. No obstruction. PELVIS: Appendix: No findings to suggest acute appendicitis. Bladder: Unremarkable. No mass. Reproductive: Unremarkable as visualized. ABDOMEN and PELVIS: Intraperitoneal space: See above. Bones/joints: No acute fracture. No dislocation. Soft tissues: Unremarkable. Vasculature: The abdominal aorta is mildly calcified but nondilated. Lymph nodes: Unremarkable. No enlarged lymph nodes. IMPRESSION: 1. Slightly delayed left nephrogram with mild left hydronephrosis and hydroureter down to a 2 mm calculus in the distal left ureter located within 1 cm of the ureterovesicular junction.. 2. There is diverticulosis of the left and sigmoid colon without evidence of acute diverticulitis. There is mild diffuse wall thickening throughout the entire colon due to decompressed status. No pneumoperitoneum, free fluid, or acute inflammation is seen. Electronically signed by: Orlando Miranda MD 10/13/24 20:08 PM Chest X-Ray 10/13/24 18:16 Chest radiograph, one view History: Chest pain Comparison: CT from 05/18/2015 Findings: Single AP view of the chest performed. No focal consolidation or pleural effusion. No pneumothorax. The cardiomediastinal silhouette is within normal limits. Prominence of the pulmonary vasculature. Calcified granuloma over the right lower lung. No evidence for lymphadenopathy. No visualized bony or soft tissue abnormality. Impression: Prominence of the pulmonary vasculature suggesting pulmonary venous hypertension. Otherwise no acute process Electronically signed by Stu Quintanilla 10-13-2024 6:52 PM ECG Additional Comments: ECG. Normal sinus rhythm rate 64. No significant changes found. QTc 441. Code Status & VTE Plan VTE Prophylaxis Plan VTE Prophylaxis will be ordered: Yes
[2024-10-14] MEDS: hydrALAZINE HCL 20 MG/ML VIAL IV STA (05:34)
[2024-10-14] MEDS: HYDROmorphone INJ 0.5 MG/0.5 ML SYR IV PRN (05:43)
[2024-10-14 06:48] LABS: Basophils # (auto) 0.04 K/uL (0.00-0.20); Basophils % (auto) 0.2 %; Hematocrit (blood only) 43.5 % (37.0-47.0); Immature Granulocytes # (auto) 0.08 K/uL (0.01-0.20); Immature Granulocytes % (auto) 0.5 %; Lymphocytes # (auto) 1.17 K/uL (1.20-3.40); Lymphocytes % (auto) 7.2 %; Mean Corpuscular Hemoglobin 30.2 pg (25.0-34.0); Mean Corpuscular Hgb Conc 34.5 g/dL (32.0-36.0); Mean Corpuscular Volume 87.5 fL (80.0-100.0); Mean Platelet Volume 10.1 fL (9.4-12.4); Monocytes # (auto) 0.98 K/uL (0.11-0.59); Neutrophils # (auto) 13.99 K/uL (1.40-6.50); Neutrophils % (auto) 86.1 %; Platelet Count 236 K/uL (130-400); RDW Coefficient of Variation 13.2 % (11.5-14.5); Red Blood Count 4.97 M/uL (4.20-5.40); White Blood Count 16.26 K/ul (4.8-10.8)
[2024-10-14 07:06] LABS: BUN Creatinine Ratio 19.6 (10-20); Calcium 8.6 mg/dl (8.6-10.3); Creatinine Clr Calc Pharmacy 56.9 ml/min; Magnesium 1.9 mg/dl (1.7-2.4); Potassium 4.1 mmol/L (3.5-5.1)
[2024-10-14] MEDS: TAMSULOSIN HCL 0.4 MG CAP PO ONE (07:48)
--- NOTE | 2024-10-14 08:23 | Urology Consultation ---
Date of Consultation October 14, 2024 Assessment & Plan (1) Ureterolithiasis: (2) Hydronephrosis due to obstruction of ureter: Plan 74-year-old female presented with left flank pain. CT scan showed a 2 mm left UVJ calculus with hydronephrosis. Discussed options with the patient which would be medical expulsive therapy versus stent placement. She is afraid of going home and having the pain returned so she would like to proceed with stent placement Consented for cystoscopy, left retrograde pyelogram, left ureteral stent and possible stone treatment. Explained that I would only remove the stone if it visible when I perform cystoscopy. Consent obtained Patient marked Please keep patient n.p.o. until procedure this afternoon Ancef to the OR History of Present Illness Attending Physician: Belinda Mondragon MD History of Present Illness 74-year-old female presented with left flank pain. CT scan showed a 2 mm left UVJ calculus with hydronephrosis. She has been afebrile with stable vitals. Labs showed a leukocytosis of 16, creatinine of 0.92 and a urinalysis that only had microscopic hematuria. Patient does report feeling better now but is concerned about having pain if she were to be discharged. Allergies Allergy/AdvReac Type Severity Reaction Status Date / Time spironolactone Allergy Mild RAPID HR Verified 10/13/24 23:59 AND SOB SUN Inhibitors Allergy Unknown SWELLING Verified 10/13/24 23:59 IN FACE apple Allergy Unknown HIVES Verified 10/13/24 23:59 Bactrim Allergy Unknown THRUSH Unverified 04/10/18 11:09 cabbage Allergy Unknown HIVES Verified 10/13/24 23:59 nut - unspecified Allergy Unknown SWELLING Verified 10/13/24 23:59 orange Allergy Unknown HIVES Verified 10/13/24 23:59 sulfamethoxazole [Bactrim] Allergy Unknown THRUSH Unverified 10/13/24 23:59 trimethoprim [Bactrim] Allergy Unknown THRUSH Unverified 10/13/24 23:59 Home Medications Medication Instructions Recorded Confirmed Type albuterol sulfate 90 mcg/actuation 2 inh inhalation Q4H PRN Shortness 10/13/24 10/14/24 History breath activated powder inhaler Of Breath atenolol 50 mg tablet 50 mg PO DAILY 10/13/24 10/14/24 History clopidogrel 75 mg tablet (Plavix) 75 mg PO DAILY 10/13/24 10/14/24 History famotidine 40 mg tablet 40 mg PO DAILY 10/13/24 10/14/24 History montelukast 10 mg tablet 10 mg PO DAILY 10/13/24 10/14/24 History pantoprazole 40 mg tablet,delayed 40 mg PO DAILY 10/13/24 10/14/24 History release (Protonix) polyethylene glycol 3350 17 gram 17 g PO DAILY 10/13/24 10/14/24 History oral powder packet (Miralax) psyllium 1 packet PO DAILY 10/13/24 10/14/24 History Patient History Social History Smoking Status: Current every day smoker Tobacco Type: Cigarettes Do You Dip or Chew Tobacco: No; Hx Alcohol Use: No Hx Substance Use: No Preferred Language: Greek Communication Ability: Effective Insurance Marketing Rep Required: No Beliefs That Will Affect Care: None Current Living Situation: Alone Other Information That Helps Us Care for You: No Feels Safe at Home: Yes Safety Concerns: Feels Safe At This Time Assistive Devices: Glasses Physical Exam Physical Exam: General: Alert and oriented, no acute distress HEENT: Normocephalic, mucous membranes moist Pulmonary: Nonlabored respirations Abdomen: Nondistended Extremities: Moves all 4 spontaneously Neuro: No gross deficits Skin: Warm, dry, no rashes noted Results & Data Vital Signs (Past 12 Hours) Vital Signs Temp Pulse Pulse Resp BP BP Pulse Ox 10/14/24 08:15 92 H 18 119/74 94 10/14/24 08:00 95 H 20 131/75 93 10/14/24 07:45 87 16 136/78 92 10/14/24 07:39 93 H 14 130/69 91 10/14/24 07:38 99 H 10/14/24 07:06 98 H 16 160/76 H 92 10/14/24 06:47 92 H 18 173/98 H 92 10/14/24 05:48 87 178/99 H 10/14/24 05:30 91 H 18 223/117 H 93 10/14/24 04:46 87 16 213/119 H 93 10/14/24 03:18 79 198/107 H 10/14/24 03:17 36.8 C 83 19 198/107 H 93 10/14/24 02:46 81 229/128 H 10/14/24 02:20 85 210/111 H 10/14/24 01:33 84 211/115 H 10/14/24 01:10 78 195/123 H 10/14/24 01:00 80 18 219/122 H 93 10/13/24 23:04 81 10/13/24 22:52 73 25 H 184/112 H 93 10/13/24 22:00 95 H 26 H 208/115 H 93 10/13/24 21:30 105 H 18 200/120 H 91 10/13/24 20:55 80 19 204/107 H 93 10/13/24 20:30 87 20 186/133 H 93 O2 Del Method 10/14/24 08:15 Room Air 10/14/24 08:00 Room Air 10/14/24 07:45 Room Air 10/14/24 07:39 Room Air 10/14/24 07:38 10/14/24 07:06 Room Air 10/14/24 06:47 Room Air 10/14/24 05:48 10/14/24 05:30 Room Air 10/14/24 04:46 Room Air 10/14/24 03:18 10/14/24 03:17 Room Air 10/14/24 02:46 10/14/24 02:20 10/14/24 01:33 10/14/24 01:10 10/14/24 01:00 Room Air 10/13/24 23:04 10/13/24 22:52 Room Air 10/13/24 22:00 Room Air 10/13/24 21:30 Room Air 10/13/24 20:55 Room Air 10/13/24 20:30 Room Air PG Care Time/CCT Total # of Minutes Spent Total Time Spent with Patient: Total time spent is greater than 50% in coordination of care (as documented) at patient's floor/unit and/or counseling patient: Coding Level of Care Code 51262 INT INP/OBS CARE 255MIN Diagnoses Ureterolithiasis N20.1 Hydronephrosis due to obstruction of ureter N13.1
[2024-10-14] MEDS: PANTOprazole 40 MG TAB PO SCH (09:52)
[2024-10-14] MEDS: ATENOLOL 50 MG TABLET PO SCH (09:52)
[2024-10-14] MEDS: CLOPIDOGREL BISULFATE 75 MG TAB PO SCH (09:52)
[2024-10-14] MEDS: FAMOTIDINE 40 MG TABLET PO SCH (09:52)
[2024-10-14] MEDS: MONTELUKAST SODIUM 10 MG TABLET PO SCH (09:52)
[2024-10-14] MEDS: POLYETHYLENE (MIRALAX) 17 GM PACK PO SCH (09:54)
[2024-10-14] MEDS: ACETAMINOPHEN 325 MG TAB PO PRN (09:55)
--- NOTE | 2024-10-14 10:45 | Anesthesiology Consultation ---
Date of Service October 14, 2024 Assessment & Plan Chart Review Chart Review: Acceptable Risk for Surgery and Patient NOT seen in Pre Admission Testing Consults Requested none ASA ASA4 Proposed Anesthesia Anesthesia Type: General History Surgery Operation Date: 10/14/24 13:00 Proposed Procedures p Laser Lithotripsy - Rafael Villar MD Height/Weight Height: 5 ft 4 in Weight: 81 kg Allergies Allergy/AdvReac Type Severity Reaction Status Date / Time spironolactone Allergy Mild RAPID HR Verified 10/13/24 23:59 AND SOB SUN Inhibitors Allergy Unknown SWELLING Verified 10/13/24 23:59 IN FACE apple Allergy Unknown HIVES Verified 10/13/24 23:59 Bactrim Allergy Unknown THRUSH Unverified 04/10/18 11:09 cabbage Allergy Unknown HIVES Verified 10/13/24 23:59 nut - unspecified Allergy Unknown SWELLING Verified 10/13/24 23:59 orange Allergy Unknown HIVES Verified 10/13/24 23:59 sulfamethoxazole [Bactrim] Allergy Unknown THRUSH Unverified 10/13/24 23:59 trimethoprim [Bactrim] Allergy Unknown THRUSH Unverified 10/13/24 23:59 Medications Home Medications Medication Instructions Recorded Confirmed Last Taken albuterol sulfate 90 mcg/actuation 2 inh inhalation Q4H PRN Shortness 10/13/24 10/14/24 Unknown breath activated powder inhaler Of Breath atenolol 50 mg tablet 50 mg PO DAILY 10/13/24 10/14/24 Unknown clopidogrel 75 mg tablet (Plavix) 75 mg PO DAILY 10/13/24 10/14/24 Unknown famotidine 40 mg tablet 40 mg PO DAILY 10/13/24 10/14/24 Unknown montelukast 10 mg tablet 10 mg PO DAILY 10/13/24 10/14/24 Unknown pantoprazole 40 mg tablet,delayed 40 mg PO DAILY 10/13/24 10/14/24 Unknown release (Protonix) polyethylene glycol 3350 17 gram 17 g PO DAILY 10/13/24 10/14/24 Unknown oral powder packet (Miralax) psyllium 1 packet PO DAILY 10/13/24 10/14/24 Unknown Active Medications Generic Name Dose Route Start Last Admin Trade Name Freq PRN Reason Stop Dose Admin Acetaminophen 650 mg 10/14/24 02:49 10/14/24 09:55 Acetaminophen 325 Mg Tab PO 11/13/24 02:48 650 mg Q4H PRN Administration pain/fever Atenolol 50 mg 10/14/24 09:00 10/14/24 09:52 Atenolol 50 Mg Tablet PO 11/13/24 08:59 50 mg DAILY PATRICIA Administration Clopidogrel Bisulfate 75 mg 10/14/24 09:00 10/14/24 09:52 Clopidogrel Bisulfate 75 Mg Tab PO 11/13/24 08:59 75 mg DAILY PATRICIA Administration Famotidine 40 mg 10/14/24 09:00 10/14/24 09:52 Famotidine 40 Mg Tablet PO 11/13/24 08:59 40 mg DAILY PATRICIA Administration Hydromorphone HCl 0.5 mg 10/14/24 02:49 10/14/24 05:43 Hydromorphone Inj 0.5 Mg/0.5 Ml Syr IV 10/28/24 02:48 0.5 mg Q4H PRN Administration Severe Pain (Scale 7, 8, 9,10) Sodium Chloride 1,000 mls @ 125 mls/hr 10/14/24 03:00 10/14/24 03:36 Nss IV 10/15/24 02:59 125 mls/hr .Q8H PATRICIA Administration Montelukast Sodium 10 mg 10/14/24 09:00 10/14/24 09:52 Montelukast Sodium 10 Mg Tablet PO 11/13/24 08:59 10 mg DAILY PATRICIA Administration Pantoprazole Sodium 40 mg 10/14/24 09:00 10/14/24 09:52 Pantoprazole 40 Mg Tab PO 11/13/24 08:59 40 mg DAILY PATRICIA Administration Polyethylene Glycol 17 gm 10/14/24 09:00 10/14/24 09:54 Polyethylene (Miralax) 17 Gm Pack PO 11/13/24 08:59 Not Given DAILY PATRICIA Past Medical History obese HTN HLD ASCVD Ao Hx/o Duodenal perforation Hydronephrosis 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 Tobacco abuse S/P CVA Exercise / Class Metabolic Activity III < 4 Walking/Shop/Light housework Past Anesthesia History No Hx of Anesthesia Complications and No Family Hx of Anesthesia Complications History of PONV No Hx of PONV and No Hx of Motion Sickness Social History Smoking Status: Current every day smoker Do You Dip or Chew Tobacco: No Hx Alcohol Use: No Hx Substance Use: No Physical Exam Vital Signs Last Vital Signs Temp 36.8 C 10/14/24 09:19 Pulse 92 H 10/14/24 09:19 Resp 20 10/14/24 09:19 BP 149/78 H 10/14/24 09:19 Pulse Ox 92 10/14/24 09:19 O2 Del Method Room Air 10/14/24 09:19 Testing Laboratory Results 10/14/24 06:20 10/14/24 06:20 PT 9.7 Seconds (9.0-12.0) 10/13/24 18:12 INR 0.9 (0.9-1.1) 10/13/24 18:12 APTT 25 Seconds (21-31) 10/13/24 18:12 Urine Color Yellow 10/13/24 18:40 Urine Appearance Clear (Clear) 10/13/24 18:40 Urine pH 6.0 (4.5-7.5) 10/13/24 18:40 Ur Specific [place] 1.017 (1.000-1.030) 10/13/24 18:40 Urine Protein Negative (Negative) 10/13/24 18:40 Urine Glucose (UA) Negative (Negative) 10/13/24 18:40 Urine Ketones Negative (Negative) 10/13/24 18:40 Urine Nitrite Negative (Negative) 10/13/24 18:40 Ur Leukocyte Esterase Negative (Negative) 10/13/24 18:40 Urine WBC (Auto) 0-5 /hpf (0-5) 10/13/24 18:40 Urine RBC (Auto) 3-5 /hpf (0-2) H 10/13/24 18:40 U Hyaline Cast (Auto) 0-2 /lpf (0-2) 10/13/24 18:40 U Epithel Cells (Auto) 0-2 /hpf (0-2) 10/13/24 18:40 Urine Bacteria (Auto) None Seen (None Seen) 10/13/24 18:40 Electrocardiogram Date: 10/13/24 Findings: + NSR @ (@ 64) and + LVH Chest X-Ray Date: 10/13/24 Findings: + NAD and + other (pulmonary vasculature prominence)
[2024-10-14] MEDS ORDERED: PROPOFOL IV EMULSION 10 MG/ML 20 ML VIAL IV ONE ×2 (13:59→14:52)
[2024-10-14] MEDS ORDERED: fentaNYL citrate PF 100 MCG/2 ML VIAL ONE (13:59)
[2024-10-14] MEDS ORDERED: ONDANSETRON INJ 2 MG/ML 2 ML VIAL ONE (13:59)
[2024-10-14] MEDS ORDERED: DEXAMETHASONE SOD INJ 4 MG/ML VIAL ONE (13:59)
[2024-10-14] MEDS ORDERED: MIDAZOLAM HCL 1 MG/ML 2ML VIAL ONE (13:59)
[2024-10-14] MEDS ORDERED: FLUMAZENIL 0.1 MG/1 ML 10 ML VIAL IV PRN (14:42)
[2024-10-14] MEDS ORDERED: PROMETHAZINE HCL 6.25 MG in SODIUM CHLORIDE 0.9% 50 ML IV PRN (14:42)
[2024-10-14] MEDS ORDERED: ATROPINE SULFATE 0.1 MG/ML 10ML SYR IV PRN (14:42)
[2024-10-14] MEDS ORDERED: ePHEDrine sulfate 50 MG/ML AMP IV PRN (14:42)
[2024-10-14] MEDS ORDERED: NALOXONE HCL 0.4 MG/1 ML VIAL/CARP IV PRN (14:42)
[2024-10-14] MEDS ORDERED: fentaNYL citrate PF 100 MCG/2 ML VIAL IV PRN (14:42)
[2024-10-14] MEDS ORDERED: ceFAZolin 330 MG/ML 1 GM VIAL ONE (14:53)
[2024-10-14] MEDS: ceFAZolin 2000MG 2,000 MG/15 ML SYR IV SCH (14:54)
--- NOTE | 2024-10-14 15:08 | Operative Report ---
[facility] Post Operative Report Pre & Post Diagnosis Cystoscopy, left retrograde pyelogram with radiographic interpretation, left ureteral stent placement Operation Date: 10/14/24 13:00 <No data on this case meets the specified criteria> I identified the patient and participated in the time-out.: Yes Procedure Operation Date: 10/14/24 13:00 <No data on this case meets the specified criteria> Surgeon Rafael Villar MD [employer] None Estimated Blood Loss 0 Findings See Below When nursing was prepping her, it appeared to be a small stone sitting at her vaginal orifice. Unable to get semirigid scope in the distal ureter. Retrograde showed mild hydronephrosis stent in appropriate position Specimens Possible stone sent for analysis Drains 6 Filipino by 24 cm left ureteral stent Anesthesia Type MAC Complications none Indications 74-year-old female with a 2 mm distal left ureteral calculus who opted for stent placement due to pain Description of Procedure After informed consent was obtained, the patient was transported operative suite. MAC anesthesia was induced. The patient was placed in dorsal lithotomy position prepped and draped in a sterile fashion. They received preoperative Ancef for antibiotic prophylaxis. An appropriate surgical timeout was performed. While nursing was prepping the patient, they seem to find what appeared to be a small stone at her vaginal orifice. I still elected to perform the procedure as there is no guarantee that this was the stone that was seen in her left distal ureter. A 22 Filipino rigid scope was inserted per urethra into the bladder. Carvalho cystoscopy revealed no stones or lesions. Advanced a sensor wire into the kidney. Cystoscope was removed. Advanced a semirigid ureteroscope into the bladder and attempted to navigate this in the distal ureter to evaluate if she passed her stone the ureteral orifice was narrow and I was unable to do this. I elected to place a stent at this time. 5 Filipino open-ended catheter was advanced over the wire and the wire was removed. A left retrograde pyelogram was shot which showed mild left hydronephrosis. A sensor wire was advanced into the kidney and confirmed fluoroscopically. 5 Filipino open-ended catheter was removed. A 6 Filipino by 24 cm left ureteral stent was deployed with a good proximal coil in the renal pelvis and a good distal coil noted in the bladder. These were confirmed fluoroscopically and under direct visualization, respectively. The bladder was emptied and the scope was removed. This concluded the end of the case. All counts were correct at the end of the case. I was present, scrubbed, and actively participated for the entirety of the procedure. I attest to the content of the Intraoperative Record and any orders documented therein. Any exceptions are noted below.
[2024-10-14] MEDS ORDERED: DIATRIZOATE MEGLUMINE 30% 100ML VIAL INSTIL PRN (15:17)
[2024-10-14 15:56] VITALS: O2SAT 93
--- NOTE | 2024-10-14 15:58 | Anesthesiology Progress Note ---
Date of Service October 14, 2024 Anesthesia Post Procedure Vital Signs Vital Signs: Temp Pulse Pulse Resp BP BP BP 10/14/24 15:50 36.4 C L 74 15 127/64 10/14/24 15:40 76 18 117/66 10/14/24 15:30 76 20 131/59 L 10/14/24 15:20 74 12 107/76 10/14/24 15:13 36.0 C L 72 16 97/52 L 10/14/24 12:01 37.0 C 83 18 108/63 10/14/24 09:19 36.8 C 92 H 20 149/78 H 10/14/24 08:51 95 H 16 133/74 10/14/24 08:30 92 H 18 117/74 10/14/24 08:15 92 H 18 119/74 10/14/24 08:00 95 H 20 131/75 10/14/24 07:45 87 16 136/78 10/14/24 07:39 93 H 14 130/69 10/14/24 07:38 99 H 10/14/24 07:06 98 H 16 160/76 H 10/14/24 06:47 92 H 18 173/98 H 10/14/24 05:48 87 178/99 H 10/14/24 05:30 91 H 18 223/117 H 10/14/24 04:46 87 16 213/119 H 10/14/24 03:18 79 198/107 H 10/14/24 03:17 36.8 C 83 19 198/107 H 10/14/24 02:46 81 229/128 H 10/14/24 02:20 85 210/111 H 10/14/24 01:33 84 211/115 H 10/14/24 01:10 78 195/123 H 10/14/24 01:00 80 18 219/122 H 10/13/24 23:04 81 10/13/24 22:52 73 25 H 184/112 H 10/13/24 22:00 95 H 26 H 208/115 H 10/13/24 21:30 105 H 18 200/120 H 10/13/24 20:55 80 19 204/107 H 10/13/24 20:30 87 20 186/133 H 10/13/24 20:04 90 20 195/106 H 10/13/24 19:55 87 22 250/133 H 10/13/24 19:07 64 19 221/111 H 10/13/24 19:02 63 10/13/24 18:57 74 18 10/13/24 18:57 10/13/24 17:57 18 10/13/24 17:57 36.6 C 71 18 239/131 H Pulse Ox O2 Del Method O2 Flow Rate 10/14/24 15:50 93 Room Air 10/14/24 15:40 92 Room Air 10/14/24 15:30 92 Room Air 10/14/24 15:20 93 Oxymask 7 10/14/24 15:13 93 Oxymask 7 10/14/24 12:01 93 Room Air 10/14/24 09:19 92 Room Air 10/14/24 08:51 93 Room Air 10/14/24 08:30 94 Room Air 10/14/24 08:15 94 Room Air 10/14/24 08:00 93 Room Air 10/14/24 07:45 92 Room Air 10/14/24 07:39 91 Room Air 10/14/24 07:38 10/14/24 07:06 92 Room Air 10/14/24 06:47 92 Room Air 10/14/24 05:48 10/14/24 05:30 93 Room Air 10/14/24 04:46 93 Room Air 10/14/24 03:18 10/14/24 03:17 93 Room Air 10/14/24 02:46 10/14/24 02:20 10/14/24 01:33 10/14/24 01:10 10/14/24 01:00 93 Room Air 10/13/24 23:04 10/13/24 22:52 93 Room Air 10/13/24 22:00 93 Room Air 10/13/24 21:30 91 Room Air 10/13/24 20:55 93 Room Air 10/13/24 20:30 93 Room Air 10/13/24 20:04 92 Room Air 10/13/24 19:55 93 Room Air 10/13/24 19:07 93 Room Air 10/13/24 19:02 10/13/24 18:57 91 Room Air 10/13/24 18:57 91 Room Air 10/13/24 17:57 96 10/13/24 17:57 98 Pain Intensity Left Flank: Pain Intensity: 5 Head: Pain Intensity: 7 Transfer of Care Handoff Completed per policy Notes Mental Status: alert / awake / arousable Patient Amnestic to Procedure: Yes Nausea / Vomiting: adequately controlled Pain: adequately controlled Airway Patency, RR, SpO2: stable & adequate BP & HR: stable & adequate Hydration State: stable & adequate Anesthetic Complications: no major complications apparent
[2024-10-14 16:02] VITALS: PULSE 77
--- NOTE | 2024-10-14 16:24 | Fluoroscopy Report ---
FL retrograde includes kub CLINICAL HISTORY: LEFT SIDE STENT TECHNIQUE: 3 views were obtained with the C-arm in the OR with the above procedure. Total fluoroscopy time was 7.1 seconds. Radiation dose was 1.35 mGy. Comparison: Comparison is made to upper GI 12/06/2015 FINDINGS/IMPRESSION: Intraoperative images were obtained of left stent placement and retrograde pyelo gram. Please correlate with intraoperative fluoroscopy and operative report. ACT 112: Negative or not required by law. Electronically signed by: Moncho London M.D. 10/14/2024 4:23 PM
--- NOTE | 2024-10-14 16:30 | Discharge Summary ---
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 Since evening she noticed severe left flank pain associated with nausea and vomited couple of times and came to the ER. Imaging studies showed 2 mm left ureteral stone with mild hydronephrosis. Patient had chills but no fevers. No burning micturition. No hematuria. Normal bowel movements. Patient had no significant finding besides a WBC count of 16,000, patient was seen by urology and taken for stent placement, after the procedure patient was seen and examined, she tolerated the procedure well, her urine sample was surprisingly very clean, she had several high blood pressure reading but in fact that was because of the pain since but pain got under better control and mainly after the procedure her blood pressure all remained stable. Patient will be discharged home with follow-up as outpatient, I prescribed Flomax 0.4 mg daily for 20 days. She is to follow-up with urology. Updated Medication List Medication Instructions Recorded Confirmed Type albuterol sulfate 90 mcg/actuation 2 inh inhalation Q4H PRN Shortness 10/13/24 10/14/24 History breath activated powder inhaler Of Breath atenolol 50 mg tablet 50 mg PO DAILY 10/13/24 10/14/24 History clopidogrel 75 mg tablet (Plavix) 75 mg PO DAILY 10/13/24 10/14/24 History famotidine 40 mg tablet 40 mg PO DAILY 10/13/24 10/14/24 History montelukast 10 mg tablet 10 mg PO DAILY 10/13/24 10/14/24 History pantoprazole 40 mg tablet,delayed 40 mg PO DAILY 10/13/24 10/14/24 History release (Protonix) polyethylene glycol 3350 17 gram 17 g PO DAILY 10/13/24 10/14/24 History oral powder packet (Miralax) psyllium 1 packet PO DAILY 10/13/24 10/14/24 History tamsulosin 0.4 mg capsule (Flomax) 0.4 mg PO DAILY #20 caps 10/14/24 Rx Hospital Stay Data Consultations 10/13/24 23:17 ED Decision to Admit Stat 10/14/24 08:00 Consult Urology Routine Procedures Performed Operation Date: 10/14/24 13:00 Actual Procedures p Cystoscopy, Left Retrograde Pyelogram, Left Ureteroscopy, and Left Ureterl Stent Insertion. (Left) - Rafael Villar MD Diagnostic Imagining Performed 10/13/24 18:16 CT abd pelvis IV con only Stat 10/14/24 [place] retrograde includes kub Routine Pending Results Patient Have Any Pending Studies at Discharge: No Discharge Instructions Given to Patient (Per Discharging Provider) Continue taking your medications as prescribed Total Time Total Time Spent Total Time Spent (In Minutes): More than 35 minutes
[2024-10-14 16:36] VITALS: BP 137/74; RESP 20; TEMP 98.1
--- NOTE | 2024-10-15 21:22 | Electrocardiogram Report ---
Test Reason : Blood Pressure : */* mmHG Vent. Rate : 64 BPM Atrial Rate : 64 BPM P-R Int : 166 ms QRS Dur : 82 ms QT Int : 428 ms P-R-T Axes : 83 -24 41 degrees QTcB Int : 441 ms Normal sinus rhythm Minimal voltage criteria for LVH, may be normal variant ( R in aVL ) Borderline ECG When compared with ECG of 23-Mar-2023 23:01, No significant change was found Confirmed by Randall Walters ([id number]) on 10/15/2024 9:22:02 PM Referred By: REFERRED SELF Confirmed By: Randall Walters
== END 2024-10-14 18:34 | disposition home or self-care (01) | DRG 661 ==
LOC: ED 17:56 → EDINP 23:56 → 2S 10-14 02:50